=== PATIENT | female | born 1940 | race Caucasian/White ===

== ENCOUNTER 2016-04-26 10:25 | Inpatient (IN) | payer MEDICARE ==
[~2016-04-26] VITALS: Ht 160 cm; Wt 76.4 kg
[~2016-04-26 10:25] MED LIST: ATEN1TAB74 PO; META800 PO; PRED2.5T4 PO
[2016-04-26 10:26] VITALS: BP 172/92; PULSE 75; RESP 22; TEMP 98.4; O2SAT 94
--- NOTE | 2016-04-26 10:37 | PD ---
HPI Chief Complaint: Respiratory Symptoms Time Seen by Provider: 10:32 Travel History International Travel<30 days: No Contact w/Intl Traveler<30days: No Traveled to known affect area: No History of Present Illness HPI 76-year-old female with history of DVT/PE on Xarelto, bronchitis, here for evaluation of cough and shortness of breath. Since around 10 PM last night the patient has had cough productive of yellowish sputum. She is complaining of pain in her anterior chest when she coughs. No known history of coronary artery disease. No hemoptysis. Shortness of breath is at rest, worse with exertion. No fevers or chills. PFSH Past Medical History Arthritis: Yes Cardiovascular Problems: Yes High Cholesterol: Yes Diminished Hearing: No Gastrointestinal Disorders: Yes (IBS) Genitourinary: No Headaches: No Hypertension: Yes Musculoskeletal: Yes (FIBROMYALGIA) Neurologic: No Reproductive: No Respiratory: No Migraines: No Seizures: No ?: Not Past Surgical History Abdominal Surgery: No Cardiac Surgery: No Ear Surgery: No Endocrine Surgery: No Eye Surgery: No Genitourinary Surgery: No Gynecologic Surgery: Yes (HYSTERECTOMY) Hysterectomy: Yes Oral Surgery: No Thoracic Surgery: No Tonsillectomy: Yes Social History Alcohol Use: No Tobacco Use: No Substance Use: No Allergies-Medications (Allergen,Severity, Reaction): Coded Allergies: Codeine (Verified Allergy, Mild, EXCITABLE, 10/31/09) Erythromycins (Verified Allergy, Mild, SORES IN MOUTH, HIVES, 10/31/09) Latex (Verified Allergy, Mild, RASH, 10/31/09) Morphine (Verified Allergy, Mild, EXCITABLE, 10/31/09) Motrin (Verified Allergy, Mild, SORES IN MOUTH, HIVES, 10/31/09) Naprosyn (Verified Allergy, Mild, SORES IN MOUTH HIVES, 10/31/09) Opiate Agonists (Narcotics) (Verified Allergy, Mild, SORES IN MOUTH, HIVES , 10/31/09) Tylenol (Verified Allergy, Mild, MOUTH SORES, HIVES, 10/31/09) Doxycycline (Verified Allergy, Unknown, 04/26/16) Tetracycline (Verified Allergy, Unknown, 04/26/16) Reported Meds & Prescriptions Reported Meds & Active Scripts Active Reported Andrew Back & Body (Aspirin-Caffeine) 500-32.5 Mg Tab 1 Tab PO BID Imitrex Inj (Sumatriptan Succinate) 6 Mg/0.5 Ml Inj 6 Mg SQ ONCE PRN May repeat dose in 1 hour if needed. Bentyl (Dicyclomine HCl) 20 Mg Tab 20 Mg PO EVERY OTHER DAY Pantoprazole (Pantoprazole Sodium) 40 Mg Tab 20 Mg PO BID Celexa (Citalopram Hydrobromide) 20 Mg Tab 10 Mg PO BID Atenolol 50 Mg Tab 50 Mg PO BID Prednisone 5 Mg Tab 5 Mg PO DAILY Xarelto (Rivaroxaban) 20 Mg Tab 20 Mg PO DAILY Review of Systems Except as stated in HPI: all other systems reviewed are Neg Physical Exam Narrative GENERAL: Well-developed, well-nourished, mild respiratory distress, speaking full sentences SKIN: Warm and dry. No rash. HEAD: Atraumatic. Normocephalic. EYES: Pupils equal and round. No scleral icterus. No injection or drainage. ENT: Mucous membranes pink and moist. NECK: Trachea midline. No JVD. CARDIOVASCULAR: Regular rate and rhythm. RESPIRATORY: No accessory muscle use. Coarse breath sounds bilaterally. Breath sounds equal bilaterally. Intermittent cough. GASTROINTESTINAL: Abdomen soft, non-tender, nondistended. MUSCULOSKELETAL: No obvious deformities. No clubbing. No cyanosis. No edema. NEUROLOGICAL: Awake and alert. No obvious cranial nerve deficits. Motor grossly within normal limits. Normal speech. PSYCHIATRIC: Appropriate mood and affect; insight and judgment normal. Data Data Last Documented VS Vital Signs Date Time Temp Pulse Resp B/P Pulse Ox O2 Delivery O2 Flow Rate FiO2 04/26/16 10:44 97 Nasal Cannula 2.00 04/26/16 10:26 98.4 75 22 172/92 Orders Complete Blood Count With Diff (04/26/16 10:36) Comprehensive Metabolic Panel (04/26/16 10:36) B-Type Natriuretic Peptide (04/26/16 10:36) Act Partial Throm Time (Ptt) (04/26/16 10:36) Prothrombin Time / Inr (Pt) (04/26/16 10:36) Ckmb (Isoenzyme) Profile (04/26/16 10:36) Troponin I (04/26/16 10:36) Influenzae A/B Antigen (04/26/16 10:36) Blood Culture (04/26/16 10:36) Iv Access Insert/Monitor (04/26/16 10:36) Electrocardiogram (04/26/16 10:36) Ecg Monitoring (04/26/16 10:36) Oximetry (04/26/16 10:36) Oxygen Administration (04/26/16 10:36) Chest, Single Ap (04/26/16 10:36) Sodium Chloride 0.9% Flush (Ns Flush) (04/26/16 10:45) Methylprednisolone So Succ Inj (Solumedr (04/26/16 10:45) Albuterol-Ipratropium Neb (Duoneb Neb) (04/26/16 10:45) Urinalysis - C+S If Indicated (04/26/16 10:38) Ct Pulmonary Angiogram (04/26/16 12:12) Iohexol 350 Inj (Omnipaque 350 Inj) (04/26/16 13:30) Labs Laboratory Tests Test 04/26/16 04/26/16 10:55 12:35 White Blood Count 6.3 TH/MM3 Red Blood Count 4.27 MIL/MM3 Hemoglobin 12.9 GM/DL Hematocrit 39.1 % Mean Corpuscular Volume 91.5 FL Mean Corpuscular Hemoglobin 30.2 PG Mean Corpuscular Hemoglobin 33.0 % Concent Red Cell Distribution Width 17.3 % Platelet Count 200 TH/MM3 Mean Platelet Volume 8.8 FL Neutrophils (%) (Auto) 62.7 % Lymphocytes (%) (Auto) 15.5 % Monocytes (%) (Auto) 18.4 % Eosinophils (%) (Auto) 2.6 % Basophils (%) (Auto) 0.8 % Neutrophils # (Auto) 4.0 TH/MM3 Lymphocytes # (Auto) 1.0 TH/MM3 Monocytes # (Auto) 1.2 TH/MM3 Eosinophils # (Auto) 0.2 TH/MM3 Basophils # (Auto) 0.0 TH/MM3 CBC Comment AUTO DIFF Differential Total Cells 100 Counted Neutrophils % (Manual) 60 % Band Neutrophils % 2 % Lymphocytes % 11 % Monocytes % 19 % Eosinophils % 4 % Basophils % 1 % Neutrophils # (Manual) 4.1 TH/MM3 Myelocytes 3 % Differential Comment FINAL DIFF MANUAL Platelet Estimate NORMAL Platelet Morphology Comment NORMAL Red Cell Morphology Comment NORMAL Prothrombin Time 11.6 SEC Prothromb Time International 1.0 RATIO Ratio Activated Partial 22.9 SEC Thromboplast Time Sodium Level 143 MEQ/L Potassium Level 3.6 MEQ/L Chloride Level 107 MEQ/L Carbon Dioxide Level 24.5 MEQ/L Anion Gap 12 MEQ/L Blood Urea Nitrogen 15 MG/DL Creatinine 1.06 MG/DL Estimat Glomerular Filtration 51 ML/MIN Rate Random Glucose 81 MG/DL Calcium Level 9.4 MG/DL Total Bilirubin 0.3 MG/DL Aspartate Amino Transf 17 U/L (AST/SGOT) Alanine Aminotransferase 24 U/L (ALT/SGPT) Alkaline Phosphatase 68 U/L Total Creatine Kinase 70 U/L Troponin I LESS THAN 0.02 NG/ML B-Type Natriuretic Peptide 59 PG/ML Total Protein 6.9 GM/DL Albumin 3.5 GM/DL Urine Color YELLOW Urine Turbidity CLEAR Urine pH 6.0 Urine Specific Sylvester 1.013 Urine Protein NEG mg/dL Urine Glucose (UA) NEG mg/dL Urine Ketones NEG mg/dL Urine Occult Blood NEG Urine Nitrite NEG Urine Bilirubin NEG Urine Urobilinogen LESS THAN 2.0 MG/DL Urine Leukocyte Esterase NEG Urine RBC LESS THAN 1 /hpf Urine WBC 1 /hpf Urine Squamous Epithelial 1 /hpf Cells Urine Bacteria RARE /hpf Urine Hyaline Casts 1 /lpf Urine Mucus FEW /lpf Microscopic Urinalysis Comment CULT NOT INDICATED MDM Medical Decision Making Medical Screen Exam Complete: Yes Emergency Medical Condition: Yes Medical Record Reviewed: Yes Interpretation(s) EKG: Sinus, rate 75, normal axis, normal intervals, no acute ischemic abnormality. Differential Diagnosis Pneumonia, bronchitis, influenza, pneumothorax, PE, ACS Narrative Course Vital signs show heart rate 75, blood pressure 172/92, pulse ox 94% on 2 L nasal cannula, oral temp of 98.4F. CBC is essentially unremarkable. CMP is remarkable for creatinine 1.06, GFR 51, otherwise remarkable. BNP is 59. Cardiac enzymes are negative. INR is 1.0. Influenza is negative. UA is not suggestive of UTI. Chest x-ray shows no definite acute disease. CT pulmonary angiogram: FINDINGS: There is no evidence for central pulmonary emboli. There is mild compensated cardiomegaly. There is no axillary or mediastinal adenopathy. Portion of the liver visualized contains only appearance of a cyst. The gallbladder and pancreas are grossly unremarkable. Granulomas are present in the spleen. CONCLUSION: I see no evidence for central pulmonary emboli. The patient was given 3 DuoNeb treatments and IV Solu-Medrol with some improvement in respiratory status. O2 saturation is 96% on 4 L nasal cannula and drops to 89/90% on room air. Patient becomes even more short of breath if she tries to exert herself. She usually walks with a walker which we do not have in the emergency Department, therefore we're unable to observe how far her O2 saturation drops on exertion. The patient still feels very short of breath. She is speaking full sentences. She does have a deep sounding cough. She will be started on Levaquin and will be admitted for overnight observation for dyspnea, hypoxia, bronchitis. Case discussed with [facility] hospitalist Dr. Ponce who will admit the patient to his service. Diagnosis Primary Impression: Dyspnea Qualified Code: R06.00 - Dyspnea, unspecified type Additional Impressions: Hypoxia Bronchitis Admitting Information Admitting Physician Requests: Observation Rohan Banerjee MD Apr 26, 2016 10:37
[2016-04-26 10:44] VITALS: O2SAT 97
[2016-04-26] MEDS: RESP: ALBUTEROL 2.5 MG/IPRATROPIUM 0.5 MG NEB (SCH) INH ×3 (10:44→15:55)
[2016-04-26] MEDS ORDERED: methylPREDNISolone SOD SUCC 125 MG/2 ML VIAL IVP ONE (10:45)
[2016-04-26 11:24] LABS: BASOPHIL % 0.8 % (0.0-2.0); EOSINOPHIL # 0.2 TH/MM3 (0-0.4); EOSINOPHIL % 2.6 % (0.0-4.0); HEMATOCRIT 39.1 % (35.0-46.0); LYMPH % 15.5 % (9.0-44.0); MEAN CELL VOLUME 91.5 FL (80.0-100.0); MEAN CORPUSCULAR HEMOGLOBIN 30.2 PG (27.0-34.0); MONO % 18.4 % (0.0-8.0); NEUT % 62.7 % (16.0-70.0); PLATELET COUNT 200 TH/MM3 (150-450); RED BLOOD COUNT 4.27 MIL/MM3 (4.00-5.30); RED CELL DISTRIBUTION WIDTH 17.3 % (11.6-17.2); WHITE BLOOD COUNT 6.3 TH/MM3 (4.0-11.0)
[2016-04-26 11:30] LABS: HEMO FLAGS AUTO DIFF
[2016-04-26 11:35] LABS: APTT (PATIENT) 22.9 SEC (24.3-30.1); PROTHROMBIN TIME - PATIENT 11.6 SEC (9.8-11.6)
--- NOTE | 2016-04-26 11:38 | RADRPT ---
EXAM DATE/TIME: 04/26/2016 10:46 [facility] COMPARISON: No previous studies available for comparison. INDICATIONS : Difficulty breathing. MEDICAL HISTORY : None. SURGICAL HISTORY : None. ENCOUNTER: Initial ACUITY: 1 day PAIN SCORE: 0/10 LOCATION: Bilateral chest FINDINGS: There is minimal opacity at the lateral left lung base which may be some pleural tenting or scarring. No other definite focal infiltrate and nothing to suggest significant effusion. Cardiomediastinal co ntours are satisfactory. CONCLUSION: No definite acute disease Kayden Rodriguez MD on April 26, 2016 at 11:35 Board Certified Radiologist. This report was verified electronically.
[2016-04-26 11:40] LABS: ALT (GPT) 24 U/L (10-53); ANION GAP 12 MEQ/L (5-15); AST (GOT) 17 U/L (15-37); BICARBONATE 24.5 MEQ/L (21.0-32.0); BLOOD UREA NITROGEN 15 MG/DL (7-18); CHLORIDE 107 MEQ/L (98-107); GLOMERULAR FILTRATION RATE 51 ML/MIN (>89); POTASSIUM 3.6 MEQ/L (3.5-5.1); SODIUM (NA) 143 MEQ/L (136-145)
[2016-04-26 11:44] LABS: ALKALINE PHOSPHATASE 68 U/L (45-117); TOTAL BILIRUBIN ADULT 0.3 MG/DL (0.2-1.0)
[2016-04-26 11:48] LABS: CREATINE KINASE 70 U/L (26-192)
[2016-04-26] MEDS ORDERED: PRED5TAB PO (11:49)
[2016-04-26] MEDS ORDERED: ATEN50TA PO (11:49)
[2016-04-26] MEDS ORDERED: XARE20TA PO (11:49)
[2016-04-26] MEDS ORDERED: CELE20TA PO (11:49)
[2016-04-26] MEDS ORDERED: SUMA6P SQ (11:49)
[2016-04-26] MEDS ORDERED: PANT40TA3 PO (11:49)
[2016-04-26] MEDS ORDERED: BENT20TA PO (11:49)
[2016-04-26] MEDS ORDERED: ASPI-157 PO (11:49)
[2016-04-26 12:17] LABS: BANDS 2 % (0-6); BASOPHILS 1 % (0-2); EOSINOPHILS 4 % (0-4); MYELOCYTES 3 % (0-0); NEUTROPHIL # MANUAL DIFF 4.1 TH/MM3 (1.8-7.7); POLYS (SEG NEUTROPHILS) 60 % (16-70); WBC DIFF SAMPLE 100
[2016-04-26 12:18] LABS: PLATELET ESTIMATE SMEAR NORMAL (NORMAL); PLATELET MORPHOLOGY NORMAL (NORMAL); SCAN/DIFF FINAL DIFF MANUAL
[2016-04-26 12:53] LABS: BACTERIA, URINE RARE /hpf; BLOOD, URINE NEG (NEG); COMMENT (UR) CULT NOT INDICATED; CULTURE IF INDICATED CULT NOT INDICATED; GLUCOSE,URINE NEG (NEG); HYALINE CAST, URINE 1 /lpf (RARE); KETONE, URINE NEG (NEG); MUCUS URINE FEW /lpf (OCC); NITRITE,URINE NEG (NEG); SQUAMOUS EPITHELIAL CELL URINE 1 /hpf (0-5); URINE COLOR YELLOW (YELLW/STRAW)
[2016-04-26] MEDS ORDERED: IOHEXOL 350 MG/ML 10 ML VIAL (for RAD DIAG) IV ONE (13:30)
--- NOTE | 2016-04-26 13:54 | RADRPT ---
EXAM DATE/TIME: 04/26/2016 13:11 [facility] COMPARISON: No previous studies available for comparison. INDICATIONS : Shortness of breath, cough, and chest pain for two days. IV CONTRAST: 60 cc Omnipaque 350 (iohexol) IV RADIATION DOSE: 17.27 CTDIvol (mGy) MEDICAL HISTORY : Hypertension. Bloot clots. SURGICAL HISTORY : Hysterectomy. ENCOUNTER: Initial ACUITY: 2 days PAIN SCALE: 5/10 LOCATION: Bilateral chest TECHNIQUE: Volumetric scanning of the chest was performed using a pulmonary embolism protocol MIP images were re constructed. Using automated exposure control and adjustment of the mA and/or kV according to patien t size, radiation dose was kept as low as reasonably achievable to obtain optimal diagnostic quality images. FINDINGS: There is no evidence for central pulmonary emboli. There is mild compensated cardiomegaly. There is no axillary or mediastinal adenopathy. Portion of the liver visualized contains only appearance of a cyst. The gallbladder and pancreas are grossly unremarkable. Granulomas are present in the spleen. CONCLUSION: I see no evidence for central pulmonary emboli. Eric Suarez MD FACR on April 26, 2016 at 13:39 Board Certified Radiologist. This report was verified electronically.
[2016-04-26] MEDS ORDERED: LEVOFLOXACIN 500 MG PREMIX INJ 100 ML IV ONE (14:30)
--- NOTE | 2016-04-26 14:54 | EKG ---
Date Performed: 04/26/2016 Time Performed: 10:31:32 PTAGE: 76 years EKG: BASELINE ARTIFACT PRESENT. Sinus rhythm POSSIBLE ANTERIOR MYOCARDIAL INFARCTION BORDERLINE ECG NO PREVIOUS TRACING DOCTOR: Michael Mendiola Interpretating Date/Time 04/26/2016 14:53:49
[2016-04-26] MEDS: RESP: ALBUTEROL 2.5 MG/IPRATROPIUM 0.5 MG NEB (SCH) NEB ×2 (16:00→21:38)
[2016-04-26] MEDS ORDERED: PILL SPLITTER OTHER PRN (17:15)
--- NOTE | 2016-04-26 18:28 | HHI.PR ---
Objective Objective Results - Vital Signs Date Time Temp Pulse Resp B/P Pulse Ox O2 Delivery O2 Flow Rate FiO2 04/26/16 10:44 97 Nasal Cannula 2.00 04/26/16 10:26 98.4 75 22 172/92 94 Result Diagram: 04/26/16 1055 04/26/16 1055 Other Results Laboratory Tests Test 04/26/16 04/26/16 10:55 12:35 White Blood Count 6.3 Red Blood Count 4.27 Hemoglobin 12.9 Hematocrit 39.1 Mean Corpuscular Volume 91.5 Mean Corpuscular Hemoglobin 30.2 Mean Corpuscular Hemoglobin 33.0 Concent Red Cell Distribution Width 17.3 Platelet Count 200 Mean Platelet Volume 8.8 Neutrophils (%) (Auto) 62.7 Lymphocytes (%) (Auto) 15.5 Monocytes (%) (Auto) 18.4 Eosinophils (%) (Auto) 2.6 Basophils (%) (Auto) 0.8 Neutrophils # (Auto) 4.0 Lymphocytes # (Auto) 1.0 Monocytes # (Auto) 1.2 Eosinophils # (Auto) 0.2 Basophils # (Auto) 0.0 CBC Comment AUTO DIFF Differential Total Cells 100 Counted Neutrophils % (Manual) 60 Band Neutrophils % 2 Lymphocytes % 11 Monocytes % 19 Eosinophils % 4 Basophils % 1 Neutrophils # (Manual) 4.1 Myelocytes 3 Differential Comment FINAL DIFF MANUAL Platelet Estimate NORMAL Platelet Morphology Comment NORMAL Red Cell Morphology Comment NORMAL Prothrombin Time 11.6 Prothromb Time International 1.0 Ratio Activated Partial 22.9 Thromboplast Time Sodium Level 143 Potassium Level 3.6 Chloride Level 107 Carbon Dioxide Level 24.5 Anion Gap 12 Blood Urea Nitrogen 15 Creatinine 1.06 Estimat Glomerular Filtration 51 Rate Random Glucose 81 Calcium Level 9.4 Total Bilirubin 0.3 Aspartate Amino Transf 17 (AST/SGOT) Alanine Aminotransferase 24 (ALT/SGPT) Alkaline Phosphatase 68 Total Creatine Kinase 70 Troponin I LESS THAN 0.02 B-Type Natriuretic Peptide 59 Total Protein 6.9 Albumin 3.5 Urine Color YELLOW Urine Turbidity CLEAR Urine pH 6.0 Urine Specific Hector 1.013 Urine Protein NEG Urine Glucose (UA) NEG Urine Ketones NEG Urine Occult Blood NEG Urine Nitrite NEG Urine Bilirubin NEG Urine Urobilinogen LESS THAN 2.0 Urine Leukocyte Esterase NEG Urine RBC LESS THAN 1 Urine WBC 1 Urine Squamous Epithelial 1 Cells Urine Bacteria RARE Urine Hyaline Casts 1 Urine Mucus FEW Microscopic Urinalysis Comment CULT NOT INDICATED Date/Time Procedure Status Source Growth 04/26/16 10:55 Aerobic Blood Culture Received Blood Peripheral Pending 04/26/16 10:55 Anaerobic Blood Culture Received Blood Peripheral Pending 04/26/16 10:35 Influenza Types A,B Antigen (JIMMY) - Final Complete Nasal Washing NEGATIVE FOR FLU A AND B ANTIGEN.... Physical Exam Physical Exam PT is seen & Examined d/w PT d/w Dominga see Orders see H&P will f/u Marshall Ponce MD Apr 26, 2016 18:28
[2016-04-26 19:15] VITALS: BP 128/74; PULSE 83; RESP 16; O2SAT 95
[2016-04-26] MEDS: cefTRIAXone INJ 1,000 MG in SODIUM CHLORIDE 0.9% INJ 100 ML IV SCH (19:16)
[2016-04-26 20:09] VITALS: BP 149/70; PULSE 61; RESP 18; TEMP 97.9; O2SAT 95
[2016-04-26] MEDS: methylPREDNISolone SOD SUCC 40 MG/1 ML VIAL IV SCH (20:42)
[2016-04-26] MEDS: CITALOPRAM HYDROBROMIDE 20 MG TAB PO SCH (20:43)
[2016-04-26] MEDS: PANTOPRAZOLE SOD 20 MG DELAYED RELEASE TAB PO SCH (20:43)
[2016-04-26] MEDS: ATENOLOL 50 MG TAB PO SCH (20:43)
[2016-04-26] MEDS ORDERED: [UNRECOGNIZED DRUG - OTHER] PO SCH (21:00)
[2016-04-26] MEDS ORDERED: ASPIRIN CAFFEINE PO SCH (21:00)
[2016-04-26 21:39] VITALS: O2SAT 93
[2016-04-27] VITALS (8 sets, daily range): BP systolic 142–163; BP diastolic 70–88; PULSE 73–80; RESP 16–18; TEMP 96.3–98; O2SAT 95–97
[2016-04-27] MEDS: methylPREDNISolone SOD SUCC 40 MG/1 ML VIAL IV SCH ×4 (04:33→20:11)
[2016-04-27] MEDS: SUMAtriptan INJ 6 MG/0.5 ML VIAL SQ PRN (04:37)
[2016-04-27] MEDS: RESP: ALBUTEROL 2.5 MG/IPRATROPIUM 0.5 MG NEB (SCH) NEB ×4 (07:40→20:09)
--- NOTE | 2016-04-27 08:22 | HHI.PR ---
Subjective Remarks Cough with wheezing hoarseness anxiety restless in bed No chest pain Shortness of breath at rest (Dominga Shelley) Objective Objective Results - Vital Signs Date Time Temp Pulse Resp B/P Pulse Ox O2 Delivery O2 Flow Rate FiO2 04/27/16 07:57 97.2 80 18 147/88 95 04/27/16 07:40 97 Nasal Cannula 6.00 04/27/16 04:45 98.0 80 18 142/87 97 04/27/16 00:19 98.0 78 18 147/82 95 04/26/16 21:39 93 Nasal Cannula 6.00 04/26/16 20:09 97.9 61 18 149/70 95 04/26/16 19:15 83 16 128/74 95 Nasal Cannula 2 04/26/16 12:00 94 Nasal Cannula 3 04/26/16 10:44 97 Nasal Cannula 2.00 04/26/16 10:26 98.4 75 22 172/92 94 (Dominga Shelley) Result Diagram: 04/26/16 1055 04/26/16 1055 ROS General: Weakness, Other (10 point ROS done. Positives include weakness, cough , shortness of breath, wheezing, restlessness) Pulmonary: Cough, SOB, Wheezing Neuro/MS: Other (restlessness) (Dominga Shelley) Physical Exam Physical Exam PHYSICAL EXAMINATION GENERAL: This is a well-developed, well-nourished female who appears to be mild distress. She is alert and awake, oriented 4. Restless in bed. HEAD: Normocephalic without any lesion or mass noted. Facial features appear symmetric. OROPHARYNGEAL: Oropharynx without erythema or edema. NECK: Supple. No nuchal rigidity or lymphadenopathy. Trachea midline without deviation. CARDIAC: Regular rhythm, regular rate, S1 and S2 are heard, but distant. Murmur none; no gallops or rubs. No pedal edema, pulses intact LUNGS: Decreased breath sounds to auscultation bilaterally. Positive for expiratory wheeze upper lung fish, positive for rhonchi, no rale. uses accessory muscles on inspiration or expiration. ABDOMEN: Flat ,Soft, nontender, no organomegaly or masses. Bowel sounds are heard in all four quadrants. No rebound. No guarding. EXTREMITIES: No edema. Pulses equal bilateral. No cyanosis. NEUROLOGICAL: Patient mood and affect appropriate. No focal deficit, restlessness SKIN:Warm and dry, no rashes. Objective Remarks I just cant get comfortable. This cough keeps me from resting. (Dominga Shelley) A/P Assessment and Plan Acute on chronic bronchitis Hypoxia Migraine Muscle skeletal pain, lower back, chest wall, extremities Shortness of breath, dyspnea at rest and on exertion COPD Anxiety with restlessness Duonebs, O2 therapy, IV steroids Rocephin IV Reconcile home meds Heart healthy diet. Vital signs every 4 hours Monitor labs Restlessness may be secondary to IV steroids. Supportive care to patient for rest Pain management PUD prophylaxis Discharge Planning Home Discussed With: Nurse, Family (patient), Other (Dr. Ponce. Patient seen on his behalf) (Dominga Shelley) Assessment and Plan pt is seen & examined still very symptomatic SOB/Wheezing/coughing needs IV steroids / aerosol tx anti tussive meet Inpatient criteria, will change to Inpatient Expected LOS is 3 to 4 days . possible d./c home when stable d/w Dominga d/w disease case manager rn consult pulmonary also [facility] drug allergies/intolerance will f/u (Marshall Ponce MD) Dominga Shelley Apr 27, 2016 08:22 Marshall Ponce MD Apr 27, 2016 10:39
--- NOTE | 2016-04-27 08:55 | MH ---
cc: MARIAA PONCE DATE OF ADMISSION: 04/26/2016 CHIEF COMPLAINT: Cough and shortness of breath. TRAVEL HISTORY: None in the last 30 days. HISTORY OF PRESENT ILLNESS: This is a 76 year-old white female who has been in her usual state of health up until last night approximately 10 o'clock. The patient had a coughing spell which has progressively gotten worse over the past two years. She did cough up a productive yellow sputum. She states that she was coughing so hard she now is having chest pain when coughing. Her chest wall is sore to touch and does appear to be pleuritic in nature. The patient has no known allergies but has been coughing nonproductive off and on for the past two years. She has been seeing her PCP who had her on p.o. prednisone. She denies any seasonal allergies but states there has been some work on her apartment off and on for remodeling. The patient denies any shortness of breath here on admission and at rest. She has no history of coronary disease. She denies any fever, chills, no headache, no nausea, no vomiting, no diarrhea, no constipation. She denies any hemoptysis. The patient does have a history of DVT in her left leg, right arm and pulmonary emboli in September of 2015. Currently the patient is on Xarelto. She takes her medications as prescribed and does follow up with her physicians. The patient noted one dizzy sensation after she got to the emergency room. This was probable secondary to hyperventilation according to the nurse. PAST MEDICAL HISTORY: 1. DVT, left leg, right arm. 2. Pulmonary emboli. All of this in September of 2015. 3. Arthritis. 4. Hyperlipidemia. 5. IBS. 6. Hypertension. 7. Fibromyalgia 8. Cataracts bilateral. PAST SURGICAL HISTORY: 1. Bilateral cataracts. 2. Hysterectomy. 3. Tonsillectomy. ALLERGIES: CODEINE ERYTHROMYCIN LATEX MORPHINE MOTRIN NAPROSYN OPIATE AGONIST TYLENOL DOXYCYCLINE TETRACYCLINE MEDICATIONS: 1. Andrew Aspirin 2. Imitrex 3. Bentyl 4. Pantoprazole 20 milligrams p.o. b.i.d. 5. Celexa 6. Atenolol 7. Prednisone 8. Xarelto SOCIAL HISTORY: The patient is . She lives alone in independent living, [place] She denies alcohol, tobacco or illicit drug use. REVIEW OF SYSTEMS: A 12 point review was obtained. The patient does note shortness of breath, positive for yellow sputum, cough, dizziness x1, no fevers, no chills, shortness of breath, worse with exertion. All other symptoms are unremarkable or negative. PHYSICAL EXAMINATION: GENERAL: This is a well-developed, well-nourished white female, looks to be her stated age, resting in the bed, slightly anxious, good historian. SKIN: Warm and dry. No rash. HEENT: Atraumatic, normocephalic. PERRLA. No scleral icterus, no drainage. Mucous membranes are pink and moist. No nasal drainage, trachea midline, no JVD. CARDIOVASCULAR: Regular rate and rhythm. No murmurs, rubs, or gallops appreciated. EXTREMITIES: Trace edema in her left lower leg and ankle, no edema in the right lower leg. Pulses intact. RESPIRATORY: Patient has coarse breath sounds bilaterally in her anterior lobes. She is essentially clear, mid and posterior. Positive for cough even at rest. GASTROINTESTINAL: Abdomen is round, soft, non-tender, non-distended. Active bowel sounds in all four quadrants. MUSCULOSKELETAL: She moves her extremities with purpose. She has no obvious deformity. No clubbing, no cyanosis. NEUROLOGIC: Alert, oriented x4. She is a good historian. Speech is normal. PSYCHIATRIC: Appropriate mood. Judgment is normal. VITAL SIGNS: Temperature 98.4, pulse 76, respiratory rate 22, blood pressure 172/92. LABORATORY DATA: WBC count is 6.3, RBC 4.27, hemoglobin 12.9, hematocrit 39.1, platelet count is 200, monocyte auto is 18.4, coag, PT/INR is 1. Urine is yellow clear, pH 6, specific gravity 1.013, negative for protein, glucose, ketones, occult blood, nitrites, bilirubin, rare urine bacteria. Chemistry shows sodium 143, potassium 3.6, chloride 107, carbon dioxide 24.5, anion gap 12, BUN 15, creatinine 1.06. GFR 51, alkaline phosphatase 68, bilirubin 0.3. Albumin 3.5. IMAGING STUDIES: Chest x-ray, no definite acute disease. Angiography CT, no evidence of central pulmonary emboli. ASSESSMENT: 1. Acute and chronic bronchitis exacerbation. 2. Anemia, mild. Probably for chronic disease. 3. Hypoxia. 4. Dyspnea. Unspecified type. 5. Acute kidney injury, mild, possible dehydration. 6. History of hyperlipidemia. 7. Hypertension. 8. History of fibromyalgia. PLAN: Admit for observation. Patient has received IV steroids in the ER. Her medications have been reconciled, one dose of IV steroids in the ER which included DuoNeb. The patient will have continuous ECG monitoring, IV access, influenzae A is negative. Will monitor her blood count which will include blood count in the morning. Patient has been started on Rocephin IV 24 hours, regular diet. Vital signs q4. O2 on two liters, DuoNeb, SCDs. The patient is full code for aggressive. We will follow. ADDENDUM PLAN VTE prophylaxis. The patient is on Xarelto. PUD prophylaxis. On Protonix. Dictated by: ELVIRA Willis MD LUZ Lamb/ENEDINA /5:48 PM /8:45 AM PT is seen & Examined d/w PT d/w Dominga coy Orders see H&P will f/u Marshall Ponce MD Apr 26, 2016 18:28 MTDD
[2016-04-27] MEDS ORDERED: predniSONE 5 MG TAB PO SCH (09:00)
[2016-04-27] MEDS: CITALOPRAM HYDROBROMIDE 20 MG TAB PO SCH ×2 (09:11→20:11)
[2016-04-27] MEDS: RIVAROXABAN 20 MG TAB PO SCH (09:11)
[2016-04-27] MEDS: PANTOPRAZOLE SOD 20 MG DELAYED RELEASE TAB PO SCH ×2 (09:11→20:11)
[2016-04-27] MEDS: ATENOLOL 50 MG TAB PO SCH ×2 (09:12→20:11)
[2016-04-27] MEDS: BENZONATATE 100 MG CAP PO PRN (17:56)
[2016-04-27] MEDS: cefTRIAXone INJ 1,000 MG in SODIUM CHLORIDE 0.9% INJ 100 ML IV SCH (17:57)
[2016-04-27] MEDS: guaiFENesin/DEXTROMETHORPHAN 200 MG/20 MG/10 ML CUP PO SCH (20:11)
[2016-04-28] VITALS (8 sets, daily range): BP systolic 136–168; BP diastolic 73–93; PULSE 67–82; RESP 16–17; TEMP 96.4–98.2; O2SAT 94–99
[2016-04-28] MEDS: BENZONATATE 100 MG CAP PO PRN ×2 (00:36→12:11)
[2016-04-28] MEDS: methylPREDNISolone SOD SUCC 40 MG/1 ML VIAL IV SCH ×4 (01:37→21:42)
[2016-04-28] MEDS: guaiFENesin/DEXTROMETHORPHAN 200 MG/20 MG/10 ML CUP PO SCH ×4 (01:42→21:42)
--- NOTE | 2016-04-28 08:21 | MB ---
cc: KAYLA LINN DATE OF CONSULTATION 04/27/[address] Ponce REASON FOR CONSULTATION Evaluation of shortness of breath and persistent cough. HISTORY OF PRESENT ILLNESS Ms. Alva is a pleasant 76-year-old female who has a history of persistent cough for the last two years or so. Her cough is mostly dry, worse at night time. She has cough for a week or so, then it goes away and the cough is back. She says that three-quarters of a month, she has cough and she has few days of relief. At this time, her cough was getting much worse. She did not have any fever or chills. No night sweats, nausea or vomiting. No wheezing. She does have harsh breath sounds. With this worsening of cough, she came to the hospital. She had a workup done. Her CTA of the chest shows no pulmonary embolism, no acute cardiopulmonary process. Her CBC showed a WBC count of 6.3, hemoglobin 12.9, hematocrit 39, MCV 91.5, platelet count of 200. Sodium 143, potassium 3.6, chloride 107, CO2 24, BUN of 15, creatinine of 1.06. PAST MEDICAL HISTORY Significant for a 1. History of pulmonary embolism 2. DVT in the left leg and DVT in the right arm 3. Hyperlipidemia 4. Fibromyalgia 5. Hysterectomy 6. Tonsillectomy 7. Cataract surgery MEDICATIONS She is currently takin. Dicyclomine 20 mg every other day 2. Tessalon 200 mg three times a day 3. Xarelto 20 mg a day 4. Timolol 50 mg twice a day 5. Citalopram 10 mg twice a day 6. Protonix 20 mg twice a day 7. Solu-Medrol 40 mg q6-hour 8. Rocephin 1 gram a day 9. Albuterol/Atrovent nebulizer treatment 10. Imitrex 6 mg p.r.n. ALLERGIES She has multiple allergies including CODEINE, DOXYCYCLINE, AZITHROMYCIN, STATINS, LATEX, LYRICA, MORPHINE, MOTRIN, NAPROSYN, NITRATE, OPIATES, PHENERGAN, TETRACYCLINE, TYLENOL, SULFATE AND NITRITES. SOCIAL HISTORY She is a , she lost her boyfriend recently. She has no history of smoking or alcohol abuse. 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 FAMILY HISTORY She has two children. REVIEW OF SYSTEMS Normally she is up around and active. Weight is stable. No DVT or pulmonary embolism. No seizure, stroke or epilepsy. No bleeding from any site. PHYSICAL EXAMINATION This is a pleasant elderly female mildly short of breath and mild discomfort because of persistent cough. VITAL SIGNS: Blood pressure 155/87, heart rate 75, respirations 16, temperature 97.3. HEENT: Pupils are equal and reactive. She had bilateral cataract surgery done. Oral mucosa and nasal mucosa normal. NECK: Supple. JVD not elevated. CHEST: Good breath sounds bilat, no significant rhonchi. CARDIOVASCULAR: S1 and S2 normal. ABDOMEN: Benign. EXTREMITIES: No edema. IMPRESSION 1. 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 2. Multiple drug allergies. 3. Bronchitis 4. DVT 5. Pulmonary embolism 6. Hypertension 7. Anxiety disorder PLAN I discussed with the patient, I will check a pulmonary function study. Continue IV Solu-Medrol, aerosol treatment, Tessalon 200 mg three times a day. I will start her on Robitussin DM cough syrup three times a day. If her cough persists, we will consider holding her beta yvette. Further recommendations depends on her course in the hospital. Thank you Dr. Ponce for this consultation. MD KAE Ha/ALVIN /7:04 PM /7:57 AM DEXTER
[2016-04-28] MEDS: RESP: ALBUTEROL 2.5 MG/IPRATROPIUM 0.5 MG NEB (SCH) NEB ×4 (09:12→20:51)
[2016-04-28] MEDS: CITALOPRAM HYDROBROMIDE 20 MG TAB PO SCH ×2 (09:26→21:42)
[2016-04-28] MEDS: PANTOPRAZOLE SOD 20 MG DELAYED RELEASE TAB PO SCH ×2 (09:26→21:43)
[2016-04-28] MEDS: DICYCLOMINE HCL 20 MG TAB PO SCH (09:26)
[2016-04-28] MEDS: ATENOLOL 50 MG TAB PO SCH ×2 (09:27→21:43)
[2016-04-28] MEDS: RIVAROXABAN 20 MG TAB PO SCH (09:27)
[2016-04-28] MEDS: SODIUM CHLORIDE 0.9% FLUSH 5 ML FLUSH IVF PRN (09:33)
--- NOTE | 2016-04-28 11:43 | HHI.PR ---
Subjective Remarks Cough with wheezing hoarseness anxiety restless in bed, does appear to be resting some better. No chest pain Shortness of breath at rest Appetite fair Objective Objective Results - Vital Signs Date Time Temp Pulse Resp B/P Pulse Ox O2 Delivery O2 Flow Rate FiO2 04/28/16 09:25 95 Nasal Cannula 4.00 04/28/16 08:00 96.8 67 16 164/93 95 04/28/16 04:00 96.9 69 17 168/80 96 04/28/16 00:00 96.4 73 17 146/76 94 04/27/16 20:09 96 Nasal Cannula 4.00 04/27/16 20:00 96.3 74 17 163/72 96 04/27/16 17:30 97.3 75 16 155/87 97 04/27/16 12:20 73 18 154/70 96 I/O 04/27/16 04/27/16 04/27/16 04/28/16 04/28/16 04/28/16 07:00 15:00 23:00 07:00 15:00 23:00 Intake Total 480 ml Balance 480 ml Intake Oral 480 ml Result Diagram: 04/26/16 1055 04/26/16 1055 Other Results Last Impressions CT Angiography 04/26/16 1212 Signed Impressions: Service Date/Time: Tuesday, April 26, 2016 13:11 - CONCLUSION: I see no evidence for central pulmonary emboli. Eric Suarez MD FACR Chest X-Ray 04/26/16 1036 Signed Impressions: Service Date/Time: Tuesday, April 26, 2016 10:46 - CONCLUSION: No definite acute disease Kayden Rodriguez MD Medications and IVs Active Medications Guaifenesin/ Dextromethorphan (Robitussin Dm 200-20 Mg/10 ml Liq) 10 ml Q6H PO Last administered on 04/28/16t 09:32; Admin Dose 10 ML; Start 04/27/16 at 20:00 ROS General: Fatigue, Weakness (10 point review done of systems. Negative or unremarkable except for fatigue, weakness, cough, shortness of breath, wheezing. ) Pulmonary: Cough, SOB, Wheezing Skin: Other (afebrile) Physical Exam Physical Exam Physical Exam Physical Exam PHYSICAL EXAMINATION GENERAL: This is a well-developed, well-nourished female who appears to be mild distress with cough and shortness of breath. She is alert and awake, oriented 4. Anxious HEAD: Normocephalic without any lesion or mass noted. Facial features appear symmetric. OROPHARYNGEAL: Oropharynx without erythema or edema. NECK: Supple. No nuchal rigidity or lymphadenopathy. Trachea midline without deviation. CARDIAC: Regular rhythm, regular rate, S1 and S2 are heard, but distant. Murmur none; no gallops or rubs. No pedal edema, pulses intact LUNGS: Decreased breath sounds to auscultation bilaterally. Positive for expiratory wheeze upper lung fish, positive for coarse rhonchi, no rale. uses accessory muscles on inspiration or expiration. Coughs with deep breath. ABDOMEN: ,Soft, nontender, no organomegaly or masses. Bowel sounds are heard in all four quadrants. No rebound. No guarding. EXTREMITIES: No edema. Pulses equal bilateral. No cyanosis. NEUROLOGICAL: Patient mood and affect appropriate with some anxiety. No focal deficit, restlessness SKIN:Warm and dry, no rashes., Pale Objective Remarks Im still not felling well. A/P Assessment and Plan Acute on chronic bronchitis with possible reactive airway disease. Patient still has wheezes, deep nonproductive cough but course. Hypoxia resolved Migraine yesterday, but none today Muscle skeletal pain, lower back, chest wall, extremities Shortness of breath, dyspnea at rest and on exertion COPD Anxiety with restlessness Duonebs, O2 therapy, IV steroids Rocephin IV Reconcile home meds Heart healthy diet. Appetite fairly good eating 80% Vital signs every 4 hours, afebrile the past 24 hours Monitor labs, Restlessness may be secondary to IV steroids. Supportive care to patient for rest Pain management PUD prophylaxis Appreciate pulmonary consult. Thinks this could be reactive airway disease. Planning on pulmonary function test. Appreciate her expert opinion. Will follow. Tessalon Perles ordered for cough. Will give patient another 24 hours with IV antibiotics and hydration and IV steroids. We'll then look at discharge and follow-up with pulmonary on an outpatient basis if patient has no hypoxia. Discharge Planning Home Discussed With: Nurse, Family (patient), Other (Dr. Ponce. Patient seen on his behalf) Dominga Shelley Apr 28, 2016 11:43
--- NOTE | 2016-04-28 18:03 | HHI.PR ---
Subjective Remarks 76 YOWF with DVT,PE, persistant cough minimal sp No fever mild wheezing Objective Vital Signs Vital Signs Date Time Temp Pulse Resp B/P Pulse Ox O2 Delivery O2 Flow Rate FiO2 04/28/16 16:00 98.2 69 16 146/92 95 04/28/16 12:00 97.6 82 16 158/86 94 04/28/16 09:25 95 Nasal Cannula 4.00 04/28/16 08:00 96.8 67 16 164/93 95 04/28/16 04:00 96.9 69 17 168/80 96 04/28/16 00:00 96.4 73 17 146/76 94 04/27/16 20:09 96 Nasal Cannula 4.00 04/27/16 20:00 96.3 74 17 163/72 96 I/O 04/27/16 04/27/16 04/27/16 04/28/16 04/28/16 04/28/16 07:00 15:00 23:00 07:00 15:00 23:00 Intake Total 480 ml 240 ml Balance 480 ml 240 ml Intake Oral 480 ml 240 ml # Voids 5 2 # Bowel Movements 3 Result Diagram: 04/26/16 1055 04/26/16 1055 Objective Remarks GENERAL: WBWN WF with cough SKIN: Warm and dry. HEAD: Normocephalic. EYES: No scleral icterus. No injection or drainage. NECK: Supple, trachea midline. No JVD or lymphadenopathy. CARDIOVASCULAR: Regular rate and rhythm without murmurs, gallops, or rubs. RESPIRATORY: Breath sounds equal bilaterally. No accessory muscle use. Harsh BS, mild wheezing GASTROINTESTINAL: Abdomen soft, non-tender, nondistended. MUSCULOSKELETAL: No cyanosis, or edema. BACK: Nontender without obvious deformity. No CVA tenderness. A/P Assessment and Plan Ac Bronchitis RAD DVT PE HTN Anxiety PLAN: Cont Steroids Aerosol nebs Robitussin DM Tessalon 200 mg tid Throat Lozenges Lee Page MD Apr 28, 2016 18:03
[2016-04-28] MEDS: cefTRIAXone INJ 1,000 MG in SODIUM CHLORIDE 0.9% INJ 100 ML IV SCH (18:59)
[2016-04-29] VITALS (10 sets, daily range): BP systolic 110–190; BP diastolic 77–104; PULSE 75–106; RESP 17–20; TEMP 96.1–98.7; O2SAT 91–98
[2016-04-29] MEDS: guaiFENesin/DEXTROMETHORPHAN 200 MG/20 MG/10 ML CUP PO SCH ×4 (02:23→20:01)
[2016-04-29] MEDS: methylPREDNISolone SOD SUCC 40 MG/1 ML VIAL IV SCH (02:23)
[2016-04-29] MEDS: BENZONATATE 100 MG CAP PO PRN ×2 (02:24→12:54)
[2016-04-29] MEDS: SUMAtriptan INJ 6 MG/0.5 ML VIAL SQ PRN (05:15)
[2016-04-29] MEDS: RESP: ALBUTEROL 2.5 MG/IPRATROPIUM 0.5 MG NEB (SCH) NEB ×4 (07:50→19:16)
--- NOTE | 2016-04-29 09:43 | HHI.PR ---
Subjective Subjective Remarks not feeling well, inc. cough, can't mobilize secretions, small amount sputum that is yellow inc. wheezing appetite fair no fever no cp Review of Systems Constitutional Constitutional Remarks 12 point ROS completed, negative except as noted above Vitals/Results Intake & Output 04/28/16 04/28/16 04/29/16 15:00 23:00 07:00 Intake Total 480 ml 480 ml 480 ml Balance 480 ml 480 ml 480 ml Intake Oral 480 ml 480 ml 480 ml # Voids 5 3 3 # Bowel Movements 3 Vital Signs Vital Signs Date Time Temp Pulse Resp B/P Pulse Ox O2 Delivery O2 Flow Rate FiO2 04/29/16 07:56 98.3 97 20 112/98 95 04/29/16 06:15 18 04/29/16 04:00 98.6 75 18 190/104 91 04/29/16 00:00 98.1 78 17 140/90 94 04/28/16 20:51 99 Nasal Cannula 4.00 04/28/16 20:00 97.5 79 17 136/73 94 04/28/16 16:00 98.2 69 16 146/92 95 04/28/16 12:00 97.6 82 16 158/86 94 CBC/BMP: 04/26/16 1055 04/26/16 1055 Physical Exam General General Appearance: Well Developed, No Acute Distress, Comfortable Eyes Eye Exam: Pupils Equal, Pupils Reactive Ears & Nose Ears & Nose Exam: Nasal Mucosa [place] Throat Throat Exam: Oral Mucosa [place] & Moist Neck Neck Exam: Neck Supple, Trachea Midline Pulmonary Resp Exam: Rhonchi, Diminished Breath Sounds Resp Remarks wheeze Cardiology CV Exam: Regular Gastrointestinal/Abdomen GI Exam: Soft, Non-Tender, Bowel Sounds Present, Non-Distended Musculoskeletal MS Exam: Joints Intact Integumentary Skin Exam: Warm, Dry Extremeties Extremities Exam: No Edema, Pedal Pulses Palpable Neurologic Neuro Exam: Alert, Awake, Oriented, Speech Clear, Moving All Extremities, No Focal Deficits Psychiatric Psych Exam: Appropriate Responses VTE Prophylaxis VTE Remarks Xarelto PUD Prophylasis PUD Prophylaxis: Protonix Assessment/Plan Problem List: (1) Dyspnea (2) Hypoxia (3) Bronchitis (4) Hx of deep venous thrombosis (5) Hx pulmonary embolism (6) Fibromyalgia (7) Migraine Assessment/Plan continue with Duonebs, O2 therapy, IV steroids-will increase to 60 mg IV q 6 continue Tessalon will add Mucinex appreciate pulm input CTA neg. PE poss. reactive airway disease continue antibiotics continue Xarelto PPI for PUD prophylaxis Migraines initially, none now, continue Imitrex PRN Not ready for discharge, symptomatic D/W RN D/W Dr. Collazo D/W pt. This pt. was seen by myself and Dr. Collazo, this note is written on his behalf. Problem Qualifiers (1) Dyspnea: Qualified Code: R06.00 - Dyspnea, unspecified type (2) Migraine: Qualified Code: G43.909 - Migraine without status migrainosus, not intractable , unspecified migraine type Ifrah Salazar Apr 29, 2016 09:43
[2016-04-29] MEDS: PANTOPRAZOLE SOD 20 MG DELAYED RELEASE TAB PO SCH (09:52)
[2016-04-29] MEDS: CITALOPRAM HYDROBROMIDE 20 MG TAB PO SCH ×2 (09:52→19:46)
[2016-04-29] MEDS: ATENOLOL 50 MG TAB PO SCH ×2 (09:52→19:46)
[2016-04-29] MEDS: RIVAROXABAN 20 MG TAB PO SCH (09:54)
[2016-04-29] MEDS: guaiFENesin E.R. 600 MG TAB PO SCH ×2 (10:03→19:46)
[2016-04-29] MEDS: methylPREDNISolone SOD SUCC 125 MG/2 ML VIAL IV SCH ×2 (15:14→19:45)
[2016-04-29] MEDS: cefTRIAXone INJ 1,000 MG in SODIUM CHLORIDE 0.9% INJ 100 ML IV SCH (17:40)
[2016-04-29] MEDS: ASPIRIN 325 MG TAB PO PRN (19:33)
[2016-04-29] MEDS: PANTOPRAZOLE SOD 40 MG DELAYED RELEASE TAB PO SCH (19:45)
[2016-04-30] VITALS (9 sets, daily range): BP systolic 157–210; BP diastolic 59–115; PULSE 70–79; RESP 18–20; TEMP 96.6–97.7; O2SAT 93–98
[2016-04-30] MEDS: BENZONATATE 100 MG CAP PO PRN (00:35)
[2016-04-30] MEDS: methylPREDNISolone SOD SUCC 125 MG/2 ML VIAL IV SCH ×4 (02:03→22:51)
[2016-04-30] MEDS: guaiFENesin/DEXTROMETHORPHAN 200 MG/20 MG/10 ML CUP PO SCH ×4 (02:04→22:48)
[2016-04-30] MEDS: ATENOLOL 50 MG TAB PO SCH ×2 (06:17→22:50)
[2016-04-30] MEDS: RESP: ALBUTEROL 2.5 MG/IPRATROPIUM 0.5 MG NEB (SCH) NEB ×3 (07:53→15:46)
[2016-04-30] MEDS: PANTOPRAZOLE SOD 40 MG DELAYED RELEASE TAB PO SCH (08:22)
[2016-04-30] MEDS: DICYCLOMINE HCL 20 MG TAB PO SCH (08:22)
[2016-04-30] MEDS: RIVAROXABAN 20 MG TAB PO SCH (08:22)
[2016-04-30] MEDS: guaiFENesin E.R. 600 MG TAB PO SCH ×2 (08:22→22:48)
[2016-04-30] MEDS: CITALOPRAM HYDROBROMIDE 20 MG TAB PO SCH ×2 (08:23→22:50)
[2016-04-30] MEDS: SODIUM CHLORIDE 0.9% FLUSH 5 ML FLUSH IVF PRN (08:30)
--- NOTE | 2016-04-30 12:08 | HHI.PR ---
Subjective Subjective Remarks Wheezing and cough improved some SOB with activity no fever was hearing people talking last 2 nights, auditory hallucinations, has never happened before. oriented x 3, no visual or auditory hallucinations. BP uncontrolled overnight 200s Review of Systems Constitutional Constitutional Remarks 12 point ROS completed, negative except as noted above Vitals/Results Intake & Output 04/29/16 04/29/16 04/30/16 15:00 23:00 07:00 Intake Total 720 ml 240 ml Balance 720 ml 240 ml Intake Oral 720 ml 240 ml # Voids 7 1 # Bowel Movements 1 Vital Signs Vital Signs Date Time Temp Pulse Resp B/P Pulse Ox O2 Delivery O2 Flow Rate FiO2 04/30/16 07:55 93 Nasal Cannula 3.00 04/30/16 07:47 96.6 77 20 186/106 93 04/30/16 04:00 97.5 70 18 210/115 95 04/30/16 00:35 96 Nasal Cannula 3.00 04/30/16 00:00 97.2 76 18 163/98 96 04/29/16 20:00 97.9 04/29/16 19:39 90 20 138/84 95 04/29/16 19:30 95 Nasal Cannula 3.00 04/29/16 19:16 97 Nasal Cannula 3.00 04/29/16 15:59 98.7 76 20 110/79 96 CBC/BMP: 04/26/16 1055 04/26/16 1055 Physical Exam General General Appearance: Well Developed, No Acute Distress, Comfortable Eyes Eye Exam: Pupils Equal, Pupils Reactive Ears & Nose Ears & Nose Exam: Nasal Mucosa [place] Throat Throat Exam: Oral Mucosa [place] & Moist Neck Neck Exam: Neck Supple, Trachea Midline Pulmonary Resp Exam: Rhonchi, Diminished Breath Sounds Resp Remarks wheeze Cardiology CV Exam: Regular Gastrointestinal/Abdomen GI Exam: Soft, Non-Tender, Bowel Sounds Present, Non-Distended Musculoskeletal MS Exam: Joints Intact Integumentary Skin Exam: Warm, Dry Extremeties Extremities Exam: No Edema, Pedal Pulses Palpable Neurologic Neuro Exam: Alert, Awake, Oriented, Speech Clear, Moving All Extremities, No Focal Deficits Psychiatric Psych Exam: Appropriate Responses VTE Prophylaxis VTE Remarks Xarelto PUD Prophylasis PUD Prophylaxis: Protonix Assessment/Plan Problem List: (1) Dyspnea (2) Hypoxia (3) Bronchitis (4) Hx of deep venous thrombosis (5) Hx pulmonary embolism (6) Fibromyalgia (7) Migraine Assessment/Plan continue with Duonebs, O2 therapy, IV steroids to 60 mg IV q 6-continue for today, will start weaning off tomorrow continue Tessalon will add Mucinex appreciate pulm input CTA neg. PE poss. reactive airway disease continue antibiotics continue Xarelto PPI for PUD prophylaxis Migraines initially, none now, continue Imitrex PRN BP uncontrolled, continue BB, add Clonidine auditory hallucinations, ? steroids, none now. Slowly improving continue with above tx. D/W RN D/W Dr. Collazo D/W pt. This pt. was seen by myself and Dr. Collazo, this note is written on his behalf. Problem Qualifiers (1) Dyspnea: Qualified Code: R06.00 - Dyspnea, unspecified type (2) Migraine: Qualified Code: G43.909 - Migraine without status migrainosus, not intractable , unspecified migraine type Ifrah Salazar Apr 30, 2016 12:08
--- NOTE | 2016-04-30 13:11 | EKG ---
Date Performed: 04/29/2016 Time Performed: 19:42:20 PTAGE: 76 years EKG: Sinus rhythm NORMAL ECG Compared to prior tracing no significant change PREVIOUS TRACING : 04/26/2016 10.31 DOCTOR: Mark Shirley Interpretating Date/Time 04/30/2016 13:09:20
[2016-04-30] MEDS: ASPIRIN 325 MG TAB PO PRN (16:12)
[2016-04-30] MEDS: cefTRIAXone INJ 1,000 MG in SODIUM CHLORIDE 0.9% INJ 100 ML IV SCH (16:18)
[2016-04-30] MEDS ORDERED: ONDANSETRON HCL 4 MG/2 ML VIAL IV PUSH PRN (18:30)
[2016-04-30] MEDS ORDERED: DIATRIZOATE MEGLUM/DIATRIZOATE SOD 9 ML CUP PO ONE (19:00)
--- NOTE | 2016-04-30 19:47 | RADRPT ---
EXAM DATE/TIME: 04/30/2016 19:21 [facility] COMPARISON: No previous studies available for comparison. INDICATIONS : Abdomen pain, burning MEDICAL HISTORY : None. SURGICAL HISTORY : None. ENCOUNTER: Initial ACUITY: 1 day PAIN SCORE: 10/10 LOCATION: Right upper quadrant FINDINGS: Supine and upright views of the abdomen were performed. The abdominal bowel gas pattern is normal. No air fluid levels are seen. No abnormal masses, calcifications, or organomegaly is seen. The visu alized lower lungs are clear. No evidence of free intraperitoneal gas. The osseous structures are u nremarkable. CONCLUSION: No dilated loops of small or large bowel. Davon Donovan MD on April 30, 2016 at 19:45 Board Certified Radiologist. This report was verified electronically.
[2016-04-30] MEDS ORDERED: IOHEXOL 350 MG/ML 10 ML VIAL (for RAD DIAG) IV ONE (22:18)
[2016-04-30] MEDS: PANTOPRAZOLE SODIUM 40 MG VIAL IV PUSH SCH (22:51)
--- NOTE | 2016-04-30 22:57 | RADRPT ---
EXAM DATE/TIME: 04/30/2016 22:14 This report includes an Addendum and supersedes previous reports for this exam. [facility] COMPARISON: CT ABDOMEN & PELVIS W CONTRAST, October 31, 2009, 12:05. INDICATIONS : Right sided abdominal pain. IV CONTRAST: 95 cc Omnipaque 350 (iohexol) IV ORAL CONTRAST: Prescribed oral contrast ingested. RADIATION DOSE: 20.83 CTDIvol (mGy) MEDICAL HISTORY : Cardiovascular disease. Hypertension. Gastroesophageal reflux disease. SURGICAL HISTORY : Hysterectomy. ENCOUNTER: Initial ACUITY: 1 day PAIN SCALE: 7/10 LOCATION: Right abdomen TECHNIQUE: Volumetric scanning of the abdomen and pelvis was performed. Using automated exposure control and ad justment of the mA and/or kV according to patient size, radiation dose was kept as low as reasonably achievable to obtain optimal diagnostic quality images. FINDINGS: LOWER LUNGS: The visualized lower lungs are clear. LIVER: Homogeneous density without lesion. Stable cyst adjacent to the falciform ligament. There is no dil ation of the biliary tree. No calcified gallstones. SPLEEN: Normal size without lesion. Scattered granulomatous calcifications stable. PANCREAS: Within normal limits. KIDNEYS: Normal in size and shape. There is no mass, stone or hydronephrosis. Large cyst lower pole measures 6.7 cm, larger than on prior CT scan in 2009. Small cortical cyst lower pole of the right side is a lso slightly larger, measuring 9 mm. ADRENAL GLANDS: Within normal limits. VASCULAR: There is no aortic aneurysm. BOWEL/MESENTERY: No dilated loops of small or large bowel. Oral contrast passes through to the mid transverse colon. Some scattered diverticula in the sigmoid colon without evidence of diverticulitis. ABDOMINAL WALL: Within normal limits. RETROPERITONEUM: There is no lymphadenopathy. BLADDER: No wall thickening or mass. REPRODUCTIVE: Within normal limits. INGUINAL: There is no lymphadenopathy or hernia. MUSCULOSKELETAL: Advanced degenerative changes of the lower lumbar spine, stable. CONCLUSION: Scattered diverticula in the sigmoid colon without radiographic evidence of diverticulitis. Hepatic and renal cysts. Davon Donovan MD on April 30, 2016 at 22:51 Board Certified Radiologist. This report was verified electronically. ADDENDUM: Review of the examination reveals the right abdominal rectus muscle in the upper to mid abdomen is th ickened with inflammatory change the subcutaneous fat which have appearance most likely representing a hematoma questionable history of prior trauma or spontaneous Gasper Flores MD on May 01, 2016 at 17:06 Board Certified Radiologist. This report was verified electronically.
[2016-05-01] VITALS (7 sets, daily range): BP systolic 121–173; BP diastolic 75–95; PULSE 67–85; RESP 17–22; TEMP 96.6–98.2; O2SAT 94–98
[2016-05-01] MEDS: methylPREDNISolone SOD SUCC 125 MG/2 ML VIAL IV SCH ×3 (02:52→23:48)
[2016-05-01] MEDS: guaiFENesin/DEXTROMETHORPHAN 200 MG/20 MG/10 ML CUP PO SCH ×4 (03:02→21:51)
[2016-05-01] MEDS: cloNIDine HCL 0.1 MG TAB PO PRN ×2 (04:44→23:47)
[2016-05-01] MEDS: guaiFENesin E.R. 600 MG TAB PO SCH ×2 (09:00→21:48)
--- NOTE | 2016-05-01 09:40 | HHI.PR ---
Subjective Subjective Remarks Wheezing and cough improved Less SOB with activity ambulating in room no fever last night, she had sudden onset of RUQ pain, "burning like", feels that skin is pulled apart no N/V had similar pain 1 year ago, went away on its own hx of IBS, has chronic diarrhea, but feels she has more now, not watery eating well Sees Dr. Ospina, last colonoscopy 2-3 years ago. went for abd. xray and CT abd. last night, wants to know results Review of Systems Constitutional Constitutional Remarks 12 point ROS completed, negative except as noted above Vitals/Results Intake & Output 04/30/16 04/30/16 05/01/16 15:00 23:00 07:00 Intake Total 780 ml 1140 ml 480 ml Output Total 1000 ml Balance 780 ml 140 ml 480 ml Intake Oral 780 ml 1140 ml 480 ml Output Urine Total 1000 ml # Voids 3 2 2 # Bowel Movements 1 1 Vital Signs Vital Signs Date Time Temp Pulse Resp B/P Pulse Ox O2 Delivery O2 Flow Rate FiO2 05/01/16 08:00 97.7 84 22 155/95 96 05/01/16 06:04 Nasal Cannula 3.00 05/01/16 04:00 97.8 67 20 173/86 95 05/01/16 00:00 96.6 73 19 145/90 94 04/30/16 22:50 94 Nasal Cannula 3.00 04/30/16 20:00 95 Nasal Cannula 3.00 04/30/16 20:00 96.9 74 20 179/59 95 04/30/16 18:08 96.7 78 20 201/112 95 04/30/16 17:15 98 Nasal Cannula 3.00 04/30/16 15:30 97.7 78 20 157/99 97 04/30/16 11:30 97.3 79 20 162/86 96 Imaging Remarks Last Impressions Abdomen/Pelvis CT 04/30/16 0000 Signed Impressions: Service Date/Time: Saturday, April 30, 2016 22:14 - CONCLUSION: Scattered diverticula in the sigmoid colon without radiographic evidence of diverticulitis. Hepatic and renal cysts. Davon Donovan MD Abdomen X-Ray 04/30/16 0000 Signed Impressions: Service Date/Time: Saturday, April 30, 2016 19:21 - CONCLUSION: No dilated loops of small or large bowel. Davon Donovan MD CT Angiography 04/26/16 1212 Signed Impressions: Service Date/Time: Tuesday, April 26, 2016 13:11 - CONCLUSION: I see no evidence for central pulmonary emboli. Eric Suarez MD FACR Chest X-Ray 04/26/16 1036 Signed Impressions: Service Date/Time: Tuesday, April 26, 2016 10:46 - CONCLUSION: No definite acute disease Kayden Rodriguez MD Physical Exam General General Appearance: Well Developed, No Acute Distress, Comfortable Eyes Eye Exam: Pupils Equal, Pupils Reactive Ears & Nose Ears & Nose Exam: Nasal Mucosa [place] Throat Throat Exam: Oral Mucosa [place] & Moist Neck Neck Exam: Neck Supple, Trachea Midline Pulmonary Resp Exam: Rhonchi, Diminished Breath Sounds Resp Remarks wheeze Cardiology CV Exam: Regular Gastrointestinal/Abdomen GI Exam: Soft, Bowel Sounds Present, Non-Distended GI Remarks RUQ tender to minimal touch, no rash noted. Musculoskeletal MS Exam: Joints Intact Integumentary Skin Exam: Warm, Dry Extremeties Extremities Exam: No Edema, Pedal Pulses Palpable Neurologic Neuro Exam: Alert, Awake, Oriented, Speech Clear, Moving All Extremities, No Focal Deficits Psychiatric Psych Exam: Appropriate Responses VTE Prophylaxis VTE Remarks Xarelto PUD Prophylasis PUD Prophylaxis: Protonix Assessment/Plan Problem List: (1) Dyspnea (2) Hypoxia (3) Bronchitis (4) Hx of deep venous thrombosis (5) Hx pulmonary embolism (6) Fibromyalgia (7) Migraine Assessment/Plan continue with Duonebs, O2 therapy, Dec. IV steroids continue Tessalon/ Mucinex appreciate pulm input CTA neg. PE poss. reactive airway disease continue antibiotics continue Xarelto PPI for PUD prophylaxis Migraines initially, none now, continue Imitrex PRN BP better, continue BB and Clonidine PRN RUQ pain, hx of IBS, inc stools Abd xray and CT abd done, results noted-no obstruction, diverticulosis Check stools for cdiff may need GI work up, sees Dr. Ospina. unclear as to etiology for pain, ? neuropathy, minimally tender. No acute abdomen, no other symptoms, taking PO well Pt. has multiple allergies Continue to monitor Labs in am Not ready for discharge. D/W RN D/W Dr. Collazo D/W pt. This pt. was seen by myself and Dr. Collazo, this note is written on his behalf. Problem Qualifiers (1) Dyspnea: Qualified Code: R06.00 - Dyspnea, unspecified type (2) Migraine: Qualified Code: G43.909 - Migraine without status migrainosus, not intractable , unspecified migraine type Ifrah Salazar May 01, 2016 09:40
[2016-05-01] MEDS: CITALOPRAM HYDROBROMIDE 20 MG TAB PO SCH ×2 (10:41→21:48)
[2016-05-01] MEDS: PANTOPRAZOLE SODIUM 40 MG VIAL IV PUSH SCH ×2 (10:42→21:50)
[2016-05-01] MEDS: ATENOLOL 50 MG TAB PO SCH ×2 (10:42→21:48)
[2016-05-01] MEDS: RIVAROXABAN 20 MG TAB PO SCH (10:42)
--- NOTE | 2016-05-01 16:15 | HHI.PR ---
Subjective Remarks 76 YOWF with DVT,PE, persistant cough minimal sp No fever mild wheezing Cough little better, but still has distress due to persistant cough Objective Vital Signs Vital Signs Date Time Temp Pulse Resp B/P Pulse Ox O2 Delivery O2 Flow Rate FiO2 05/01/16 12:00 98.2 85 18 143/86 96 05/01/16 10:38 Nasal Cannula 3.00 Humidified 05/01/16 08:00 97.7 84 22 155/95 96 05/01/16 06:04 Nasal Cannula 3.00 05/01/16 04:00 97.8 67 20 173/86 95 05/01/16 00:00 96.6 73 19 145/90 94 04/30/16 22:50 94 Nasal Cannula 3.00 04/30/16 20:00 95 Nasal Cannula 3.00 04/30/16 20:00 96.9 74 20 179/59 95 04/30/16 18:08 96.7 78 20 201/112 95 04/30/16 17:15 98 Nasal Cannula 3.00 I/O 04/30/16 04/30/16 04/30/16 05/01/16 05/01/16 05/01/16 07:00 15:00 23:00 07:00 15:00 23:00 Intake Total 240 ml 780 ml 1140 ml 480 ml Output Total 1000 ml Balance 240 ml 780 ml 140 ml 480 ml Intake Oral 240 ml 780 ml 1140 ml 480 ml Output Urine Total 1000 ml # Voids 1 3 2 2 1 # Bowel Movements 1 1 1 Objective Remarks GENERAL: WBWN WF with cough SKIN: Warm and dry. HEAD: Normocephalic. EYES: No scleral icterus. No injection or drainage. NECK: Supple, trachea midline. No JVD or lymphadenopathy. CARDIOVASCULAR: Regular rate and rhythm without murmurs, gallops, or rubs. RESPIRATORY: Breath sounds equal bilaterally. No accessory muscle use. Harsh BS, mild wheezing GASTROINTESTINAL: Abdomen soft, non-tender, nondistended. MUSCULOSKELETAL: No cyanosis, or edema. BACK: Nontender without obvious deformity. No CVA tenderness. A/P Assessment and Plan Ac Bronchitis RAD DVT PE HTN Anxiety PLAN: IV Solumedrol Aerosol nebs Robitussin DM Tessalon 200 mg tid Throat Lozenges Lee Page MD May 01, 2016 16:15
[2016-05-01] MEDS: cefTRIAXone INJ 1,000 MG in SODIUM CHLORIDE 0.9% INJ 100 ML IV SCH (17:38)
--- NOTE | 2016-05-01 19:39 | PD.CONS ---
HPI History of Present Illness This is a 76 year old female who was admitted a few days ago for bronchitis and was being treated for that suddenly she developed right sided abdominal pain yesterday and this is worsened somewhat over the day she was comfortable in bed when this all occurred she denies any nausea or vomiting denies any constipation but has chronic diarrhea as part of her irritable bowel syndrome for which she takes Imodium and this usually helps to control her diarrhea she denies any mucus or blood denies any fever chills denies any change in appetite or weight loss her last colonoscopy was with Dr. Ospina about 3 years ago otherwise she seems to be doing well at this point and looking forward to going home [facility] Past Medical History 1. History of pulmonary embolism 2. DVT in the left leg and DVT in the right arm 3. Hyperlipidemia 4. Fibromyalgia 5. Hysterectomy 6. Tonsillectomy 7. Cataract surgery Coded Allergies: Codeine (Verified Allergy, Mild, EXCITABLE, 10/31/09) Erythromycins (Verified Allergy, Mild, SORES IN MOUTH, HIVES, 10/31/09) Latex (Verified Allergy, Mild, RASH, 10/31/09) Morphine (Verified Allergy, Mild, EXCITABLE, 10/31/09) Motrin (Verified Allergy, Mild, SORES IN MOUTH, HIVES, 10/31/09) Naprosyn (Verified Allergy, Mild, SORES IN MOUTH HIVES, 10/31/09) Opiate Agonists (Narcotics) (Verified Allergy, Mild, SORES IN MOUTH, HIVES , 10/31/09) Tylenol (Verified Allergy, Mild, MOUTH SORES, HIVES, 10/31/09) Doxycycline (Verified Allergy, Unknown, 04/26/16) HMG-CoA Reductase Inhibitors (Verified Allergy, Unknown, 04/26/16) Lyrica (Verified Allergy, Unknown, 04/26/16) Nitrates (Verified Allergy, Unknown, 04/26/16) Phenergan (Verified Allergy, Unknown, 04/26/16) Tetracycline (Verified Allergy, Unknown, 04/26/16) Topamax (Verified Allergy, Unknown, 04/26/16) Uncoded Allergies: sulfates (Allergy, Unknown, 04/26/16) Medications MEDICATIONS She is currently takin. Dicyclomine 20 mg every other day 2. Tessalon 200 mg three times a day 3. Xarelto 20 mg a day 4. Timolol 50 mg twice a day 5. Citalopram 10 mg twice a day 6. Protonix 20 mg twice a day 7. Solu-Medrol 40 mg q6-hour 8. Rocephin 1 gram a day 9. Albuterol/Atrovent nebulizer treatment 10. Imitrex 6 mg p.r.n. Family History Noncontributory Social History Negative Review of Systems ROS Review of systems Patient denies any headache dizziness blurry vision, denies any chest pain shortness of breath cough fever chills, Denies any palpitations or fatigue denies any polyuria dysuria hematuria, denies any numbness tingling or weakness, denies any skin rash pruritus or jaundice, denies any easy bruising or bleeding tendency, denies any recent change in mood GI Exam Vitals I&O Vital Signs Date Time Temp Pulse Resp B/P Pulse Ox O2 Delivery O2 Flow Rate FiO2 05/01/16 16:00 97.0 71 18 121/77 98 05/01/16 12:00 98.2 85 18 143/86 96 05/01/16 10:38 Nasal Cannula 3.00 Humidified 05/01/16 08:00 97.7 84 22 155/95 96 05/01/16 06:04 Nasal Cannula 3.00 05/01/16 04:00 97.8 67 20 173/86 95 05/01/16 00:00 96.6 73 19 145/90 94 04/30/16 22:50 94 Nasal Cannula 3.00 04/30/16 20:00 95 Nasal Cannula 3.00 04/30/16 20:00 96.9 74 20 179/59 95 I/O 04/30/16 04/30/16 04/30/16 05/01/16 05/01/16 05/01/16 07:00 15:00 23:00 07:00 15:00 23:00 Intake Total 240 ml 780 ml 1140 ml 480 ml 600 ml Output Total 1000 ml Balance 240 ml 780 ml 140 ml 480 ml 600 ml Intake Oral 240 ml 780 ml 1140 ml 480 ml 600 ml Output Urine Total 1000 ml # Voids 1 3 2 2 3 1 # Bowel Movements 1 1 1 Imaging Last Impressions Abdomen/Pelvis CT 04/30/16 0000 Signed Impressions: Service Date/Time: Saturday, April 30, 2016 22:14 - CONCLUSION: Scattered diverticula in the sigmoid colon without radiographic evidence of diverticulitis. Hepatic and renal cysts. Davon Donovan MD ADDENDUM: Review of the examination reveals the right abdominal rectus muscle in the upper to mid abdomen is thickened with inflammatory change the subcutaneous fat which have appearance most likely representing a hematoma questionable history of prior trauma or spontaneous Gaspermirtha Flores MD Abdomen X-Ray 04/30/16 0000 Signed Impressions: Service Date/Time: Saturday, April 30, 2016 19:21 - CONCLUSION: No dilated loops of small or large bowel. Davon Donovan MD CT Angiography 04/26/16 1212 Signed Impressions: Service Date/Time: Tuesday, April 26, 2016 13:11 - CONCLUSION: I see no evidence for central pulmonary emboli. Eric Suarez MD FACR Chest X-Ray 04/26/16 1036 Signed Impressions: Service Date/Time: Tuesday, April 26, 2016 10:46 - CONCLUSION: No definite acute disease Kayden Rodriguez MD Physical Examination HEENT: Pupils round and reactive to light; normocephalic; atraumatic; no jaundice. Throat is clear. NECK: Neck is supple, no JVD, no lymphadenopathy. CHEST: Chest is clear to auscultation and percussion. CARDIAC: Regular rate and rhythm with no murmur gallop or rubs. ABDOMEN: Soft, obese with significant tenderness over the right abdomen with light palpation with mild bruising suggestive of abdominal wall source; no hepatosplenomegaly; bowel sounds are present in all four quadrants. EXTREMITIES: No clubbing, cyanosis, or edema. SKIN: Normal; no rash; no jaundice. LEACH RUNNER: No focal deficits; alert and oriented times three. Assessment and Plan Plan Right sided abdominal tenderness with known history of diarrhea predominant IBS CT of the abdomen was reviewed with Dr. Flores and it appears that the patient has developed a probable hematoma over the right rectus abdominis which is most likely her source of pain Will defer further action to attending physician but for now caution needs to be taken with anticoagulation and pain control with pain meds With close monitoring of the area GI will sign off Ceasar Larsen MD May 01, 2016 19:39
[2016-05-01 19:45] LABS: C. DIFF EPI 027 PRESUMPTIVE NEGATIVE (NEGATIVE); C. DIFF TOXIN PCR NEGATIVE (NEGATIVE)
[2016-05-02] VITALS (8 sets, daily range): BP systolic 137–173; BP diastolic 79–102; PULSE 69–83; RESP 16–22; TEMP 96.9–98.1; O2SAT 95–97
[2016-05-02] MEDS: guaiFENesin/DEXTROMETHORPHAN 200 MG/20 MG/10 ML CUP PO SCH ×4 (02:00→20:11)
[2016-05-02] MEDS: DICYCLOMINE HCL 20 MG TAB PO SCH (08:27)
[2016-05-02] MEDS: PANTOPRAZOLE SODIUM 40 MG VIAL IV PUSH SCH ×2 (08:27→20:12)
[2016-05-02] MEDS: ATENOLOL 50 MG TAB PO SCH ×2 (08:27→20:12)
[2016-05-02] MEDS: CITALOPRAM HYDROBROMIDE 20 MG TAB PO SCH ×2 (08:27→20:12)
[2016-05-02] MEDS: RIVAROXABAN 20 MG TAB PO SCH (08:28)
[2016-05-02] MEDS: methylPREDNISolone SOD SUCC 125 MG/2 ML VIAL IV SCH ×2 (08:28→16:39)
[2016-05-02] MEDS: SODIUM CHLORIDE 0.9% FLUSH 5 ML FLUSH IVF PRN (08:28)
[2016-05-02] MEDS: guaiFENesin E.R. 600 MG TAB PO SCH ×2 (08:31→20:14)
--- NOTE | 2016-05-02 08:48 | RSPPFT ---
DATE OF PROCEDURE: 04/28/16 COMMENTS: Spirometry shows FVC of 2.0 at 79% of predicted, FEV1 of 1.6 at 81%, FEV1/FVC ratio is normal. Flow is normal at FEF 25-75. There is no response after bronchodilator treatment. Flow volume loop indicates a normal pattern. IMPRESSION: 1. Normal spirometry. 2. No response after bronchodilator treatment.
[2016-05-02] MEDS ORDERED: fentaNYL 25 MCG/HR PATCH TD SCH (09:00)
--- NOTE | 2016-05-02 12:59 | HHI.PR ---
Subjective Interval History Alert, verbal, still complaining of some abdominal pain, right upper quadrant, breathing better, pretty anxious, Review of Systems Constitutional Constitutional Remarks Mild shortness of breath, right upper quadrant abdominal pain, general weakness , 10 systems reviewed otherwise negative Vitals/Results Intake & Output 05/01/16 05/01/16 05/02/16 15:00 23:00 07:00 Intake Total 600 ml 240 ml 240 ml Balance 600 ml 240 ml 240 ml Intake Oral 600 ml 240 ml 240 ml # Voids 3 3 3 # Bowel Movements 1 Vital Signs Vital Signs Date Time Temp Pulse Resp B/P Pulse Ox O2 Delivery O2 Flow Rate FiO2 05/02/16 12:00 97.4 71 22 145/88 96 05/02/16 08:24 97 Nasal Cannula 3.00 05/02/16 08:20 Nasal Cannula 3.00 05/02/16 08:00 97.2 69 20 171/85 97 05/02/16 04:00 97.7 75 17 161/91 96 05/02/16 01:30 157/97 05/02/16 00:00 96.9 71 17 173/102 97 05/01/16 21:00 73 17 143/88 96 05/01/16 20:55 Nasal Cannula 3.00 Humidified 05/01/16 20:00 97.7 80 17 130/75 98 05/01/16 16:00 97.0 71 18 121/77 98 Lab Results Laboratory Tests Test 05/01/16 16:22 Stool C. difficile Toxin (PCR) NEGATIVE Stl C. difficile Toxin PRESUMPTIVE Epiderm 027 NEGATIVE Physical Exam General General Appearance: Well Developed, No Acute Distress, Comfortable, Anxious, Obese Eyes Eye Exam: Pupils Equal, Pupils Reactive Ears & Nose Ears & Nose Exam: Nasal Mucosa [place] Throat Throat Exam: Oral Mucosa [place] & Moist Neck Neck Exam: Neck Supple, Trachea Midline Pulmonary Resp Exam: Rhonchi, Diminished Breath Sounds Cardiology CV Exam: Regular Gastrointestinal/Abdomen GI Exam: Soft, Bowel Sounds Present GI Remarks Mild right upper quadrant tenderness Musculoskeletal MS Exam: Normal Tone Integumentary Skin Exam: Warm, Dry Extremeties Extremities Exam: No Edema, Pedal Pulses Palpable Neurologic Neuro Exam: Alert, Awake, Oriented, Speech Clear, Moving All Extremities, No Focal Deficits Psychiatric Psych Exam: Appropriate Responses PUD Prophylasis PUD Prophylaxis: Protonix Assessment/Plan Problem List: (1) Dyspnea (2) Hypoxia (3) Bronchitis (4) Hx of deep venous thrombosis (5) Hx pulmonary embolism (6) Fibromyalgia (7) Migraine Assessment/Plan Assessment Reactive airway disease Possible COPD Rectus sheath hematoma Irritable bowel syndrome Migraine Hypertension Obesity Deconditioning On anticoagulation for history of DVT/PE Management Pain control continue with Duonebs, O2 therapy tessalon/ Mucinex Pulmonary following continue antibiotics continue Xarelto PPI for PUD prophylaxis Increase Duragesic patch Pt. has multiple allergies Continue to monitor D/W RN D/W pt. Problem Qualifiers (1) Dyspnea: Qualified Code: R06.00 - Dyspnea, unspecified type (2) Migraine: Qualified Code: G43.909 - Migraine without status migrainosus, not intractable , unspecified migraine type Cali Collazo MD May 02, 2016 12:59 Qualified Code: G43.909 - Migraine without status migrainosus, not intractable , unspecified migraine type Cali Collazo MD May 02, 2016 12:59
[2016-05-02 13:02] LABS: HEMATOCRIT 33.7 % (35.0-46.0); MEAN CELL VOLUME 90.5 FL (80.0-100.0); MEAN CORPUSCULAR HEMOGLOBIN 29.4 PG (27.0-34.0); MEAN CORPUSCULAR HGB CONC 32.5 % (32.0-36.0); PLATELET COUNT 191 TH/MM3 (150-450); RED BLOOD COUNT 3.72 MIL/MM3 (4.00-5.30); RED CELL DISTRIBUTION WIDTH 16.8 % (11.6-17.2); REVIEW FLAG FINAL; WHITE BLOOD COUNT 13.2 TH/MM3 (4.0-11.0)
[2016-05-02 13:25] LABS: BICARBONATE 28.7 MEQ/L (21.0-32.0); POTASSIUM 4.6 MEQ/L (3.5-5.1)
[2016-05-02] MEDS: cefTRIAXone INJ 1,000 MG in SODIUM CHLORIDE 0.9% INJ 100 ML IV SCH (17:55)
--- NOTE | 2016-05-02 19:38 | HHI.PR ---
Subjective Remarks 76 YOWF with DVT,PE, persistant cough minimal sp No fever mild wheezing Cough little better, but still has distress due to persistant cough has mild hemoptysis Objective Vital Signs Vital Signs Date Time Temp Pulse Resp B/P Pulse Ox O2 Delivery O2 Flow Rate FiO2 05/02/16 16:00 98.1 83 22 152/79 95 05/02/16 12:00 97.4 71 22 145/88 96 05/02/16 08:24 97 Nasal Cannula 3.00 05/02/16 08:20 Nasal Cannula 3.00 05/02/16 08:00 97.2 69 20 171/85 97 05/02/16 04:00 97.7 75 17 161/91 96 05/02/16 01:30 157/97 05/02/16 00:00 96.9 71 17 173/102 97 05/01/16 21:00 73 17 143/88 96 05/01/16 20:55 Nasal Cannula 3.00 Humidified 05/01/16 20:00 97.7 80 17 130/75 98 I/O 05/01/16 05/01/16 05/01/16 05/02/16 05/02/16 05/02/16 07:00 15:00 23:00 07:00 15:00 23:00 Intake Total 480 ml 600 ml 240 ml 240 ml 1080 ml Balance 480 ml 600 ml 240 ml 240 ml 1080 ml Intake Oral 480 ml 600 ml 240 ml 240 ml 1080 ml # Voids 2 3 3 3 4 # Bowel Movements 1 2 Result Diagram: 05/02/16 1248 05/02/16 1248 Objective Remarks GENERAL: WBWN WF with cough SKIN: Warm and dry. HEAD: Normocephalic. EYES: No scleral icterus. No injection or drainage. NECK: Supple, trachea midline. No JVD or lymphadenopathy. CARDIOVASCULAR: Regular rate and rhythm without murmurs, gallops, or rubs. RESPIRATORY: Breath sounds equal bilaterally. No accessory muscle use. Harsh BS, mild wheezing GASTROINTESTINAL: Abdomen soft, non-tender, nondistended. MUSCULOSKELETAL: No cyanosis, or edema. BACK: Nontender without obvious deformity. No CVA tenderness. A/P Assessment and Plan Ac Bronchitis RAD DVT PE HTN Anxiety PLAN: IV Solumedrol Aerosol nebs Robitussin DM Tessalon 200 mg tid Throat Lozenges monitor hemoptysis Lee Page MD May 02, 2016 19:38
[2016-05-02] MEDS: BENZONATATE 100 MG CAP PO PRN (20:12)
[2016-05-02] MEDS: BENZOCAINE-MENTHOL (SUGAR FREE) 15 MG-3.6 MG LOZENGE BUCCAL PRN (20:16)
[2016-05-03] VITALS (7 sets, daily range): BP systolic 143–198; BP diastolic 82–102; PULSE 65–106; RESP 16–18; TEMP 96.1–98; O2SAT 96–98
[2016-05-03] MEDS: methylPREDNISolone SOD SUCC 125 MG/2 ML VIAL IV SCH ×4 (00:57→23:50)
[2016-05-03] MEDS: guaiFENesin/DEXTROMETHORPHAN 200 MG/20 MG/10 ML CUP PO SCH ×4 (00:57→20:56)
[2016-05-03] MEDS: BENZONATATE 100 MG CAP PO PRN ×2 (04:08→14:19)
[2016-05-03] MEDS: BENZOCAINE-MENTHOL (SUGAR FREE) 15 MG-3.6 MG LOZENGE BUCCAL PRN ×3 (04:09→14:19)
[2016-05-03 04:23] LABS: AUTOMATED NEUTROPHIL # 12.2 TH/MM3 (1.8-7.7); HEMATOCRIT 32.2 % (35.0-46.0); LYMPH % 2.9 % (9.0-44.0); LYMPHOCYTE # 0.4 TH/MM3 (1.0-4.8); MEAN CELL VOLUME 90.4 FL (80.0-100.0); MEAN CORPUSCULAR HEMOGLOBIN 30.2 PG (27.0-34.0); MEAN CORPUSCULAR HGB CONC 33.4 % (32.0-36.0); MONO % 7.1 % (0.0-8.0); PLATELET COUNT 184 TH/MM3 (150-450); RED BLOOD COUNT 3.56 MIL/MM3 (4.00-5.30); RED CELL DISTRIBUTION WIDTH 16.6 % (11.6-17.2); WHITE BLOOD COUNT 13.6 TH/MM3 (4.0-11.0)
[2016-05-03 04:24] LABS: HEMO FLAGS AUTO DIFF
[2016-05-03] MEDS: cloNIDine HCL 0.1 MG TAB PO PRN (04:35)
[2016-05-03 07:17] LABS: BANDS 2 % (0-6); CORRECTED NUCLEATED RBC 1 /100 WBC (0-0); METAMYELOCYTES 1 % (0-1); MYELOCYTES 4 % (0-0); NEUTROPHIL # MANUAL DIFF 12.1 TH/MM3 (1.8-7.7); PLATELET ESTIMATE SMEAR NORMAL (NORMAL); PLATELET MORPHOLOGY NORMAL (NORMAL); POLYS (SEG NEUTROPHILS) 82 % (16-70); SCAN/DIFF FINAL DIFF MANUAL; WBC DIFF SAMPLE 100
[2016-05-03] MEDS: PANTOPRAZOLE SODIUM 40 MG VIAL IV PUSH SCH ×2 (08:04→20:55)
[2016-05-03] MEDS: guaiFENesin E.R. 600 MG TAB PO SCH ×2 (08:04→20:57)
[2016-05-03] MEDS: ATENOLOL 50 MG TAB PO SCH ×2 (08:04→20:57)
[2016-05-03] MEDS: RIVAROXABAN 20 MG TAB PO SCH (08:05)
[2016-05-03] MEDS: CITALOPRAM HYDROBROMIDE 20 MG TAB PO SCH ×2 (08:05→20:56)
--- NOTE | 2016-05-03 12:13 | HHI.PR ---
Subjective Interval History Alert, oriented, complaining of right upper quadrant abdominal pain Review of Systems Constitutional Constitutional Remarks No shortness of breath, right upper quadrant abdominal pain, general weakness, 10 systems reviewed otherwise negative Vitals/Results Intake & Output 05/02/16 05/02/16 05/03/16 15:00 23:00 07:00 Intake Total 1080 ml 480 ml 240 ml Balance 1080 ml 480 ml 240 ml Intake Oral 1080 ml 480 ml 240 ml # Voids 4 2 2 # Bowel Movements 2 Vital Signs Vital Signs Date Time Temp Pulse Resp B/P Pulse Ox O2 Delivery O2 Flow Rate FiO2 05/03/16 11:10 Nasal Cannula 3.00 05/03/16 08:00 96.5 65 18 184/90 97 05/03/16 05:29 152/90 05/03/16 04:15 198/102 05/03/16 04:15 97.1 65 18 98 05/03/16 00:00 98.0 69 18 149/82 96 05/02/16 20:35 Nasal Cannula 3.00 05/02/16 20:00 97.4 73 16 137/82 96 05/02/16 16:00 98.1 83 22 152/79 95 CBC/BMP: 05/03/16 0406 05/02/16 1248 Lab Results Laboratory Tests Test 05/02/16 05/03/16 12:48 04:06 White Blood Count 13.2 TH/MM3 13.6 TH/MM3 Red Blood Count 3.72 MIL/MM3 3.56 MIL/MM3 Hemoglobin 10.9 GM/DL 10.8 GM/DL Hematocrit 33.7 % 32.2 % Mean Corpuscular Volume 90.5 FL 90.4 FL Mean Corpuscular Hemoglobin 29.4 PG 30.2 PG Mean Corpuscular Hemoglobin 32.5 % 33.4 % Concent Red Cell Distribution Width 16.8 % 16.6 % Platelet Count 191 TH/MM3 184 TH/MM3 Mean Platelet Volume 8.2 FL 8.4 FL Sodium Level 137 MEQ/L Potassium Level 4.6 MEQ/L Chloride Level 101 MEQ/L Carbon Dioxide Level 28.7 MEQ/L Anion Gap 7 MEQ/L Blood Urea Nitrogen 26 MG/DL Creatinine 0.75 MG/DL Estimat Glomerular Filtration 75 ML/MIN Rate Random Glucose 124 MG/DL Calcium Level 8.5 MG/DL Neutrophils (%) (Auto) 90.0 % Lymphocytes (%) (Auto) 2.9 % Monocytes (%) (Auto) 7.1 % Eosinophils (%) (Auto) 0.0 % Basophils (%) (Auto) 0.0 % Neutrophils # (Auto) 12.2 TH/MM3 Lymphocytes # (Auto) 0.4 TH/MM3 Monocytes # (Auto) 1.0 TH/MM3 Eosinophils # (Auto) 0.0 TH/MM3 Basophils # (Auto) 0.0 TH/MM3 CBC Comment AUTO DIFF Differential Total Cells 100 Counted Neutrophils % (Manual) 82 % Band Neutrophils % 2 % Lymphocytes % 6 % Monocytes % 5 % Neutrophils # (Manual) 12.1 TH/MM3 Metamyelocytes 1 % Myelocytes 4 % Nucleated Red Blood Cells 1 /100 WBC Differential Comment FINAL DIFF MANUAL Platelet Estimate NORMAL Platelet Morphology Comment NORMAL Physical Exam General General Appearance: Well Developed, No Acute Distress, Comfortable, Anxious, Obese Eyes Eye Exam: Pupils Equal, Pupils Reactive Ears & Nose Ears & Nose Exam: Nasal Mucosa [place] Throat Throat Exam: Oral Mucosa [place] & Moist Neck Neck Exam: Neck Supple, Trachea Midline Pulmonary Resp Exam: Rhonchi, Diminished Breath Sounds Cardiology CV Exam: Regular Gastrointestinal/Abdomen GI Exam: Soft, Bowel Sounds Present GI Remarks Mild right upper quadrant tenderness Musculoskeletal MS Exam: Normal Tone Integumentary Skin Exam: Warm, Dry Extremeties Extremities Exam: No Edema, Pedal Pulses Palpable Neurologic Neuro Exam: Alert, Awake, Oriented, Speech Clear, Moving All Extremities, No Focal Deficits Psychiatric Psych Exam: Appropriate Responses PUD Prophylasis PUD Prophylaxis: Protonix Assessment/Plan Problem List: (1) Dyspnea (2) Hypoxia (3) Bronchitis (4) Hx of deep venous thrombosis (5) Hx pulmonary embolism (6) Fibromyalgia (7) Migraine Assessment/Plan Assessment Reactive airway disease Possible COPD Rectus sheath hematoma Irritable bowel syndrome Migraine Hypertension Obesity Deconditioning Was On anticoagulation for history of DVT/PE Management Pain control continue with Duonebs, O2 therapy tessalon/ Mucinex Pulmonary following continue antibiotics Hematology following, anticoagulation discontinued because of hematomas PPI for PUD prophylaxis Increase Duragesic patch Pt. has multiple allergies Continue to monitor D/W RN D/W pt. Problem Qualifiers (1) Dyspnea: Qualified Code: R06.00 - Dyspnea, unspecified type (2) Migraine: Qualified Code: G43.909 - Migraine without status migrainosus, not intractable , unspecified migraine type Cali Collazo MD May 03, 2016 12:13
[2016-05-03] MEDS: cefTRIAXone INJ 1,000 MG in SODIUM CHLORIDE 0.9% INJ 100 ML IV SCH (17:31)
--- NOTE | 2016-05-03 19:49 | MB ---
cc: SAMARIA HARRINGTON MD, RUBY ANNE E. M.D. DATE OF CONSULTATION: 05/03/2016. REASON FOR CONSULTATION / CHIEF COMPLAINT: Dr. Harrington requested consultation for Mrs. Alva regarding abdominis rectus muscle bleed while on anticoagulant therapy with Xarelto. REFERRING PHYSICIAN: Dr. Samaria Harrington. HISTORY OF PRESENT ILLNESS: Mrs. Alva is a 76-year-old woman well-known patient to Dr. Ochoa. She has a history of multiple deep vein thromboses in the left leg, the right arm and pulmonary emboli diagnosed in 2016. She has been on anticoagulant therapy with Xarelto. She has been compliant with her dose. She presented to the emergency room on April 26, 2016 with symptoms of shortness of breath. Immediately a CT angiogram was performed and it was negative for central pulmonary emboli. She was seen by her disaster recovery manager, Dr. 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 She reports that her coughing started after treatment for her shortness of breath began. She started coughing while she was in the hospital. She was noted to have a decrease in her hemoglobin on May 02, 2016 with her hemoglobin at baseline at 12.9 down to 10.9. Her PT/PTT was normal. Her renal function at baseline was around 53%. CT scan of the abdomen and pelvis was performed to evaluate the abdominal pain and she was found to have a right abdominis rectus muscle thickening due to hematoma. There was no other site of bleeding. The following day her hemoglobin is stable at 10.8. Her Rivaroxaban was last given on May 03, 2016, unfortunately. She complains of a significant amount of pain in her back and her abdomen. She continues to cough violently. She is holding ice packs and pillow. She is breathing better. She is aware of her previous history of venous thromboembolic events. She has a family history of her father also having venous thromboembolic events. Her father had cancer and was under the care of Dr. Ochoa, who follows her now for her anticoagulation. She denies any headaches, no vision changes. No problems with her bowel. Her breathing is improved, but her coughing is still problematic. PAST MEDICAL HISTORY: 1. Fibromyalgia. 2. Hypertension. 3. Irritable bowel syndrome. 4. Hypercholesterolemia. 5. Arthritis. 6. Pulmonary embolism. 7. Right upper extremity deep venous thromboses. PAST SURGICAL HISTORY: 1. Hysterectomy. 2. Tonsillectomy. SOCIAL HISTORY: She lives alone. She denies any tobacco, alcohol or illicit drug use. FAMILY HISTORY: Father had cancer and venous thromboembolic events. ALLERGIES: 1. CODEINE. 2. ERYTHROMYCIN. 3. LATEX. 4. MORPHINE. 5. MOTRIN. 6. NAPROSYN. 7. OPIATES. 8. TYLENOL. 9. DOXYCYCLINE. 10. TETRACYCLINE. CURRENT MEDICATIONS: 1. Solu-Medrol. 2. Protonix. 3. Ondansetron. 4. Catapres. 5. Mucinex. 6. Cepacol. 7. Bentyl. 8. Robitussin DM. 9. Tessalon. 10. Atenolol. 11. Celexa. 12. Rivaroxaban discontinued. PHYSICAL EXAMINATION: VITAL SIGNS: Temperature 96.1, heart rate 101, respiratory rate 16, blood pressure 143/87. GENERAL: Mrs. Alva is a pale-appearing elderly woman who has rotund features. HEAD, EYES, EARS, NOSE, THROAT: Her pupils are round and reactive to light and accommodation. Her oropharynx is clear. NECK: The neck is supple. LUNGS: The lungs are clear. CARDIOVASCULAR: Tachycardia. ABDOMEN: With tenderness in the right abdominal area particularly when she coughs. She has extensive hematoma of the skin tracking from her flank down to her gluteals on both sides. LABORATORY STUDIES: BUN of 26, creatinine 0.75. Hemoglobin 10.8, platelet count 184,000. ASSESSMENT AND PLAN: Mrs. Alva is a 76-year-old woman with multiple medical problems. 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 She is undergoing treatment. 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 For this reason, she is on chronic secondary prophylaxis with Xarelto 20 milligrams once a day. While on Xarelto, she suffered abdominal rectus muscle bleed. She has evidence of a significant bleed with the hematoma subcutaneously throughout her lower abdomen and back. She also has a decrease in hemoglobin since admission. She unfortunately took her last dose of Xarelto this morning. We discussed the intent of Xarelto at this point was not for acute treatment of the deep vein thromboses and pulmonary embolism which occurred six or seven months ago. She is quite stable from that standpoint. Furthermore, the most recent CT angiogram does not show any residual central pulmonary emboli. Her legs are nearly back to normal. Her right arm continues to suffer with weakness. We discussed that stopping her anticoagulation at this point would be reasonable given the clots have been adequately treated for at least six months. Her purpose for continuing anticoagulation is for secondary prophylaxis. In light of the acute bleed, it would be prudent to stop her anticoagulant therapy. We can also try to reverse it given the fact that her symptoms from the abdominal rectus muscle bleed persist and it is quite debilitating, especially when she still needs to cough. We discussed the problem of the absence of a reversal agent for Xarelto. The recommended reversal agent would be activated clotting factors. This carries a small but risk of venous thromboembolic events. I am not even certain that activated clotting factors is available at the hospital. We do have FFP. We discussed the mechanism of action of Xarelto and how it would be difficult to overwhelm the Xarelto with FFP infusion; however, in light of her bleeding, we will attempt to start with 4 units of FFP. I estimate this would be about 5 to 10 units/kg in the hopes of improving her hemostasis and decreasing the progression of her abdominal rectus muscle hematoma. She is encouraged to continue her ice. Mrs. Alva understands the nature of her competing needs. On the one hand, she needs to continue anticoagulant therapy for secondary prophylaxis in light of her history recurrent clots. On the other hand, she is acutely bleeding with symptomatic abdominis rectus muscle bleed and evidence of bleeding in the subcutaneous tissue around her back, flanks and sides. She is reluctant to proceed with inferior vena cava filter placement. In the above setting, I recommend against the inferior vena cava filter placement since there is no absolute contraindication to stopping her anticoagulation until the bleeding has ceased. Her questions were answered to her satisfaction. MD FAWN Benz/CRISPIN /6:53 PM /7:27 PM
[2016-05-03] MEDS ORDERED: PROTHROMBIN COMPLEX IV ONE (20:00)
--- NOTE | 2016-05-03 20:30 | HHI.PR ---
Subjective Remarks 76 YOWF with DVT,PE, persistant cough minimal sp No fever mild wheezing Cough little better, but still has distress due to persistant cough no more hemoptysis Objective Vital Signs Vital Signs Date Time Temp Pulse Resp B/P Pulse Ox O2 Delivery O2 Flow Rate FiO2 05/03/16 20:00 97.4 70 18 189/87 97 05/03/16 16:00 96.1 106 16 143/87 97 05/03/16 12:00 97.3 83 18 143/86 97 05/03/16 11:10 Nasal Cannula 3.00 05/03/16 08:00 96.5 65 18 184/90 97 05/03/16 05:29 152/90 05/03/16 04:15 198/102 05/03/16 04:15 97.1 65 18 98 05/03/16 00:00 98.0 69 18 149/82 96 05/02/16 20:35 Nasal Cannula 3.00 I/O 05/02/16 05/02/16 05/02/16 05/03/16 05/03/16 05/03/16 07:00 15:00 23:00 07:00 15:00 23:00 Intake Total 240 ml 1080 ml 480 ml 240 ml 960 ml Balance 240 ml 1080 ml 480 ml 240 ml 960 ml Intake Oral 240 ml 1080 ml 480 ml 240 ml 960 ml # Voids 3 4 2 2 4 # Bowel Movements 2 2 Result Diagram: 05/03/16 0406 05/02/16 1248 Objective Remarks GENERAL: WBWN WF with cough SKIN: Warm and dry. HEAD: Normocephalic. EYES: No scleral icterus. No injection or drainage. NECK: Supple, trachea midline. No JVD or lymphadenopathy. CARDIOVASCULAR: Regular rate and rhythm without murmurs, gallops, or rubs. RESPIRATORY: Breath sounds equal bilaterally. No accessory muscle use. Harsh BS, mild wheezing GASTROINTESTINAL: Abdomen soft, non-tender, nondistended. MUSCULOSKELETAL: No cyanosis, or edema. BACK: Nontender without obvious deformity. No CVA tenderness. A/P Assessment and Plan Ac Bronchitis RAD DVT PE HTN Anxiety PLAN: IV Solumedrol Aerosol nebs Robitussin DM Tessalon 200 mg tid Throat Lozenges monitor hemoptysis Pain controll Lee Page MD May 03, 2016 20:30
[2016-05-04] VITALS (11 sets, daily range): BP systolic 151–195; BP diastolic 76–97; PULSE 59–81; RESP 16–18; TEMP 96.5–98.4; O2SAT 95–98
[2016-05-04] MEDS: BENZONATATE 100 MG CAP PO PRN ×3 (01:04→16:51)
[2016-05-04] MEDS: guaiFENesin/DEXTROMETHORPHAN 200 MG/20 MG/10 ML CUP PO SCH ×4 (01:04→20:49)
[2016-05-04] MEDS: cloNIDine HCL 0.1 MG TAB PO PRN ×2 (05:05→14:50)
[2016-05-04] MEDS ORDERED: diphenhydrAMINE HCL 25 MG CAP PO PRN (06:00)
[2016-05-04] MEDS ORDERED: SODIUM CHLOR 0.9% 250 ML INJ 250 ML IV ONE (06:00)
[2016-05-04 07:55] LABS: AUTOMATED NEUTROPHIL # 14.1 TH/MM3 (1.8-7.7); BASOPHIL % 0.1 % (0.0-2.0); HEMATOCRIT 29.8 % (35.0-46.0); LYMPH % 2.1 % (9.0-44.0); LYMPHOCYTE # 0.3 TH/MM3 (1.0-4.8); MEAN CORPUSCULAR HEMOGLOBIN 30.4 PG (27.0-34.0); MEAN CORPUSCULAR HGB CONC 33.4 % (32.0-36.0); MONO % 5.4 % (0.0-8.0); NEUT % 92.4 % (16.0-70.0); PLATELET COUNT 170 TH/MM3 (150-450); RED BLOOD COUNT 3.28 MIL/MM3 (4.00-5.30); RED CELL DISTRIBUTION WIDTH 16.6 % (11.6-17.2); WHITE BLOOD COUNT 15.3 TH/MM3 (4.0-11.0)
[2016-05-04 07:59] LABS: HEMO FLAGS AUTO DIFF
[2016-05-04 08:16] LABS: APTT (PATIENT) 22.9 SEC (24.3-30.1); PROTHROMBIN TIME - PATIENT 11.5 SEC (9.8-11.6)
[2016-05-04] MEDS ORDERED: FENTANYL BUCCAL ONE (08:45)
[2016-05-04 08:49] LABS: BANDS 14 % (0-6); CORRECTED NUCLEATED RBC 1 /100 WBC (0-0); METAMYELOCYTES 5 % (0-1); MYELOCYTES 7 % (0-0); NEUTROPHIL # MANUAL DIFF 13.9 TH/MM3 (1.8-7.7); POLYS (SEG NEUTROPHILS) 65 % (16-70); WBC DIFF SAMPLE 100
[2016-05-04 08:50] LABS: PLATELET ESTIMATE SMEAR NORMAL (NORMAL); PLATELET MORPHOLOGY NORMAL (NORMAL); SCAN/DIFF FINAL DIFF MANUAL
[2016-05-04] MEDS: guaiFENesin E.R. 600 MG TAB PO SCH ×2 (08:55→20:49)
[2016-05-04] MEDS: DICYCLOMINE HCL 20 MG TAB PO SCH (08:55)
[2016-05-04] MEDS: BENZOCAINE-MENTHOL (SUGAR FREE) 15 MG-3.6 MG LOZENGE BUCCAL PRN ×3 (08:55→20:57)
[2016-05-04] MEDS: CITALOPRAM HYDROBROMIDE 20 MG TAB PO SCH ×2 (08:55→20:49)
[2016-05-04] MEDS: ATENOLOL 50 MG TAB PO SCH ×2 (08:55→20:49)
[2016-05-04] MEDS: PANTOPRAZOLE SODIUM 40 MG VIAL IV PUSH SCH ×2 (08:56→20:50)
[2016-05-04] MEDS: methylPREDNISolone SOD SUCC 125 MG/2 ML VIAL IV SCH ×3 (08:56→23:05)
--- NOTE | 2016-05-04 09:54 | PD.ONC.PN ---
Subjective Subjective Remarks Afebrile overnight. Pt sitting up in bed eating breakfast. She states she feels overall much better today. She continues to have some abdominal pain but it is improved. She has some SOB with exertion or when she coughs. Objective Data Date Time Temp Pulse Resp B/P Pulse Ox O2 Delivery O2 Flow Rate FiO2 05/04/16 08:40 97.0 64 16 171/81 96 05/04/16 04:30 96.5 69 18 184/93 96 05/04/16 00:00 96.9 62 18 172/88 97 05/03/16 20:55 Nasal Cannula 3.00 05/03/16 20:00 97.4 70 18 189/87 97 05/03/16 16:00 96.1 106 16 143/87 97 05/03/16 12:00 97.3 83 18 143/86 97 05/03/16 11:10 Nasal Cannula 3.00 05/04/16 05/04/16 05/04/16 07:00 15:00 23:00 Intake Total 240 ml Balance 240 ml Result Diagram: 05/04/16 0606 05/02/16 1248 Laboratory Results Laboratory Tests Test 05/04/16 05/04/16 05:45 06:06 Blood Bank Comment White Blood Count 15.3 TH/MM3 Red Blood Count 3.28 MIL/MM3 Hemoglobin 10.0 GM/DL Hematocrit 29.8 % Mean Corpuscular Volume 91.0 FL Mean Corpuscular Hemoglobin 30.4 PG Mean Corpuscular Hemoglobin 33.4 % Concent Red Cell Distribution Width 16.6 % Platelet Count 170 TH/MM3 Mean Platelet Volume 8.7 FL Neutrophils (%) (Auto) 92.4 % Lymphocytes (%) (Auto) 2.1 % Monocytes (%) (Auto) 5.4 % Eosinophils (%) (Auto) 0.0 % Basophils (%) (Auto) 0.1 % Neutrophils # (Auto) 14.1 TH/MM3 Lymphocytes # (Auto) 0.3 TH/MM3 Monocytes # (Auto) 0.8 TH/MM3 Eosinophils # (Auto) 0.0 TH/MM3 Basophils # (Auto) 0.0 TH/MM3 CBC Comment AUTO DIFF Differential Total Cells 100 Counted Neutrophils % (Manual) 65 % Band Neutrophils % 14 % Lymphocytes % 4 % Monocytes % 5 % Neutrophils # (Manual) 13.9 TH/MM3 Metamyelocytes 5 % Myelocytes 7 % Nucleated Red Blood Cells 1 /100 WBC Differential Comment FINAL DIFF MANUAL Platelet Estimate NORMAL Platelet Morphology Comment NORMAL Prothrombin Time 11.5 SEC Prothromb Time International 1.0 RATIO Ratio Activated Partial 22.9 SEC Thromboplast Time Fibrinogen 170 mg/dL Blood Type O POSITIVE Imaging Studies Last Impressions Abdomen/Pelvis CT 04/30/16 0000 Signed Impressions: Service Date/Time: Saturday, April 30, 2016 22:14 - CONCLUSION: Scattered diverticula in the sigmoid colon without radiographic evidence of diverticulitis. Hepatic and renal cysts. Davon Donovan MD ADDENDUM: Review of the examination reveals the right abdominal rectus muscle in the upper to mid abdomen is thickened with inflammatory change the subcutaneous fat which have appearance most likely representing a hematoma questionable history of prior trauma or spontaneous Gaspermirtha Flores MD Abdomen X-Ray 04/30/16 0000 Signed Impressions: Service Date/Time: Saturday, April 30, 2016 19:21 - CONCLUSION: No dilated loops of small or large bowel. Davon Donovan MD CT Angiography 04/26/16 1212 Signed Impressions: Service Date/Time: Tuesday, April 26, 2016 13:11 - CONCLUSION: I see no evidence for central pulmonary emboli. Eric Suarez MD FACR Chest X-Ray 04/26/16 1036 Signed Impressions: Service Date/Time: Tuesday, April 26, 2016 10:46 - CONCLUSION: No definite acute disease Kayden Rodriguez MD Administered Medications Medications (Trade) Dose Ordered Sig/Rachid Route PRN Reason Start Time Stop Time Status Last Admin Dose Admin IV Flush (NS Flush) 2 ml UNSCH PRN IVF FLUSH AFTER USING IV ACCESS 04/26/16 10:45 05/02/16 08:28 Atenolol (Tenormin) 50 mg BID PO 04/26/16 21:00 05/04/16 08:55 Citalopram Hydrobromide 10 mg 10 mg BID PO 04/26/16 21:00 05/04/16 08:55 Ceftriaxone Sodium/Sodium Chloride (Rocephin Inj/NS Inj) 100 ml @ 200 mls/hr Q24H IV 04/26/16 18:00 05/03/16 17:31 Benzonatate (Tessalon) 200 mg TID PRN PO COUGH 04/27/16 10:00 05/04/16 08:59 Guaifenesin/ Dextromethorphan (Robitussin Dm 200-20 Mg/10 ml Liq) 10 ml Q6H PO 04/27/16 20:00 05/04/16 08:55 Benzocaine/Menthol (Cepacol Extra Marialuisa (Sugar Free)) 1 lozenge Q2HR PRN BUCCAL cough 04/28/16 18:15 05/04/16 08:55 Guaifenesin (Mucinex Er) 600 mg BID PO 04/29/16 09:45 05/04/16 08:55 Clonidine (Catapres) 0.1 mg Q6H PRN PO SBP>170, DBP>90 04/30/16 11:00 05/04/16 05:05 Pantoprazole Sodium (Protonix Inj) 40 mg Q12H IV PUSH 04/30/16 20:00 05/04/16 08:56 Ondansetron HCl (Zofran Inj) 4 mg Q6HR PRN IV PUSH nausea 04/30/16 18:30 04/30/16 20:14 Methylprednisolone Sodium Succinate (SoluMEDROL INJ) 60 mg Q8H IV 05/01/16 16:00 05/04/16 08:56 Objective Remarks GENERAL: Overweight elderly female sitting up in bed in no distress. SKIN: Warm and dry. Multiple bruises to BUE HEAD: Normocephalic. EYES: No injection or drainage. NECK: Supple, trachea midline. CARDIOVASCULAR: Regular rate and rhythm without murmurs. RESPIRATORY: Lungs clear. Pt goes into coughing fit with deep breathing. On 3L NC. GASTROINTESTINAL: Abdomen soft, nondistended. Mildly tender to palpation. EXTREMITIES: No edema to BLE. NEUROLOGICAL: No obvious focal deficit. Awake, alert, and oriented x3. Assessment/Plan Problem List: (1) Abdominal hemorrhage Status: Acute Plan: -- Xarelto on hold -- Received one dose of Kcentra last night; this will take approx 24 hours to take effect. She also received 4 units of FFP. -- Monitor CBC. 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 She was placed on Xarelto that time. She came to the ER on 04/26/16 with c/o SOB. A CTA was performed that was negative for PE. She began to have coughing with abdominal pain in the hospital and a CT of the abdomen showed her to have a hemorrhage of her abdominis rectus muscle. Her Xarelto was placed on hold the following day. (2) Hx pulmonary embolism Status: Acute Plan: -- Hold Xarelto -- Likely will not need IVC filter; there is no absolute contraindication to stopping her anticoagulation until the bleeding has ceased. Assessment 76 y/o female with PMH of DVT, PE on Xarelto presents to the ER with acute SOB. Plan 1. Daily CBC 2. Monitor abdominal pain; if worsens we will get a repeat CT scan. 3. No IVC filter at his time 4. Supportive care. Attending Statement The exam, history, and the medical decision-making described in the above note were completed with the assistance of the mid-level provider. I reviewed and agree with the findings presented. I attest that I had a [id number] encounter with the patient on the same day, and personally performed and documented my assessment and findings in the medical record. Pt seen and examined. Xarelto being held. Monitor for bleeding, suspect still bleeding, still has significant burning pain abdomen specially when coughing. Hgb slightly decreased. Continue supportive transfusion for FFP pending in AM. Tolerated Kcentral - alternative to 4factor PCC to temper NOAC effect since no reversal agent available. Pt understands plan and risk and benefits of holding anticoagulant therapy due to acute bleed. Follow clinically. Mariel Mantilla May 04, 2016 09:54 Renetta Do MD May 04, 2016 18:04
--- NOTE | 2016-05-04 17:25 | HHI.PR ---
Subjective Remarks 76 YOWF with DVT,PE, persistant cough minimal sp No fever mild wheezing Cough little better, but still has distress due to persistant cough no more hemoptysis Has rectus abdominus muscle hematoma Objective Vital Signs Vital Signs Date Time Temp Pulse Resp B/P Pulse Ox O2 Delivery O2 Flow Rate FiO2 05/04/16 14:38 97.3 68 18 195/95 96 05/04/16 12:22 97.5 59 16 151/76 98 05/04/16 12:04 97.0 60 16 157/81 98 Manual Cuff/Auscultation 05/04/16 09:44 Nasal Cannula 2.00 05/04/16 08:40 97.0 64 16 171/81 96 05/04/16 04:30 96.5 69 18 184/93 96 05/04/16 00:00 96.9 62 18 172/88 97 05/03/16 20:55 Nasal Cannula 3.00 05/03/16 20:00 97.4 70 18 189/87 97 I/O 05/03/16 05/03/16 05/03/16 05/04/16 05/04/16 05/04/16 07:00 15:00 23:00 07:00 15:00 23:00 Intake Total 240 ml 960 ml 480 ml 240 ml 315 ml Balance 240 ml 960 ml 480 ml 240 ml 315 ml Intake Oral 240 ml 960 ml 480 ml 240 ml FFP 315 ml # Voids 2 4 2 1 # Bowel Movements 2 Result Diagram: 05/04/16 0606 05/02/16 1248 Objective Remarks GENERAL: WBWN WF with cough SKIN: Warm and dry. HEAD: Normocephalic. EYES: No scleral icterus. No injection or drainage. NECK: Supple, trachea midline. No JVD or lymphadenopathy. CARDIOVASCULAR: Regular rate and rhythm without murmurs, gallops, or rubs. RESPIRATORY: Breath sounds equal bilaterally. No accessory muscle use. Harsh BS, mild wheezing GASTROINTESTINAL: Abdomen soft, non-tender, nondistended. MUSCULOSKELETAL: No cyanosis, or edema. BACK: Nontender without obvious deformity. No CVA tenderness. A/P Assessment and Plan Ac Bronchitis RAD DVT PE HTN Anxiety PLAN: IV Solumedrol Aerosol nebs Robitussin DM Tessalon 200 mg tid Throat Lozenges Pain controll Off Xarelto, receiving FFP Lee Page MD May 04, 2016 17:25
[2016-05-04] MEDS: cefTRIAXone INJ 1,000 MG in SODIUM CHLORIDE 0.9% INJ 100 ML IV SCH (18:28)
[2016-05-04] MEDS: diphenhydrAMINE HCL 25 MG CAP PO PRN (21:51)
--- NOTE | 2016-05-04 23:35 | HHI.PR ---
Subjective Interval History Sleepy, arousable, pain better controlled however Fentanyl is making her drowsy Review of Systems Constitutional Constitutional Remarks No shortness of breath, mild right upper quadrant abdominal pain, general weakness, 10 systems reviewed otherwise negative Vitals/Results Intake & Output 05/03/16 05/03/16 05/04/16 15:00 23:00 07:00 Intake Total 960 ml 480 ml 240 ml Balance 960 ml 480 ml 240 ml Intake Oral 960 ml 480 ml 240 ml # Voids 4 2 1 # Bowel Movements 2 Vital Signs Vital Signs Date Time Temp Pulse Resp B/P Pulse Ox O2 Delivery O2 Flow Rate FiO2 05/04/16 23:00 98.1 81 18 156/97 97 05/04/16 22:38 97.9 71 18 163/79 96 05/04/16 20:00 98.4 69 18 177/81 95 05/04/16 17:52 18 05/04/16 16:00 98.4 67 16 180/93 96 05/04/16 14:38 97.3 68 18 195/95 96 05/04/16 12:22 97.5 59 16 151/76 98 05/04/16 12:04 97.0 60 16 157/81 98 Manual Cuff/Auscultation 05/04/16 12:00 97.0 60 16 157/81 98 05/04/16 09:44 Nasal Cannula 2.00 05/04/16 08:40 97.0 64 16 171/81 96 05/04/16 04:30 96.5 69 18 184/93 96 05/04/16 00:00 96.9 62 18 172/88 97 CBC/BMP: 05/04/16 0606 05/02/16 1248 Lab Results Laboratory Tests Test 05/04/16 05/04/16 05:45 06:06 Blood Bank Comment White Blood Count 15.3 TH/MM3 Red Blood Count 3.28 MIL/MM3 Hemoglobin 10.0 GM/DL Hematocrit 29.8 % Mean Corpuscular Volume 91.0 FL Mean Corpuscular Hemoglobin 30.4 PG Mean Corpuscular Hemoglobin 33.4 % Concent Red Cell Distribution Width 16.6 % Platelet Count 170 TH/MM3 Mean Platelet Volume 8.7 FL Neutrophils (%) (Auto) 92.4 % Lymphocytes (%) (Auto) 2.1 % Monocytes (%) (Auto) 5.4 % Eosinophils (%) (Auto) 0.0 % Basophils (%) (Auto) 0.1 % Neutrophils # (Auto) 14.1 TH/MM3 Lymphocytes # (Auto) 0.3 TH/MM3 Monocytes # (Auto) 0.8 TH/MM3 Eosinophils # (Auto) 0.0 TH/MM3 Basophils # (Auto) 0.0 TH/MM3 CBC Comment AUTO DIFF Differential Total Cells 100 Counted Neutrophils % (Manual) 65 % Band Neutrophils % 14 % Lymphocytes % 4 % Monocytes % 5 % Neutrophils # (Manual) 13.9 TH/MM3 Metamyelocytes 5 % Myelocytes 7 % Nucleated Red Blood Cells 1 /100 WBC Differential Comment FINAL DIFF MANUAL Platelet Estimate NORMAL Platelet Morphology Comment NORMAL Prothrombin Time 11.5 SEC Prothromb Time International 1.0 RATIO Ratio Activated Partial 22.9 SEC Thromboplast Time Fibrinogen 170 mg/dL Blood Type O POSITIVE Physical Exam General General Appearance: Well Developed, No Acute Distress, Comfortable, Anxious, Obese Eyes Eye Exam: Pupils Equal, Pupils Reactive Ears & Nose Ears & Nose Exam: Nasal Mucosa Cheval Throat Throat Exam: Oral Mucosa Cheval & Moist Neck Neck Exam: Neck Supple, Trachea Midline Pulmonary Resp Exam: Rhonchi, Diminished Breath Sounds Cardiology CV Exam: Regular Gastrointestinal/Abdomen GI Exam: Soft, Bowel Sounds Present GI Remarks Mild right upper quadrant tenderness Musculoskeletal MS Exam: Normal Tone Integumentary Skin Exam: Warm, Dry Skin Remarks Extensive bruising and ecchymoses around her abdomen Extremeties Extremities Exam: No Edema, Pedal Pulses Palpable Neurologic Neuro Exam: Alert, Awake, Oriented, Speech Clear, Moving All Extremities, No Focal Deficits Psychiatric Psych Exam: Appropriate Responses PUD Prophylasis PUD Prophylaxis: Protonix Assessment/Plan Problem List: (1) Dyspnea (2) Hypoxia (3) Bronchitis (4) Hx of deep venous thrombosis (5) Hx pulmonary embolism (6) Fibromyalgia (7) Migraine Assessment/Plan Assessment Reactive airway disease Possible COPD Rectus sheath hematoma Extensive ecchymoses Irritable bowel syndrome Migraine Hypertension Obesity Deconditioning Was On anticoagulation for history of DVT/PE Management Pain control continue with Duonebs, O2 therapy tessalon/ Mucinex Pulmonary following continue antibiotics Seen by hematology, Xarelto discontinued PPI for PUD prophylaxis Duragesic patch Pt. has multiple allergies Continue to monitor D/W RN D/W pt. Problem Qualifiers (1) Dyspnea: Qualified Code: R06.00 - Dyspnea, unspecified type (2) Migraine: Qualified Code: G43.909 - Migraine without status migrainosus, not intractable , unspecified migraine type Cali Collazo MD May 04, 2016 23:35
[2016-05-05] VITALS (8 sets, daily range): BP systolic 160–190; BP diastolic 80–98; PULSE 62–90; RESP 16–18; TEMP 96.1–98.4; O2SAT 95–96
[2016-05-05] MEDS: cloNIDine HCL 0.1 MG TAB PO PRN (01:49)
[2016-05-05] MEDS: BENZOCAINE-MENTHOL (SUGAR FREE) 15 MG-3.6 MG LOZENGE BUCCAL PRN ×7 (01:51→23:23)
[2016-05-05] MEDS: guaiFENesin/DEXTROMETHORPHAN 200 MG/20 MG/10 ML CUP PO SCH ×4 (01:51→19:36)
[2016-05-05] MEDS: diphenhydrAMINE HCL 25 MG CAP PO PRN (01:52)
[2016-05-05] MEDS: BENZONATATE 100 MG CAP PO PRN ×2 (05:50→15:45)
[2016-05-05 07:47] LABS: AUTOMATED NEUTROPHIL # 16.3 TH/MM3 (1.8-7.7); BASOPHIL % 0.2 % (0.0-2.0); HEMATOCRIT 29.3 % (35.0-46.0); LYMPHOCYTE # 0.3 TH/MM3 (1.0-4.8); MEAN CELL VOLUME 90.9 FL (80.0-100.0); MEAN CORPUSCULAR HEMOGLOBIN 30.2 PG (27.0-34.0); MEAN CORPUSCULAR HGB CONC 33.3 % (32.0-36.0); MONO % 5.4 % (0.0-8.0); NEUT % 92.4 % (16.0-70.0); PLATELET COUNT 169 TH/MM3 (150-450); RED BLOOD COUNT 3.23 MIL/MM3 (4.00-5.30); RED CELL DISTRIBUTION WIDTH 16.6 % (11.6-17.2); WHITE BLOOD COUNT 17.6 TH/MM3 (4.0-11.0)
[2016-05-05 07:48] LABS: HEMO FLAGS AUTO DIFF
[2016-05-05] MEDS ORDERED: REMOVE OLD DURAGESIC (FENTANYL) PATCH TD SCH (09:00)
[2016-05-05] MEDS ORDERED: REMOVE OLD PATCH TD SCH (09:00)
[2016-05-05 09:20] LABS: BANDS 7 % (0-6); METAMYELOCYTES 7 % (0-1); MYELOCYTES 1 % (0-0); NEUTROPHIL # MANUAL DIFF 16.7 TH/MM3 (1.8-7.7); PLATELET ESTIMATE SMEAR NORMAL (NORMAL); PLATELET MORPHOLOGY NORMAL (NORMAL); POLYS (SEG NEUTROPHILS) 80 % (16-70); SCAN/DIFF FINAL DIFF MANUAL; WBC DIFF SAMPLE 100
[2016-05-05 09:21] LABS: ACANTHOCYTES OCC (NORMAL); KERATOCYTES OCC (NORMAL)
[2016-05-05] MEDS: methylPREDNISolone SOD SUCC 125 MG/2 ML VIAL IV SCH ×3 (09:30→23:23)
[2016-05-05] MEDS: PANTOPRAZOLE SODIUM 40 MG VIAL IV PUSH SCH ×2 (09:30→19:36)
[2016-05-05] MEDS: guaiFENesin E.R. 600 MG TAB PO SCH ×2 (09:31→19:36)
[2016-05-05] MEDS: CITALOPRAM HYDROBROMIDE 20 MG TAB PO SCH ×2 (09:31→19:36)
[2016-05-05] MEDS: ATENOLOL 50 MG TAB PO SCH ×2 (09:31→19:36)
[2016-05-05] MEDS: SODIUM CHLORIDE 0.9% FLUSH 5 ML FLUSH IVF PRN (09:32)
--- NOTE | 2016-05-05 13:09 | PD.ONC.PN ---
Subjective Subjective Remarks Afebrile overnight. Patient reports her pain is well controlled with the fentanyl pop. Objective Data Date Time Temp Pulse Resp B/P Pulse Ox O2 Delivery O2 Flow Rate FiO2 05/05/16 08:00 97.1 62 16 180/95 95 05/05/16 06:00 97.8 63 18 168/88 96 05/05/16 04:00 162/90 05/05/16 02:15 98.4 66 18 162/90 96 05/05/16 01:57 98.1 66 18 190/98 96 Automatic Cuff 05/04/16 23:00 98.1 81 18 156/97 97 05/04/16 22:38 97.9 71 18 163/79 96 05/04/16 20:00 98.4 69 18 177/81 95 05/04/16 20:00 Nasal Cannula 3.00 Humidified 05/04/16 17:52 18 05/04/16 16:00 98.4 67 16 180/93 96 05/04/16 14:38 97.3 68 18 195/95 96 05/05/16 05/05/16 05/05/16 07:00 15:00 23:00 Intake Total 1610 ml Balance 1610 ml Result Diagram: 05/05/16 0725 05/02/16 1248 Laboratory Results Laboratory Tests Test 05/05/16 07:25 White Blood Count 17.6 TH/MM3 Red Blood Count 3.23 MIL/MM3 Hemoglobin 9.8 GM/DL Hematocrit 29.3 % Mean Corpuscular Volume 90.9 FL Mean Corpuscular Hemoglobin 30.2 PG Mean Corpuscular Hemoglobin 33.3 % Concent Red Cell Distribution Width 16.6 % Platelet Count 169 TH/MM3 Mean Platelet Volume 8.2 FL Neutrophils (%) (Auto) 92.4 % Lymphocytes (%) (Auto) 2.0 % Monocytes (%) (Auto) 5.4 % Eosinophils (%) (Auto) 0.0 % Basophils (%) (Auto) 0.2 % Neutrophils # (Auto) 16.3 TH/MM3 Lymphocytes # (Auto) 0.3 TH/MM3 Monocytes # (Auto) 1.0 TH/MM3 Eosinophils # (Auto) 0.0 TH/MM3 Basophils # (Auto) 0.0 TH/MM3 CBC Comment AUTO DIFF Differential Total Cells 100 Counted Neutrophils % (Manual) 80 % Band Neutrophils % 7 % Lymphocytes % 3 % Monocytes % 2 % Neutrophils # (Manual) 16.7 TH/MM3 Metamyelocytes 7 % Myelocytes 1 % Differential Comment FINAL DIFF MANUAL Platelet Estimate NORMAL Platelet Morphology Comment NORMAL Acanthocytes OCC Keratocytes OCC Administered Medications Medications (Trade) Dose Ordered Sig/Rachid Route PRN Reason Start Time Stop Time Status Last Admin Dose Admin IV Flush (NS Flush) 2 ml UNSCH PRN IVF FLUSH AFTER USING IV ACCESS 04/26/16 10:45 05/05/16 09:32 Atenolol (Tenormin) 50 mg BID PO 04/26/16 21:00 05/05/16 09:31 Citalopram Hydrobromide 10 mg 10 mg BID PO 04/26/16 21:00 05/05/16 09:31 Ceftriaxone Sodium/Sodium Chloride (Rocephin Inj/NS Inj) 100 ml @ 200 mls/hr Q24H IV 04/26/16 18:00 05/04/16 18:28 Benzonatate (Tessalon) 200 mg TID PRN PO COUGH 04/27/16 10:00 05/05/16 05:50 Guaifenesin/ Dextromethorphan (Robitussin Dm 200-20 Mg/10 ml Liq) 10 ml Q6H PO 04/27/16 20:00 05/05/16 09:30 Benzocaine/Menthol (Cepacol Extra Marialuisa (Sugar Free)) 1 lozenge Q2HR PRN BUCCAL cough 04/28/16 18:15 05/05/16 09:38 Guaifenesin (Mucinex Er) 600 mg BID PO 04/29/16 09:45 05/05/16 09:31 Clonidine (Catapres) 0.1 mg Q6H PRN PO SBP>170, DBP>90 04/30/16 11:00 05/05/16 01:49 Pantoprazole Sodium (Protonix Inj) 40 mg Q12H IV PUSH 04/30/16 20:00 05/05/16 09:30 Ondansetron HCl (Zofran Inj) 4 mg Q6HR PRN IV PUSH nausea 04/30/16 18:30 04/30/16 20:14 Methylprednisolone Sodium Succinate (SoluMEDROL INJ) 60 mg Q8H IV 05/01/16 16:00 05/05/16 09:30 Objective Remarks GENERAL: Elderly female, sitting up in bed in nad. SKIN: Warm and dry. ecchymoses extending along bilateral flanks from rib cage to ASIS HEAD: Normocephalic. EYES: No injection or drainage. NECK: Supple, trachea midline. CARDIOVASCULAR: Regular rate and rhythm RESPIRATORY: diminished at bases. scattered expiratory wheeze GASTROINTESTINAL: Abdomen soft, non-tender, nondistended. EXTREMITIES: No cyanosis NEUROLOGICAL: No obvious focal deficit. Awake, alert, and oriented x3. Assessment/Plan Problem List: (1) Abdominal hemorrhage Status: Acute Plan: -- Xarelto on hold -- Received one dose of Kcentra 05/03/16 and 4 units FFP 05/04-05/05 -- Monitor CBC. 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 She was placed on Xarelto that time. She came to the ER on 04/26/16 with c/o SOB. A CTA was performed that was negative for PE. She began to have coughing with abdominal pain in the hospital and a CT of the abdomen showed her to have a hemorrhage of her abdominis rectus muscle. Her Xarelto was placed on hold the following day. (2) Hx pulmonary embolism Status: Acute Plan: -- Hold Xarelto -- Likely will not need IVC filter; there is no absolute contraindication to stopping her anticoagulation until the bleeding has ceased. Assessment 76 y/o female with PMH of DVT, PE on Xarelto presents to the ER with acute SOB. Hematology following for conflicting needs: h/o emboli vs. acute bleed Plan 1. check repeat H/H this afternoon 2. will get repeat CXR as patient's cough has worsened today and her WBC continues to rise. 3. Monitor abdominal pain; if worsens we will get a repeat CT scan. Attending Statement The exam, history, and the medical decision-making described in the above note were completed with the assistance of the mid-level provider. I reviewed and agree with the findings presented. I attest that I had a [id number] encounter with the patient on the same day, and personally performed and documented my assessment and findings in the medical record. Pt seen and examined. Abdominal pain from hematoma better both from decrease bleed and from judicious use of fentanyl sucker. Pt using Fentanyl sucker sparingly, 2 rubs in the buccal mucosa and waiting 5 minutes is enough to manage her pain. She has been using the same Fentanyl sucker since yesterday. Denies any bowel problem. Denies any overt bleeding. No leg swelling to suggest PE. Noted decrease hgb, pending repeat h/h. s/p 2 days off Xarelto suspect anticoagulant effect waning. Magda Sparks May 05, 2016 13:09 Renetta Do MD May 05, 2016 18:38
[2016-05-05] MEDS: cefTRIAXone INJ 1,000 MG in SODIUM CHLORIDE 0.9% INJ 100 ML IV SCH (15:45)
--- NOTE | 2016-05-05 17:09 | RADRPT ---
EXAM DATE/TIME: 05/05/2016 14:21 [facility] COMPARISON: No previous studies available for comparison. INDICATIONS: short of breath MEDICAL HISTORY: Cardiovascular disease. Hypertension. Gastroesophageal reflux disease SURGICAL HISTORY: None. ENCOUNTER: Subsequent ACUITY: 1 week PAIN SCORE: 0/10 LOCATION: Chest FINDINGS: Moderate hyperinflation is evident. There is no alveolar consolidation, pleural effusion or pneumoth orax. Heart is minimally enlarged. Pulmonary vascularity is normal. Degenerative changes present i n thoracic spine. CONCLUSION: Hyperinflation otherwise negative. Eric Suarez MD FACR on May 05, 2016 at 14:51 Board Certified Radiologist. This report was verified electronically.
[2016-05-05 18:38] LABS: HEMATOCRIT 29.8 % (35.0-46.0); REVIEW FLAG FINAL
--- NOTE | 2016-05-05 20:09 | HHI.PR ---
Subjective Remarks 76 YOWF with DVT,PE, persistant cough minimal sp No fever mild wheezing Cough little better, but still has distress due to persistant cough no more hemoptysis Has rectus abdominus muscle hematoma Pain better Still has cough Objective Vital Signs Vital Signs Date Time Temp Pulse Resp B/P Pulse Ox O2 Delivery O2 Flow Rate FiO2 05/05/16 18:18 Nasal Cannula 3.00 05/05/16 16:00 97.9 70 16 175/80 96 05/05/16 12:00 96.1 73 16 190/95 96 05/05/16 08:00 97.1 62 16 180/95 95 05/05/16 06:00 97.8 63 18 168/88 96 05/05/16 04:00 162/90 05/05/16 02:15 98.4 66 18 162/90 96 05/05/16 01:57 98.1 66 18 190/98 96 Automatic Cuff 05/04/16 23:00 98.1 81 18 156/97 97 05/04/16 22:38 97.9 71 18 163/79 96 I/O 05/04/16 05/04/16 05/04/16 05/05/16 05/05/16 05/05/16 07:00 15:00 23:00 07:00 15:00 23:00 Intake Total 240 ml 795 ml 480 ml 1610 ml 520 ml Balance 240 ml 795 ml 480 ml 1610 ml 520 ml Intake Oral 240 ml 480 ml 480 ml 960 ml 520 ml FFP 315 ml 650 ml # Voids 1 3 3 3 3 # Bowel Movements 2 Result Diagram: 05/05/16 1748 05/02/16 1248 Objective Remarks GENERAL: WBWN WF with cough SKIN: Warm and dry. HEAD: Normocephalic. EYES: No scleral icterus. No injection or drainage. NECK: Supple, trachea midline. No JVD or lymphadenopathy. CARDIOVASCULAR: Regular rate and rhythm without murmurs, gallops, or rubs. RESPIRATORY: Breath sounds equal bilaterally. No accessory muscle use. Harsh BS, mild wheezing GASTROINTESTINAL: Abdomen soft, non-tender, nondistended. MUSCULOSKELETAL: No cyanosis, or edema. BACK: Nontender without obvious deformity. No CVA tenderness. A/P Assessment and Plan Ac Bronchitis RAD DVT PE HTN Anxiety PLAN: IV Solumedrol Aerosol nebs Robitussin DM Tessalon 200 mg tid Throat Lozenges Pain controll Lee Page MD May 05, 2016 20:09
[2016-05-06] VITALS: BP 148/72; PULSE 66; RESP 18; TEMP 97.7; O2SAT 95
[2016-05-06] MEDS: guaiFENesin/DEXTROMETHORPHAN 200 MG/20 MG/10 ML CUP PO SCH ×4 (02:52→20:00)
[2016-05-06] MEDS: BENZOCAINE-MENTHOL (SUGAR FREE) 15 MG-3.6 MG LOZENGE BUCCAL PRN ×6 (02:58→20:59)
[2016-05-06 04:00] VITALS: BP 162/90; PULSE 65; RESP 22; TEMP 97.3; O2SAT 96
[2016-05-06] MEDS: BENZONATATE 100 MG CAP PO PRN ×2 (06:16→12:54)
[2016-05-06 08:00] VITALS: BP 174/84; PULSE 67; RESP 22; TEMP 96.4; O2SAT 95
[2016-05-06] MEDS: PANTOPRAZOLE SODIUM 40 MG VIAL IV PUSH SCH ×2 (08:32→20:43)
[2016-05-06] MEDS: CITALOPRAM HYDROBROMIDE 20 MG TAB PO SCH ×2 (08:40→20:39)
[2016-05-06] MEDS: DICYCLOMINE HCL 20 MG TAB PO SCH (08:40)
[2016-05-06] MEDS: ATENOLOL 50 MG TAB PO SCH ×2 (08:40→20:38)
[2016-05-06] MEDS: guaiFENesin E.R. 600 MG TAB PO SCH ×2 (08:40→20:38)
[2016-05-06] MEDS: methylPREDNISolone SOD SUCC 125 MG/2 ML VIAL IV SCH (08:41)
[2016-05-06] MEDS: SODIUM CHLORIDE 0.9% FLUSH 5 ML FLUSH IVF PRN (08:42)
--- NOTE | 2016-05-06 09:24 | PD.ONC.PN ---
Subjective Subjective Remarks Afebrile overnight. Patient resting comfortably. Abdominal pain well controlled. Cough persistent. Objective Data Date Time Temp Pulse Resp B/P Pulse Ox O2 Delivery O2 Flow Rate FiO2 05/06/16 04:00 97.3 65 22 162/90 96 05/06/16 00:00 97.7 66 18 148/72 95 05/05/16 20:00 97.6 90 18 160/90 95 05/05/16 20:00 Nasal Cannula 3.00 Humidified 05/05/16 18:18 Nasal Cannula 3.00 05/05/16 16:00 97.9 70 16 175/80 96 05/05/16 12:00 96.1 73 16 190/95 96 05/06/16 05/06/16 05/06/16 07:00 15:00 23:00 Intake Total 480 ml Balance 480 ml Result Diagram: 05/05/16 1748 05/02/16 1248 Laboratory Results Laboratory Tests Test 05/05/16 17:48 Hemoglobin 9.7 GM/DL Hematocrit 29.8 % Administered Medications Medications (Trade) Dose Ordered Sig/Rachid Route PRN Reason Start Time Stop Time Status Last Admin Dose Admin IV Flush (NS Flush) 2 ml UNSCH PRN IVF FLUSH AFTER USING IV ACCESS 04/26/16 10:45 05/06/16 08:42 Atenolol (Tenormin) 50 mg BID PO 04/26/16 21:00 05/06/16 08:40 Citalopram Hydrobromide 10 mg 10 mg BID PO 04/26/16 21:00 05/06/16 08:40 Ceftriaxone Sodium/Sodium Chloride (Rocephin Inj/NS Inj) 100 ml @ 200 mls/hr Q24H IV 04/26/16 18:00 05/05/16 15:45 Benzonatate (Tessalon) 200 mg TID PRN PO COUGH 04/27/16 10:00 05/06/16 06:16 Guaifenesin/ Dextromethorphan (Robitussin Dm 200-20 Mg/10 ml Liq) 10 ml Q6H PO 04/27/16 20:00 05/06/16 08:40 Benzocaine/Menthol (Cepacol Extra [place] (Sugar Free)) 1 lozenge Q2HR PRN BUCCAL cough 04/28/16 18:15 05/06/16 06:17 Guaifenesin (Mucinex Er) 600 mg BID PO 04/29/16 09:45 05/06/16 08:40 Clonidine (Catapres) 0.1 mg Q6H PRN PO SBP>170, DBP>90 04/30/16 11:00 05/05/16 01:49 Pantoprazole Sodium (Protonix Inj) 40 mg Q12H IV PUSH 04/30/16 20:00 05/06/16 08:32 Ondansetron HCl (Zofran Inj) 4 mg Q6HR PRN IV PUSH nausea 04/30/16 18:30 04/30/16 20:14 Methylprednisolone Sodium Succinate (SoluMEDROL INJ) 60 mg Q8H IV 05/01/16 16:00 05/06/16 08:41 Objective Remarks GENERAL: Elderly female sitting in bed, resting. SKIN: Warm and dry. ecchymoses along bilateral flanks HEAD: Normocephalic. EYES: No injection or drainage. NECK: Supple, trachea midline. CARDIOVASCULAR: Regular rate and rhythm RESPIRATORY: diminished at bases. scattered rhonchi. GASTROINTESTINAL: Abdomen soft, non-tender, nondistended. EXTREMITIES: No cyanosis NEUROLOGICAL: No obvious focal deficit. Awake, alert, and oriented x3. Assessment/Plan Problem List: (1) Abdominal hemorrhage Status: Acute Plan: -- Xarelto on hold -- Received one dose of Kcentra 05/03/16 and 4 units FFP 05/04-05/05 -- Monitor CBC. 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 She was placed on Xarelto that time. She came to the ER on 04/26/16 with c/o SOB. A CTA was performed that was negative for PE. She began to have coughing with abdominal pain in the hospital and a CT of the abdomen showed her to have a hemorrhage of her abdominis rectus muscle. Her Xarelto was placed on hold the following day. (2) Hx pulmonary embolism Status: Acute Plan: -- Hold Xarelto -- Likely will not need IVC filter; there is no absolute contraindication to stopping her anticoagulation until the bleeding has ceased. Assessment 76 y/o female with PMH of DVT, PE on Xarelto presents to the ER with acute SOB. Hematology following for conflicting needs: h/o emboli vs. acute bleed Plan 1. await CBC 2. will defer to pulmonology and hospitalist for management of patient's cough Attending Statement worried about dropping Hb no obvious bleeding. Xarelto has been d/c H/H stable after TX. Reassure pt, The exam, history, and the medical decision-making described in the above note were completed with the assistance of the mid-level provider. I reviewed and agree with the findings presented. I attest that I had a [id number] encounter with the patient on the same day, and personally performed and documented my assessment and findings in the medical record. Magda Sparks May 06, 2016 09:24 Cori Ferrell MD May 06, 2016 19:32
[2016-05-06 09:53] LABS: AUTOMATED NEUTROPHIL # 17.9 TH/MM3 (1.8-7.7); BASOPHIL % 0.1 % (0.0-2.0); HEMATOCRIT 30.2 % (35.0-46.0); LYMPH % 1.9 % (9.0-44.0); LYMPHOCYTE # 0.4 TH/MM3 (1.0-4.8); MEAN CELL VOLUME 91.3 FL (80.0-100.0); MEAN CORPUSCULAR HEMOGLOBIN 29.9 PG (27.0-34.0); MEAN CORPUSCULAR HGB CONC 32.7 % (32.0-36.0); MONO % 5.3 % (0.0-8.0); NEUT % 92.7 % (16.0-70.0); PLATELET COUNT 165 TH/MM3 (150-450); RED BLOOD COUNT 3.31 MIL/MM3 (4.00-5.30); RED CELL DISTRIBUTION WIDTH 16.4 % (11.6-17.2); WHITE BLOOD COUNT 19.3 TH/MM3 (4.0-11.0)
[2016-05-06 10:06] LABS: HEMO FLAGS AUTO DIFF
[2016-05-06 12:00] VITALS: BP 166/82; PULSE 68; RESP 22; TEMP 98; O2SAT 96
--- NOTE | 2016-05-06 12:32 | HHI.PR ---
Subjective Interval History Alert, verbal, oriented, still coughing at times with some wheezing, abdominal pain improved Review of Systems Constitutional Constitutional Remarks less shortness of breath, mild right upper quadrant abdominal pain, general weakness, 10 systems reviewed otherwise negative Vitals/Results Intake & Output 05/05/16 05/05/16 05/06/16 15:00 23:00 07:00 Intake Total 520 ml 480 ml Balance 520 ml 480 ml Intake Oral 520 ml 480 ml # Voids 3 4 Vital Signs Vital Signs Date Time Temp Pulse Resp B/P Pulse Ox O2 Delivery O2 Flow Rate FiO2 05/06/16 08:00 96.4 67 22 174/84 95 05/06/16 04:00 97.3 65 22 162/90 96 05/06/16 00:00 97.7 66 18 148/72 95 05/05/16 20:00 97.6 90 18 160/90 95 05/05/16 20:00 Nasal Cannula 3.00 Humidified 05/05/16 18:18 Nasal Cannula 3.00 05/05/16 16:00 97.9 70 16 175/80 96 CBC/BMP: 05/06/16 0840 05/02/16 1248 Lab Results Laboratory Tests Test 05/05/16 05/06/16 17:48 08:40 Hemoglobin 9.7 GM/DL 9.9 GM/DL Hematocrit 29.8 % 30.2 % White Blood Count 19.3 TH/MM3 Red Blood Count 3.31 MIL/MM3 Mean Corpuscular Volume 91.3 FL Mean Corpuscular Hemoglobin 29.9 PG Mean Corpuscular Hemoglobin 32.7 % Concent Red Cell Distribution Width 16.4 % Platelet Count 165 TH/MM3 Mean Platelet Volume 8.3 FL Neutrophils (%) (Auto) 92.7 % Lymphocytes (%) (Auto) 1.9 % Monocytes (%) (Auto) 5.3 % Eosinophils (%) (Auto) 0.0 % Basophils (%) (Auto) 0.1 % Neutrophils # (Auto) 17.9 TH/MM3 Lymphocytes # (Auto) 0.4 TH/MM3 Monocytes # (Auto) 1.0 TH/MM3 Eosinophils # (Auto) 0.0 TH/MM3 Basophils # (Auto) 0.0 TH/MM3 CBC Comment AUTO DIFF Physical Exam General General Appearance: Well Developed, No Acute Distress, Comfortable, Anxious, Obese Eyes Eye Exam: Pupils Equal, Pupils Reactive Ears & Nose Ears & Nose Exam: Nasal Mucosa [place] Throat Throat Exam: Oral Mucosa [place] & Moist Neck Neck Exam: Neck Supple, Trachea Midline Pulmonary Resp Exam: Crackles, Rhonchi, Diminished Breath Sounds Cardiology CV Exam: Regular Gastrointestinal/Abdomen GI Exam: Soft, Bowel Sounds Present GI Remarks Mild right upper quadrant tenderness Musculoskeletal MS Exam: Normal Tone Integumentary Skin Exam: Warm, Dry Skin Remarks Extensive bruising and ecchymoses around her abdomen Extremeties Extremities Exam: No Edema, Pedal Pulses Palpable Neurologic Neuro Exam: Alert, Awake, Oriented, Speech Clear, Moving All Extremities, No Focal Deficits Psychiatric Psych Exam: Appropriate Responses PUD Prophylasis PUD Prophylaxis: Protonix Assessment/Plan Problem List: (1) Dyspnea (2) Hypoxia (3) Bronchitis (4) Hx of deep venous thrombosis (5) Hx pulmonary embolism (6) Fibromyalgia (7) Migraine Assessment/Plan Assessment Reactive airway disease Possible COPD Anemia Leukocytosis Rectus sheath hematoma Extensive ecchymoses Irritable bowel syndrome Migraine Hypertension Obesity Deconditioning Was On anticoagulation for history of DVT/PE Management Pain control continue with Duonebs, O2 therapy tessalon/ Mucinex Pulmonary following continue antibiotics Seen by hematology, Xarelto discontinued PPI for PUD prophylaxis Duragesic patch Pt. has multiple allergies Continue to monitor D/W nurse D/W patient Problem Qualifiers (1) Dyspnea: Qualified Code: R06.00 - Dyspnea, unspecified type Cali Collazo MD May 06, 2016 12:32
--- NOTE | 2016-05-06 12:39 | HHI.PR ---
Subjective Interval History Please note, Progress note covering encounter for May 2016 in paper chart, refer to paper chart for details Review of Systems Constitutional Constitutional Remarks No shortness of breath, mild right upper quadrant abdominal pain, general weakness, 10 systems reviewed otherwise negative Vitals/Results Intake & Output 05/05/16 05/05/16 05/06/16 15:00 23:00 07:00 Intake Total 520 ml 480 ml Balance 520 ml 480 ml Intake Oral 520 ml 480 ml # Voids 3 4 Vital Signs Vital Signs Date Time Temp Pulse Resp B/P Pulse Ox O2 Delivery O2 Flow Rate FiO2 05/06/16 08:00 96.4 67 22 174/84 95 05/06/16 04:00 97.3 65 22 162/90 96 05/06/16 00:00 97.7 66 18 148/72 95 05/05/16 20:00 97.6 90 18 160/90 95 05/05/16 20:00 Nasal Cannula 3.00 Humidified 05/05/16 18:18 Nasal Cannula 3.00 05/05/16 16:00 97.9 70 16 175/80 96 CBC/BMP: 05/06/16 0840 05/02/16 1248 Lab Results Laboratory Tests Test 05/05/16 05/06/16 17:48 08:40 Hemoglobin 9.7 GM/DL 9.9 GM/DL Hematocrit 29.8 % 30.2 % White Blood Count 19.3 TH/MM3 Red Blood Count 3.31 MIL/MM3 Mean Corpuscular Volume 91.3 FL Mean Corpuscular Hemoglobin 29.9 PG Mean Corpuscular Hemoglobin 32.7 % Concent Red Cell Distribution Width 16.4 % Platelet Count 165 TH/MM3 Mean Platelet Volume 8.3 FL Neutrophils (%) (Auto) 92.7 % Lymphocytes (%) (Auto) 1.9 % Monocytes (%) (Auto) 5.3 % Eosinophils (%) (Auto) 0.0 % Basophils (%) (Auto) 0.1 % Neutrophils # (Auto) 17.9 TH/MM3 Lymphocytes # (Auto) 0.4 TH/MM3 Monocytes # (Auto) 1.0 TH/MM3 Eosinophils # (Auto) 0.0 TH/MM3 Basophils # (Auto) 0.0 TH/MM3 CBC Comment AUTO DIFF Physical Exam General General Appearance: Well Developed, No Acute Distress, Comfortable, Anxious, Obese Eyes Eye Exam: Pupils Equal, Pupils Reactive Ears & Nose Ears & Nose Exam: Nasal Mucosa [place] Throat Throat Exam: Oral Mucosa [place] & Moist Neck Neck Exam: Neck Supple, Trachea Midline Pulmonary Resp Exam: Rhonchi, Diminished Breath Sounds Cardiology CV Exam: Regular Gastrointestinal/Abdomen GI Exam: Soft, Bowel Sounds Present GI Remarks Mild right upper quadrant tenderness Musculoskeletal MS Exam: Normal Tone Integumentary Skin Exam: Warm, Dry Skin Remarks Extensive bruising and ecchymoses around her abdomen Extremeties Extremities Exam: No Edema, Pedal Pulses Palpable Neurologic Neuro Exam: Alert, Awake, Oriented, Speech Clear, Moving All Extremities, No Focal Deficits Psychiatric Psych Exam: Appropriate Responses PUD Prophylasis PUD Prophylaxis: Protonix Assessment/Plan Problem List: (1) Dyspnea (2) Hypoxia (3) Bronchitis (4) Hx of deep venous thrombosis (5) Hx pulmonary embolism (6) Fibromyalgia (7) Migraine Assessment/Plan Please note, Progress note covering encounter for May 2016 in paper chart, refer to paper chart for details Problem Qualifiers (1) Dyspnea: Qualified Code: R06.00 - Dyspnea, unspecified type (2) Migraine: Qualified Code: G43.909 - Migraine without status migrainosus, not intractable , unspecified migraine type Cali Collazo MD May 06, 2016 12:39
[2016-05-06 14:33] LABS: BANDS 12 % (0-6); METAMYELOCYTES 1 % (0-1); MYELOCYTES 3 % (0-0); NEUTROPHIL # MANUAL DIFF 16.2 TH/MM3 (1.8-7.7); POLYS (SEG NEUTROPHILS) 68 % (16-70); WBC DIFF SAMPLE 100
[2016-05-06 14:34] LABS: OVALOCYTES 1+ (NORMAL)
[2016-05-06 14:35] LABS: PLATELET ESTIMATE SMEAR NORMAL (NORMAL); PLATELET MORPHOLOGY NORMAL (NORMAL); SCAN/DIFF FINAL DIFF MANUAL
[2016-05-06] MEDS ORDERED: FENT25T T-DERMAL (14:45)
[2016-05-06 16:00] VITALS: BP 148/88; PULSE 71; RESP 20; TEMP 97.6; O2SAT 97
--- NOTE | 2016-05-06 17:55 | HHI.PR ---
Subjective Remarks 76 YOWF with DVT,PE, persistant cough minimal sp No fever mild wheezing Has rectus abdominus muscle hematoma Pain better Cough better today Objective Vital Signs Vital Signs Date Time Temp Pulse Resp B/P Pulse Ox O2 Delivery O2 Flow Rate FiO2 05/06/16 12:00 98.0 68 22 166/82 96 05/06/16 08:00 96.4 67 22 174/84 95 05/06/16 04:00 97.3 65 22 162/90 96 05/06/16 00:00 97.7 66 18 148/72 95 05/05/16 20:00 97.6 90 18 160/90 95 05/05/16 20:00 Nasal Cannula 3.00 Humidified 05/05/16 18:18 Nasal Cannula 3.00 I/O 05/05/16 05/05/16 05/05/16 05/06/16 05/06/16 05/06/16 07:00 15:00 23:00 07:00 15:00 23:00 Intake Total 1610 ml 520 ml 480 ml Balance 1610 ml 520 ml 480 ml Intake Oral 960 ml 520 ml 480 ml FFP 650 ml # Voids 3 3 4 Result Diagram: 05/06/16 0840 05/02/16 1248 Objective Remarks GENERAL: WBWN WF with cough SKIN: Warm and dry. HEAD: Normocephalic. EYES: No scleral icterus. No injection or drainage. NECK: Supple, trachea midline. No JVD or lymphadenopathy. CARDIOVASCULAR: Regular rate and rhythm without murmurs, gallops, or rubs. RESPIRATORY: Breath sounds equal bilaterally. No accessory muscle use. Harsh BS, mild wheezing GASTROINTESTINAL: Abdomen soft, non-tender, nondistended. MUSCULOSKELETAL: No cyanosis, or edema. BACK: Nontender without obvious deformity. No CVA tenderness. A/P Assessment and Plan Ac Bronchitis RAD DVT PE HTN Anxiety PLAN: IV Solumedrol Aerosol nebs Robitussin DM Tessalon 200 mg tid Throat Lozenges Pain controll DC plan underway for SNF Lee Page MD May 06, 2016 17:55
[2016-05-06 20:00] VITALS: BP 178/84; PULSE 70; RESP 18; TEMP 98.3
[2016-05-06] MEDS: predniSONE 5 MG TAB PO SCH (20:41)
[2016-05-06] MEDS: CEFUROXIME AXETIL 250 MG TAB PO SCH (22:24)
[2016-05-07] VITALS (8 sets, daily range): BP systolic 158–180; BP diastolic 72–95; PULSE 62–80; RESP 16–20; TEMP 96.6–98.9; O2SAT 95–98
[2016-05-07] MEDS: BENZONATATE 100 MG CAP PO PRN ×4 (00:14→23:41)
[2016-05-07] MEDS: guaiFENesin/DEXTROMETHORPHAN 200 MG/20 MG/10 ML CUP PO SCH ×5 (02:00→23:42)
[2016-05-07] MEDS: PANTOPRAZOLE SODIUM 40 MG VIAL IV PUSH SCH ×2 (07:55→20:43)
[2016-05-07] MEDS: CITALOPRAM HYDROBROMIDE 20 MG TAB PO SCH ×2 (07:56→20:41)
[2016-05-07] MEDS: predniSONE 5 MG TAB PO SCH ×2 (07:56→20:39)
[2016-05-07] MEDS: CEFUROXIME AXETIL 250 MG TAB PO SCH ×2 (07:56→20:40)
[2016-05-07] MEDS: ATENOLOL 50 MG TAB PO SCH ×2 (07:59→20:42)
[2016-05-07] MEDS: BENZOCAINE-MENTHOL (SUGAR FREE) 15 MG-3.6 MG LOZENGE BUCCAL PRN ×5 (07:59→20:38)
[2016-05-07] MEDS: guaiFENesin E.R. 600 MG TAB PO SCH ×2 (07:59→20:41)
[2016-05-07 08:17] LABS: AUTOMATED NEUTROPHIL # 17.9 TH/MM3 (1.8-7.7); HEMATOCRIT 31.2 % (35.0-46.0); LYMPH % 1.7 % (9.0-44.0); LYMPHOCYTE # 0.3 TH/MM3 (1.0-4.8); MEAN CELL VOLUME 90.9 FL (80.0-100.0); MEAN CORPUSCULAR HEMOGLOBIN 29.6 PG (27.0-34.0); MEAN CORPUSCULAR HGB CONC 32.5 % (32.0-36.0); MONO % 6.3 % (0.0-8.0); PLATELET COUNT 177 TH/MM3 (150-450); RED BLOOD COUNT 3.43 MIL/MM3 (4.00-5.30); RED CELL DISTRIBUTION WIDTH 16.6 % (11.6-17.2); WHITE BLOOD COUNT 19.5 TH/MM3 (4.0-11.0)
[2016-05-07 08:48] LABS: HEMO FLAGS AUTO DIFF
[2016-05-07 12:09] LABS: BANDS 15 % (0-6); METAMYELOCYTES 1 % (0-1); MYELOCYTES 5 % (0-0); NEUTROPHIL # MANUAL DIFF 18.1 TH/MM3 (1.8-7.7); PLATELET ESTIMATE SMEAR NORMAL (NORMAL); PLATELET MORPHOLOGY NORMAL (NORMAL); POLYS (SEG NEUTROPHILS) 72 % (16-70); SCAN/DIFF FINAL DIFF MANUAL; WBC DIFF SAMPLE 100
--- NOTE | 2016-05-07 16:22 | HHI.PR ---
Subjective Remarks 76 YOWF with DVT,PE, persistant cough No fever mild wheezing Has rectus abdominus muscle hematoma Pain better Cough better today Overall feels well Objective Vital Signs Vital Signs Date Time Temp Pulse Resp B/P Pulse Ox O2 Delivery O2 Flow Rate FiO2 05/07/16 08:01 97 Nasal Cannula 3.00 Humidified 05/07/16 04:00 96.6 64 19 168/78 98 05/07/16 00:00 98.3 68 16 158/95 96 05/06/16 20:43 97 Nasal Cannula 3.00 Humidified 05/06/16 20:00 98.3 70 18 178/84 I/O 05/06/16 05/06/16 05/06/16 05/07/16 05/07/16 05/07/16 07:00 15:00 23:00 07:00 15:00 23:00 Intake Total 480 ml 1080 ml 480 ml 240 ml Balance 480 ml 1080 ml 480 ml 240 ml Intake Oral 480 ml 1080 ml 480 ml 240 ml # Voids 4 4 2 1 # Bowel Movements 1 0 Result Diagram: 05/07/16 0740 Objective Remarks GENERAL: WBWN WF with cough SKIN: Warm and dry. HEAD: Normocephalic. EYES: No scleral icterus. No injection or drainage. NECK: Supple, trachea midline. No JVD or lymphadenopathy. CARDIOVASCULAR: Regular rate and rhythm without murmurs, gallops, or rubs. RESPIRATORY: Breath sounds equal bilaterally. No accessory muscle use. Harsh BS, mild wheezing GASTROINTESTINAL: Abdomen soft, non-tender, nondistended. MUSCULOSKELETAL: No cyanosis, or edema. BACK: Nontender without obvious deformity. No CVA tenderness. A/P Assessment and Plan Ac Bronchitis RAD DVT PE HTN Anxiety PLAN: Aerosol nebs Robitussin DM Tessalon 200 mg tid Throat Lozenges Pain controll DC plan underway for SNF Dr.Kayyal Page,Lee Hurst MD May 07, 2016 16:22
--- NOTE | 2016-05-07 18:15 | HHI.PR ---
Subjective Subjective Remarks Expiratory wheeze Mild dyspnea Appetite fair No chest pain Review of Systems Constitutional Constitutional: Weakness Constitutional Remarks 10 point ROS done. Positives noted generalized weakness mild SOB, wheezes. Otherwise negative Pulmonary Respiratory: Coughing, Shortness of Breath (exertional) Musculoskeletal MS: Weakness (mild) Psychiatric Psychiatric: Normal Mood Vitals/Results Intake & Output 05/06/16 05/06/16 05/07/16 15:00 23:00 07:00 Intake Total 1080 ml 480 ml 240 ml Balance 1080 ml 480 ml 240 ml Intake Oral 1080 ml 480 ml 240 ml # Voids 4 2 1 # Bowel Movements 1 0 Vital Signs Vital Signs Date Time Temp Pulse Resp B/P Pulse Ox O2 Delivery O2 Flow Rate FiO2 05/07/16 17:55 97 Nasal Cannula 3.00 05/07/16 08:01 97 Nasal Cannula 3.00 Humidified 05/07/16 04:00 96.6 64 19 168/78 98 05/07/16 00:00 98.3 68 16 158/95 96 05/06/16 20:43 97 Nasal Cannula 3.00 Humidified 05/06/16 20:00 98.3 70 18 178/84 CBC/BMP: 05/07/16 0740 Lab Results Laboratory Tests Test 05/07/16 07:40 White Blood Count 19.5 TH/MM3 Red Blood Count 3.43 MIL/MM3 Hemoglobin 10.1 GM/DL Hematocrit 31.2 % Mean Corpuscular Volume 90.9 FL Mean Corpuscular Hemoglobin 29.6 PG Mean Corpuscular Hemoglobin 32.5 % Concent Red Cell Distribution Width 16.6 % Platelet Count 177 TH/MM3 Mean Platelet Volume 8.0 FL Neutrophils (%) (Auto) 92.0 % Lymphocytes (%) (Auto) 1.7 % Monocytes (%) (Auto) 6.3 % Eosinophils (%) (Auto) 0.0 % Basophils (%) (Auto) 0.0 % Neutrophils # (Auto) 17.9 TH/MM3 Lymphocytes # (Auto) 0.3 TH/MM3 Monocytes # (Auto) 1.2 TH/MM3 Eosinophils # (Auto) 0.0 TH/MM3 Basophils # (Auto) 0.0 TH/MM3 CBC Comment AUTO DIFF Differential Total Cells 100 Counted Neutrophils % (Manual) 72 % Band Neutrophils % 15 % Lymphocytes % 4 % Monocytes % 3 % Neutrophils # (Manual) 18.1 TH/MM3 Metamyelocytes 1 % Myelocytes 5 % Differential Comment FINAL DIFF MANUAL Platelet Estimate NORMAL Platelet Morphology Comment NORMAL Imaging Remarks Last Impressions Abdomen/Pelvis CT 04/30/16 0000 Signed Impressions: Service Date/Time: Saturday, April 30, 2016 22:14 - CONCLUSION: Scattered diverticula in the sigmoid colon without radiographic evidence of diverticulitis. Hepatic and renal cysts. Davon Donovan MD ADDENDUM: Review of the examination reveals the right abdominal rectus muscle in the upper to mid abdomen is thickened with inflammatory change the subcutaneous fat which have appearance most likely representing a hematoma questionable history of prior trauma or spontaneous Gaspermirtha Flores MD Abdomen X-Ray 04/30/16 0000 Signed Impressions: Service Date/Time: Saturday, April 30, 2016 19:21 - CONCLUSION: No dilated loops of small or large bowel. Davon Donovan MD CT Angiography 04/26/16 1212 Signed Impressions: Service Date/Time: Tuesday, April 26, 2016 13:11 - CONCLUSION: I see no evidence for central pulmonary emboli. Eric Suarez MD FACR Chest X-Ray 04/26/16 1036 Signed Impressions: Service Date/Time: Tuesday, April 26, 2016 10:46 - CONCLUSION: No definite acute disease Kayden Rodriguez MD Current Medications Active Medications Cefuroxime Axetil (Ceftin) 250 mg Q12HR PO Last administered on 05/07/16 07:56; Admin Dose 250 MG; Start 05/06/16 at 21:00 Prednisone (Deltasone) 20 mg BID PO Last administered on 05/07/16 07:56; Admin Dose 20 MG; Start 05/06/16 at 21:00 Physical Exam General General Appearance: Well Developed, No Acute Distress, Comfortable, Anxious, Obese Eyes Eye Exam: Pupils Equal, Pupils Reactive Ears & Nose Ears & Nose Exam: Nasal Mucosa [place] Throat Throat Exam: Oral Mucosa [place] & Moist Neck Neck Exam: Neck Supple, Trachea Midline Pulmonary Resp Exam: Crackles, Rhonchi, Diminished Breath Sounds Resp Remarks Few expiratory wheezes Cardiology CV Exam: Regular Gastrointestinal/Abdomen GI Exam: Soft, Bowel Sounds Present Musculoskeletal MS Exam: Normal Tone Integumentary Skin Exam: Warm, Dry Extremeties Extremities Exam: No Edema, Pedal Pulses Palpable Neurologic Neuro Exam: Alert, Awake, Oriented, Speech Clear, Moving All Extremities, No Focal Deficits Psychiatric Psych Exam: Appropriate Responses PUD Prophylasis PUD Prophylaxis: Protonix Assessment/Plan Problem List: (1) Dyspnea (2) Hypoxia (3) Bronchitis (4) Hx of deep venous thrombosis (5) Hx pulmonary embolism (6) Fibromyalgia (7) Migraine Assessment/Plan Assessment Reactive airway disease Possible COPD Anemia, controlled 10.1 Leukocytosis Rectus sheath hematoma Extensive ecchymoses Irritable bowel syndrome, controlled Migraine, controlled Hypertension, medical management Obesity, no acute changes Deconditioning, debility Was On anticoagulation for history of DVT/PE Leukocytosis, essentially unchanged, Ceftin, secondary to by mouth steroids Management Pain control continue with Duonebs, at at bedtime O2 therapy tessalon/ Mucinex Pulmonary following continue antibiotics Ceftin, discussed options with Dr. Collazo. Seen by hematology, Omid discontinued PPI for PUD prophylaxis Duragesic patch Pt. has multiple allergies Continue to monitor D/W nurse D/W patient Problem Qualifiers (1) Dyspnea: Qualified Code: R06.00 - Dyspnea, unspecified type Dominga Shelley May 07, 2016 18:15
[2016-05-07] MEDS: RESP: ALBUTEROL 2.5 MG/IPRATROPIUM 0.5 MG NEB (SCH) NEB (21:27)
[2016-05-07] MEDS: cloNIDine HCL 0.1 MG TAB PO PRN (23:49)
[2016-05-08 04:00] VITALS: BP 168/68; PULSE 68; RESP 19; TEMP 97.6; O2SAT 97
[2016-05-08 08:00] VITALS: BP 180/78; PULSE 65; RESP 16; TEMP 96.8; O2SAT 99
[2016-05-08 08:15] VITALS: O2SAT 97
[2016-05-08 09:20] LABS: AUTOMATED NEUTROPHIL # 16.9 TH/MM3 (1.8-7.7); BASOPHIL % 0.2 % (0.0-2.0); EOSINOPHIL % 0.1 % (0.0-4.0); HEMATOCRIT 32.3 % (35.0-46.0); LYMPHOCYTE # 0.4 TH/MM3 (1.0-4.8); MEAN CELL VOLUME 92.1 FL (80.0-100.0); MEAN CORPUSCULAR HEMOGLOBIN 29.6 PG (27.0-34.0); MEAN CORPUSCULAR HGB CONC 32.2 % (32.0-36.0); MONO % 6.2 % (0.0-8.0); NEUT % 91.5 % (16.0-70.0); PLATELET COUNT 168 TH/MM3 (150-450); RED BLOOD COUNT 3.51 MIL/MM3 (4.00-5.30); RED CELL DISTRIBUTION WIDTH 17.1 % (11.6-17.2); WHITE BLOOD COUNT 18.5 TH/MM3 (4.0-11.0)
[2016-05-08 09:21] LABS: HEMO FLAGS AUTO DIFF
[2016-05-08] MEDS: guaiFENesin/DEXTROMETHORPHAN 200 MG/20 MG/10 ML CUP PO SCH ×3 (09:23→19:53)
[2016-05-08] MEDS: PANTOPRAZOLE SODIUM 40 MG VIAL IV PUSH SCH ×2 (09:23→19:53)
[2016-05-08] MEDS: BENZONATATE 100 MG CAP PO PRN (09:23)
[2016-05-08] MEDS: CITALOPRAM HYDROBROMIDE 20 MG TAB PO SCH ×2 (09:23→19:53)
[2016-05-08] MEDS: guaiFENesin E.R. 600 MG TAB PO SCH ×2 (09:24→19:53)
[2016-05-08] MEDS: CEFUROXIME AXETIL 250 MG TAB PO SCH ×2 (09:24→19:53)
[2016-05-08] MEDS: DICYCLOMINE HCL 20 MG TAB PO SCH (09:24)
[2016-05-08] MEDS: BENZOCAINE-MENTHOL (SUGAR FREE) 15 MG-3.6 MG LOZENGE BUCCAL PRN ×4 (09:24→19:53)
[2016-05-08] MEDS: ATENOLOL 50 MG TAB PO SCH ×2 (09:24→19:54)
[2016-05-08] MEDS: predniSONE 5 MG TAB PO SCH ×2 (09:27→19:53)
[2016-05-08 10:00] LABS: BANDS 3 % (0-6); METAMYELOCYTES 3 % (0-1); MYELOCYTES 5 % (0-0); NEUTROPHIL # MANUAL DIFF 17.4 TH/MM3 (1.8-7.7); PLATELET ESTIMATE SMEAR NORMAL (NORMAL); PLATELET MORPHOLOGY NORMAL (NORMAL); POLYS (SEG NEUTROPHILS) 83 % (16-70); WBC DIFF SAMPLE 100
[2016-05-08] MEDS ORDERED: FENTANYL BUCCAL ONE (10:00)
[2016-05-08 10:01] LABS: OVALOCYTES 1+ (NORMAL); SCAN/DIFF FINAL DIFF MANUAL
[2016-05-08] MEDS ORDERED: CEFT250T8 PO (10:32)
[2016-05-08] MEDS ORDERED: BENZ100 PO (10:32)
[2016-05-08] MEDS ORDERED: PRED5TAB PO (10:32)
[2016-05-08] MEDS ORDERED: BENZ1LOZ5 BUCCAL (10:32)
[2016-05-08] MEDS ORDERED: MUCI600T PO (10:32)
--- NOTE | 2016-05-08 10:37 | HHI.PR ---
Subjective Interval History Patient is breathing better Feeling better No nausea vomiting Occasional cough dry in nature Fentanyl pop is helping her a lot she is using responsibly Has a history of migraine use Imitrex need Imitrex for nursing facility Offering no other complaint Review of system for 12 point system otherwise unremarkable Review of Systems Constitutional Constitutional: Weakness Vitals/Results Intake & Output 05/07/16 05/07/16 05/08/16 15:00 23:00 07:00 Intake Total 840 ml 480 ml 480 ml Balance 840 ml 480 ml 480 ml Intake Oral 840 ml 480 ml 480 ml # Voids 5 2 2 # Bowel Movements 2 0 0 Vital Signs Vital Signs Date Time Temp Pulse Resp B/P Pulse Ox O2 Delivery O2 Flow Rate FiO2 05/08/16 08:00 96.8 65 16 180/78 99 05/08/16 04:00 97.6 68 19 168/68 97 05/07/16 23:48 96.7 62 16 180/92 95 05/07/16 22:57 97 Nasal Cannula 3.00 Humidified 05/07/16 20:00 97.0 74 19 168/72 97 05/07/16 17:55 97 Nasal Cannula 3.00 05/07/16 16:00 98.9 72 18 165/86 98 05/07/16 12:00 98.0 80 20 163/86 96 CBC/BMP: 05/08/16 0844 Lab Results Laboratory Tests Test 05/08/16 08:44 White Blood Count 18.5 TH/MM3 Red Blood Count 3.51 MIL/MM3 Hemoglobin 10.4 GM/DL Hematocrit 32.3 % Mean Corpuscular Volume 92.1 FL Mean Corpuscular Hemoglobin 29.6 PG Mean Corpuscular Hemoglobin 32.2 % Concent Red Cell Distribution Width 17.1 % Platelet Count 168 TH/MM3 Mean Platelet Volume 8.0 FL Neutrophils (%) (Auto) 91.5 % Lymphocytes (%) (Auto) 2.0 % Monocytes (%) (Auto) 6.2 % Eosinophils (%) (Auto) 0.1 % Basophils (%) (Auto) 0.2 % Neutrophils # (Auto) 16.9 TH/MM3 Lymphocytes # (Auto) 0.4 TH/MM3 Monocytes # (Auto) 1.2 TH/MM3 Eosinophils # (Auto) 0.0 TH/MM3 Basophils # (Auto) 0.0 TH/MM3 CBC Comment AUTO DIFF Differential Total Cells 100 Counted Neutrophils % (Manual) 83 % Band Neutrophils % 3 % Lymphocytes % 3 % Monocytes % 3 % Neutrophils # (Manual) 17.4 TH/MM3 Metamyelocytes 3 % Myelocytes 5 % Differential Comment FINAL DIFF MANUAL Platelet Estimate NORMAL Platelet Morphology Comment NORMAL Ovalocytes 1+ Physical Exam General General Appearance: Well Developed, No Acute Distress, Comfortable, Anxious, Obese Eyes Eye Exam: Pupils Equal, Pupils Reactive Ears & Nose Ears & Nose Exam: Nasal Mucosa [place] Throat Throat Exam: Oral Mucosa [place] & Moist Neck Neck Exam: Neck Supple, Trachea Midline Pulmonary Resp Exam: Clear Bilaterally, Breath Sounds Equal, No Distress, Diminished Breath Sounds Cardiology CV Exam: Regular Gastrointestinal/Abdomen GI Exam: Soft, Bowel Sounds Present Musculoskeletal MS Exam: Normal Tone Integumentary Skin Exam: Warm, Dry Extremeties Extremities Exam: No Edema, Pedal Pulses Palpable Neurologic Neuro Exam: Alert, Awake, Oriented, Speech Clear, Moving All Extremities, No Focal Deficits Psychiatric Psych Exam: Appropriate Responses PUD Prophylasis PUD Prophylaxis: Protonix Assessment/Plan Problem List: (1) Dyspnea (2) Hypoxia (3) Bronchitis (4) Hx of deep venous thrombosis (5) Hx pulmonary embolism (6) Fibromyalgia (7) Migraine Assessment/Plan Assessment Reactive airway disease Possible COPD Anemia, Leukocytosis Rectus sheath hematoma Extensive ecchymoses Irritable bowel syndrome, controlled Migraine, controlled Hypertension, medical management Obesity, no acute changes Deconditioning, debility Was On anticoagulation for history of DVT/PE Leukocytosis, essentially unchanged, Ceftin, secondary to by mouth steroids Management Pain control with fentanyl lozenges Imitrex for migraine headache on a when necessary basis continue with Duonebs, at at bedtime O2 therapy and when necessary basis tessalon/ Mucinex Pulmonary following appreciate input antibiotics Ceftin Seen by hematology, Xarelto discontinued Appreciate consultants help PPI for PUD prophylaxis Pt. has multiple allergies Meds reviewed Labs and radiological data reviewed Previous notes reviewed Discussed with patient in detail Discussed with case managers about DC planning D/W nurse Plan to discharge to SNF time spent in management and dc planning for this pt is more than 45 min Problem Qualifiers (1) Dyspnea: Qualified Code: R06.00 - Dyspnea, unspecified type Lupe Goss MD May 08, 2016 10:28
--- NOTE | 2016-05-08 10:40 | HHI.DS ---
Discharge Summary Admission Date Apr 27, 2016 at 09:46 Admitting Diagnosis dyspnea, hypoxia, bronchitis (1) Migraine Diagnosis: Principal (2) Dyspnea Diagnosis: Principal (3) Hypoxia Diagnosis: Principal (4) Bronchitis Diagnosis: Principal (5) Hx of deep venous thrombosis Diagnosis: Principal (6) Abdominal hemorrhage Diagnosis: Principal (7) Hx pulmonary embolism Diagnosis: Principal Brief History The patient had a coughing spell which has progressively gotten worse over the past two years. She did cough up a productive yellow sputum. She states that she was coughing so hard she now is having chest pain when coughing. Her chest wall is sore to touch and does appear to be pleuritic in nature. The patient has no known allergies but has been coughing nonproductive off and on for the past two years. She has been seeing her PCP who had her on p.o. prednisone. Patient was diagnosed with bronchitis and admitted with antibiotics and breathing treatments. Patient also has abnormal pain for which workup was started followed patient has a rectus muscle hematoma. Patient was seen by copy clerk. Her Xarelto were taken off. She has a history of DVT and PE. But there is no need for any intervention now. Patient was seen and followed by pulmonary as well. As per pulmonary continue discharge. As patient is overall a stable plan to discharge her back to SNF. For her pain patient is on fentanyl pops. She is using responsibly. And for headache she is on Imitrex on a when necessary basis. CBC/BMP: 05/08/16 0844 Significant Findings Laboratory Tests Test 05/05/16 05/06/16 05/07/16 05/08/16 17:48 08:40 07:40 08:44 Hemoglobin 9.7 GM/DL 9.9 GM/DL 10.1 GM/DL 10.4 GM/DL (11.6-15.3) (11.6-15.3) (11.6-15.3) (11.6-15.3) Hematocrit 29.8 % 30.2 % 31.2 % 32.3 % (35.0-46.0) (35.0-46.0) (35.0-46.0) (35.0-46.0) White Blood Count 19.3 TH/MM3 19.5 TH/MM3 18.5 TH/MM3 (4.0-11.0) (4.0-11.0) (4.0-11.0) Red Blood Count 3.31 MIL/MM3 3.43 MIL/MM3 3.51 MIL/MM3 (4.00-5.30) (4.00-5.30) (4.00-5.30) Neutrophils (%) (Auto) 92.7 % 92.0 % 91.5 % (16.0-70.0) (16.0-70.0) (16.0-70.0) Lymphocytes (%) (Auto) 1.9 % 1.7 % 2.0 % (9.0-44.0) (9.0-44.0) (9.0-44.0) Neutrophils # (Auto) 17.9 TH/MM3 17.9 TH/MM3 16.9 TH/MM3 (1.8-7.7) (1.8-7.7) (1.8-7.7) Lymphocytes # (Auto) 0.4 TH/MM3 0.3 TH/MM3 0.4 TH/MM3 (1.0-4.8) (1.0-4.8) (1.0-4.8) Monocytes # (Auto) 1.0 TH/MM3 1.2 TH/MM3 1.2 TH/MM3 (0-0.9) (0-0.9) (0-0.9) Band Neutrophils % 12 % (0-6) 15 % (0-6) Neutrophils # (Manual) 16.2 TH/MM3 18.1 TH/MM3 17.4 TH/MM3 (1.8-7.7) (1.8-7.7) (1.8-7.7) Myelocytes 3 % (0-0) 5 % (0-0) 5 % (0-0) Ovalocytes 1+ (NORMAL) 1+ (NORMAL) Neutrophils % (Manual) 72 % (16-70) 83 % (16-70) Lymphocytes % 4 % (9-44) 3 % (9-44) Metamyelocytes 3 % (0-1) Pt Condition on Discharge: Good Discharge Disposition: Discharge to SNF Discharge Instructions DIET: Follow Instructions for: Heart Healthy Diet Activities you can perform: Weight Bearing as Denise Follow up Referrals: PCP Follow-up - 2-3 Days Pulmonology - 2 Weeks New Medications: Fentanyl Patch 72 HR (Duragesic Patch 72 HR) 25 Mcg/Hr Patch 25 MCG T-DERMAL Q72H Remove old patch when new one placed. Pain Management #10 Ref 0 PATCH Benzocaine-Menthol Lozenge (Cepacol Sore Throat Extra Lozenge) 15-3.6 Mg Lozg 1 LOZENGE BUCCAL Q2HR PRN cough #2 LOZENGE Benzonatate (Tessalon Perles) 100 Mg Cap 200 MG PO TID PRN COUGH #10 CAP Cefuroxime (Ceftin) 250 Mg Tab 250 MG PO Q12HR infection #10 TAB Guaifenesin ER 12 HR (Mucinex ER 12 HR) 600 Mg Char 600 MG PO BID cough #10 TAB Prednisone (Prednisone) 5 Mg Tab 20 MG PO BID reactive airway disease #10 TAB Continued Medications: Aspirin-Caffeine (Andrew Back & Body) 500-32.5 Mg Tab 1 TAB PO BID TAB Atenolol (Atenolol) 50 Mg Tab 50 MG PO BID Blood Pressure Management #60 Ref 0 TAB Citalopram (Celexa) 20 Mg Tab 10 MG PO BID Control Depression #30 Ref 0 TAB Dicyclomine (Bentyl) 20 Mg Tab 20 MG PO EVERY OTHER DAY Bowel Management Ref 0 TAB Pantoprazole (Pantoprazole) 40 Mg Tab 20 MG PO BID 20 mg by mouth twice a day 5 days 10 mg by mouth twice a day 5 days 5 mg by mouth twice a day 5 days 5 mg by mouth daily indefinitely Reflux # 30 Ref 0 TAB Sumatriptan Inj (Imitrex Inj) 6 Mg/0.5 Ml Inj 6 MG SQ ONCE May repeat dose in 1 hour if needed. PRN MIGRAINE HEADACHE Ref 0 VIAL Discontinued Medications: Prednisone (Prednisone) 5 Mg Tab 5 MG PO DAILY Ref 0 TAB Rivaroxaban (Xarelto) 20 Mg Tab 20 MG PO DAILY Blood Clot Prevention Ref 0 TAB Lupe Goss MD May 08, 2016 10:40
--- NOTE | 2016-05-08 11:49 | PD.ONC.PN ---
Subjective Subjective Remarks Afebrile overnight. patient resting comfortably. She is out of her fentanyl pop and states she needs another as she still has pain in her abdomen at times. Objective Data Date Time Temp Pulse Resp B/P Pulse Ox O2 Delivery O2 Flow Rate FiO2 05/08/16 08:00 96.8 65 16 180/78 99 05/08/16 04:00 97.6 68 19 168/68 97 05/07/16 23:48 96.7 62 16 180/92 95 05/07/16 22:57 97 Nasal Cannula 3.00 Humidified 05/07/16 20:00 97.0 74 19 168/72 97 05/07/16 17:55 97 Nasal Cannula 3.00 05/07/16 16:00 98.9 72 18 165/86 98 05/07/16 12:00 98.0 80 20 163/86 96 Result Diagram: 05/08/16 0844 Laboratory Results Laboratory Tests Test 05/08/16 08:44 White Blood Count 18.5 TH/MM3 Red Blood Count 3.51 MIL/MM3 Hemoglobin 10.4 GM/DL Hematocrit 32.3 % Mean Corpuscular Volume 92.1 FL Mean Corpuscular Hemoglobin 29.6 PG Mean Corpuscular Hemoglobin 32.2 % Concent Red Cell Distribution Width 17.1 % Platelet Count 168 TH/MM3 Mean Platelet Volume 8.0 FL Neutrophils (%) (Auto) 91.5 % Lymphocytes (%) (Auto) 2.0 % Monocytes (%) (Auto) 6.2 % Eosinophils (%) (Auto) 0.1 % Basophils (%) (Auto) 0.2 % Neutrophils # (Auto) 16.9 TH/MM3 Lymphocytes # (Auto) 0.4 TH/MM3 Monocytes # (Auto) 1.2 TH/MM3 Eosinophils # (Auto) 0.0 TH/MM3 Basophils # (Auto) 0.0 TH/MM3 CBC Comment AUTO DIFF Differential Total Cells 100 Counted Neutrophils % (Manual) 83 % Band Neutrophils % 3 % Lymphocytes % 3 % Monocytes % 3 % Neutrophils # (Manual) 17.4 TH/MM3 Metamyelocytes 3 % Myelocytes 5 % Differential Comment FINAL DIFF MANUAL Platelet Estimate NORMAL Platelet Morphology Comment NORMAL Ovalocytes 1+ Administered Medications Medications (Trade) Dose Ordered Sig/Rachid Route PRN Reason Start Time Stop Time Status Last Admin Dose Admin IV Flush (NS Flush) 2 ml UNSCH PRN IVF FLUSH AFTER USING IV ACCESS 04/26/16 10:45 05/06/16 08:42 Atenolol (Tenormin) 50 mg BID PO 04/26/16 21:00 05/08/16 09:24 Citalopram Hydrobromide (CeleXA) 10 mg BID PO 04/26/16 21:00 05/08/16 09:23 Benzonatate (Tessalon) 200 mg TID PRN PO COUGH 04/27/16 10:00 05/08/16 09:23 Guaifenesin/ Dextromethorphan (Robitussin Dm 200-20 Mg/10 ml Liq) 10 ml Q6H PO 04/27/16 20:00 05/08/16 09:23 Benzocaine/Menthol (Cepacol Extra [place] (Sugar Free)) 1 lozenge Q2HR PRN BUCCAL cough 04/28/16 18:15 05/08/16 09:24 Guaifenesin (Mucinex Er) 600 mg BID PO 04/29/16 09:45 05/08/16 09:24 Clonidine (Catapres) 0.1 mg Q6H PRN PO SBP>170, DBP>90 04/30/16 11:00 05/07/16 23:49 Pantoprazole Sodium (Protonix Inj) 40 mg Q12H IV PUSH 04/30/16 20:00 05/08/16 09:23 Ondansetron HCl (Zofran Inj) 4 mg Q6HR PRN IV PUSH nausea 04/30/16 18:30 04/30/16 20:14 Prednisone (Deltasone) 20 mg BID PO 05/06/16 21:00 05/08/16 09:27 Cefuroxime Axetil (Ceftin) 250 mg Q12HR PO 05/06/16 21:00 05/08/16 09:24 Objective Remarks GENERAL: Elderly female, resting in room in nad. SKIN: Warm and dry. ecchymoses improving along bilateral flanks HEAD: Normocephalic. EYES: No injection or drainage. NECK: Supple, trachea midline. CARDIOVASCULAR: Regular rate and rhythm RESPIRATORY: diminished at bases. scattered rhonchi. GASTROINTESTINAL: Abdomen soft, non-tender, nondistended. EXTREMITIES: No cyanosis NEUROLOGICAL: awake and alert, normal speech. moving all extremities. Assessment/Plan Problem List: (1) Abdominal hemorrhage Status: Acute Plan: -- Xarelto on hold -- Received one dose of Kcentra 05/03/16 and 4 units FFP 05/04-05/05 -- Monitor CBC. 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 She was placed on Xarelto that time. She came to the ER on 04/26/16 with c/o SOB. A CTA was performed that was negative for PE. She began to have coughing with abdominal pain in the hospital and a CT of the abdomen showed her to have a hemorrhage of her abdominis rectus muscle. Her Xarelto was placed on hold the following day. (2) Hx pulmonary embolism Status: Acute Plan: -- Hold Xarelto -- Likely will not need IVC filter; there is no absolute contraindication to stopping her anticoagulation until the bleeding has ceased. Assessment 76 y/o female with PMH of DVT, PE on Xarelto presents to the ER with acute SOB. Hematology following for conflicting needs: h/o emboli vs. acute bleed Plan 1. will order an additional Fentanyl pop 2. monitor CBC Attending Statement The exam, history, and the medical decision-making described in the above note were completed with the assistance of the mid-level provider. I reviewed and agree with the findings presented. I attest that I had a [id number] encounter with the patient on the same day, and personally performed and documented my assessment and findings in the medical record. Pt seen and examined. Hematoma on R abdominal rectus muscle resolving, noted ecchmosis on abdomen, ecchymosis tracking down legs on both sides. Still has pain when cough, fentanyl sucker prn. ROBIN w/ Dr. Ochoa when DC. Magda Sparks May 08, 2016 11:49 Renetta Do MD May 08, 2016 19:15
[2016-05-08 12:00] VITALS: BP 175/90; PULSE 76; RESP 16; TEMP 96.9; O2SAT 98
[2016-05-08 16:12] VITALS: BP 170/80; PULSE 78; RESP 16; TEMP 97.4; O2SAT 96
--- NOTE | 2016-05-08 19:12 | HHI.PR ---
Subjective Remarks 76 YOWF with DVT,PE, persistant cough No fever mild wheezing Has rectus abdominus muscle hematoma Pain better Cough better today Anxious to go to NH Objective Vital Signs Vital Signs Date Time Temp Pulse Resp B/P Pulse Ox O2 Delivery O2 Flow Rate FiO2 05/08/16 16:12 97.4 78 16 170/80 96 05/08/16 12:00 96.9 76 16 175/90 98 05/08/16 08:15 97 Nasal Cannula 3.00 Humidified 05/08/16 08:00 96.8 65 16 180/78 99 05/08/16 04:00 97.6 68 19 168/68 97 05/07/16 23:48 96.7 62 16 180/92 95 05/07/16 22:57 97 Nasal Cannula 3.00 Humidified 05/07/16 20:00 97.0 74 19 168/72 97 I/O 05/07/16 05/07/16 05/07/16 05/08/16 05/08/16 05/08/16 07:00 15:00 23:00 07:00 15:00 23:00 Intake Total 240 ml 840 ml 480 ml 480 ml 720 ml Balance 240 ml 840 ml 480 ml 480 ml 720 ml Intake Oral 240 ml 840 ml 480 ml 480 ml 720 ml # Voids 1 5 2 2 3 # Bowel Movements 0 2 0 0 Result Diagram: 05/08/16 0844 Objective Remarks GENERAL: WBWN WF with cough SKIN: Warm and dry. HEAD: Normocephalic. EYES: No scleral icterus. No injection or drainage. NECK: Supple, trachea midline. No JVD or lymphadenopathy. CARDIOVASCULAR: Regular rate and rhythm without murmurs, gallops, or rubs. RESPIRATORY: Breath sounds equal bilaterally. No accessory muscle use. Harsh BS, mild wheezing GASTROINTESTINAL: Abdomen soft, non-tender, nondistended. MUSCULOSKELETAL: No cyanosis, or edema. BACK: Nontender without obvious deformity. No CVA tenderness. A/P Assessment and Plan Ac Bronchitis RAD DVT PE HTN Anxiety PLAN: Aerosol nebs Robitussin DM Tessalon 200 mg tid Throat Lozenges Pain controll DC plan underway for SNF Lee Page MD May 08, 2016 19:12
[2016-05-08] MEDS: RESP: ALBUTEROL 2.5 MG/IPRATROPIUM 0.5 MG NEB (SCH) NEB (19:17)
[2016-05-08 20:00] VITALS: BP 157/78; PULSE 74; RESP 17; TEMP 97.8; O2SAT 97
[2016-05-09] VITALS: BP 134/93; PULSE 75; RESP 17; TEMP 97.3; O2SAT 97
[2016-05-09] MEDS: guaiFENesin/DEXTROMETHORPHAN 200 MG/20 MG/10 ML CUP PO SCH ×5 (02:00→20:41)
[2016-05-09] MEDS: BENZOCAINE-MENTHOL (SUGAR FREE) 15 MG-3.6 MG LOZENGE BUCCAL PRN ×2 (03:54→20:41)
[2016-05-09] MEDS: cloNIDine HCL 0.1 MG TAB PO PRN (03:54)
[2016-05-09 04:00] VITALS: BP 184/105; PULSE 68; RESP 17; TEMP 97.1; O2SAT 97
[2016-05-09 08:09] VITALS: BP 160/79; PULSE 71; RESP 18; TEMP 97.4; O2SAT 96
[2016-05-09] MEDS: PANTOPRAZOLE SODIUM 40 MG VIAL IV PUSH SCH ×2 (08:14→20:41)
[2016-05-09] MEDS: ATENOLOL 50 MG TAB PO SCH ×2 (08:15→20:41)
[2016-05-09] MEDS: guaiFENesin E.R. 600 MG TAB PO SCH ×2 (08:15→20:41)
[2016-05-09] MEDS: CITALOPRAM HYDROBROMIDE 20 MG TAB PO SCH ×2 (08:15→20:41)
[2016-05-09] MEDS: predniSONE 5 MG TAB PO SCH ×2 (08:15→20:42)
[2016-05-09] MEDS: CEFUROXIME AXETIL 250 MG TAB PO SCH ×2 (08:15→20:41)
--- NOTE | 2016-05-09 10:03 | HHI.PR ---
Subjective Interval History Patient is still has some pain on coughing and abdominal area. No other complaint review of system for 10 point system otherwise unremarkable Review of Systems Constitutional Constitutional: Weakness Vitals/Results Intake & Output 05/08/16 05/08/16 05/09/16 15:00 23:00 07:00 Intake Total 720 ml 480 ml 240 ml Balance 720 ml 480 ml 240 ml Intake Oral 720 ml 480 ml 240 ml # Voids 3 2 2 Vital Signs Vital Signs Date Time Temp Pulse Resp B/P Pulse Ox O2 Delivery O2 Flow Rate FiO2 05/09/16 08:09 97.4 71 18 160/79 96 05/09/16 04:00 97.1 68 17 184/105 97 05/09/16 00:00 97.3 75 17 134/93 97 05/08/16 20:00 97.8 74 17 157/78 97 05/08/16 20:00 Nasal Cannula 3.00 Humidified 05/08/16 16:12 97.4 78 16 170/80 96 05/08/16 12:00 96.9 76 16 175/90 98 CBC/BMP: 05/08/16 0844 Physical Exam General General Appearance: Well Developed, No Acute Distress, Comfortable, Anxious, Obese Eyes Eye Exam: Pupils Equal, Pupils Reactive Ears & Nose Ears & Nose Exam: Nasal Mucosa [place] Throat Throat Exam: Oral Mucosa [place] & Moist Neck Neck Exam: Neck Supple, Trachea Midline Pulmonary Resp Exam: Clear Bilaterally, Breath Sounds Equal, No Distress, Diminished Breath Sounds Cardiology CV Exam: Regular Gastrointestinal/Abdomen GI Exam: Soft, Bowel Sounds Present Musculoskeletal MS Exam: Normal Tone Integumentary Skin Exam: Warm, Dry Extremeties Extremities Exam: No Edema, Pedal Pulses Palpable Neurologic Neuro Exam: Alert, Awake, Oriented, Speech Clear, Moving All Extremities, No Focal Deficits Psychiatric Psych Exam: Appropriate Responses PUD Prophylasis PUD Prophylaxis: Protonix Assessment/Plan Problem List: (1) Dyspnea (2) Hypoxia (3) Bronchitis (4) Hx of deep venous thrombosis (5) Hx pulmonary embolism (6) Fibromyalgia (7) Migraine Assessment/Plan Assessment Reactive airway disease Possible COPD Anemia, Leukocytosis Rectus sheath hematoma Extensive ecchymoses Irritable bowel syndrome, controlled Migraine, controlled Hypertension, medical management Obesity, no acute changes Deconditioning, debility Was On anticoagulation for history of DVT/PE Leukocytosis, essentially unchanged, Ceftin, secondary to by mouth steroids Management Pain control with fentanyl lozenges Imitrex for migraine headache on a when necessary basis continue with Duonebs, at at bedtime O2 therapy and when necessary basis Cough medications Pulmonary following appreciate input antibiotics Ceftin Seen by hematology, Omid boles Appreciate consultants help PPI for PUD prophylaxis Pt. has multiple allergies Meds reviewed Labs and radiological data reviewed Previous notes reviewed Discussed with patient Discussed with case management assistant about DC planning, hopefully today D/W nurse Plan to discharge to SNF Problem Qualifiers (1) Dyspnea: Qualified Code: R06.00 - Dyspnea, unspecified type Lupe Goss MD May 09, 2016 10:03
--- NOTE | 2016-05-09 11:07 | HHI.PR ---
Subjective Remarks 76 YOWF with DVT,PE, persistant cough No fever Has rectus abdominus muscle hematoma Pain better Cough better today Anxious to go to NH No wheezing Objective Vital Signs Vital Signs Date Time Temp Pulse Resp B/P Pulse Ox O2 Delivery O2 Flow Rate FiO2 05/09/16 10:43 Nasal Cannula 3.00 Humidified 05/09/16 08:09 97.4 71 18 160/79 96 05/09/16 04:00 97.1 68 17 184/105 97 05/09/16 00:00 97.3 75 17 134/93 97 05/08/16 20:00 97.8 74 17 157/78 97 05/08/16 20:00 Nasal Cannula 3.00 Humidified 05/08/16 16:12 97.4 78 16 170/80 96 05/08/16 12:00 96.9 76 16 175/90 98 I/O 05/08/16 05/08/16 05/08/16 05/09/16 05/09/16 05/09/16 07:00 15:00 23:00 07:00 15:00 23:00 Intake Total 480 ml 720 ml 480 ml 240 ml Balance 480 ml 720 ml 480 ml 240 ml Intake Oral 480 ml 720 ml 480 ml 240 ml # Voids 2 3 2 2 # Bowel Movements 0 Result Diagram: 05/08/16 0844 Objective Remarks GENERAL: WBWN WF with cough SKIN: Warm and dry. HEAD: Normocephalic. EYES: No scleral icterus. No injection or drainage. NECK: Supple, trachea midline. No JVD or lymphadenopathy. CARDIOVASCULAR: Regular rate and rhythm without murmurs, gallops, or rubs. RESPIRATORY: Breath sounds equal bilaterally. No accessory muscle use. Harsh BS, GASTROINTESTINAL: Abdomen soft, non-tender, nondistended. MUSCULOSKELETAL: No cyanosis, or edema. BACK: Nontender without obvious deformity. No CVA tenderness. A/P Assessment and Plan Ac Bronchitis RAD DVT PE HTN Anxiety PLAN: Aerosol nebs Robitussin DM Tessalon 200 mg tid Throat Lozenges Pain controll DC plan underway for SNF Lee Page MD May 09, 2016 11:07
[2016-05-09 12:00] VITALS: BP 153/77; PULSE 63; RESP 18; TEMP 97.5; O2SAT 99
[2016-05-09] MEDS: BENZONATATE 100 MG CAP PO PRN (15:09)
[2016-05-09 16:00] VITALS: BP 147/68; PULSE 69; RESP 18; TEMP 97.6; O2SAT 97
[2016-05-09 20:00] VITALS: BP 151/81; PULSE 77; RESP 16; TEMP 98.1; O2SAT 98
[2016-05-09] MEDS: RESP: ALBUTEROL 2.5 MG/IPRATROPIUM 0.5 MG NEB (SCH) NEB (21:00)
[2016-05-10] VITALS: BP_SYST 187; BP_SYST 203; BP_DIAS 83; BP_DIAS 90; PULSE 68; RESP 16; TEMP 97.4; O2SAT 99
[2016-05-10] MEDS: cloNIDine HCL 0.1 MG TAB PO PRN ×2 (01:25→14:16)
[2016-05-10] MEDS: BENZOCAINE-MENTHOL (SUGAR FREE) 15 MG-3.6 MG LOZENGE BUCCAL PRN ×2 (01:25→20:46)
[2016-05-10] MEDS: guaiFENesin/DEXTROMETHORPHAN 200 MG/20 MG/10 ML CUP PO SCH ×4 (01:25→20:46)
[2016-05-10 04:00] VITALS: BP 151/87; PULSE 63; RESP 18; TEMP 96.7; O2SAT 100
[2016-05-10 08:00] VITALS: BP 138/80; PULSE 66; RESP 18; TEMP 97.5; O2SAT 97
[2016-05-10] MEDS ORDERED: FENTANYL BUCCAL ONE ×2 (10:00→11:00)
[2016-05-10] MEDS: CEFUROXIME AXETIL 250 MG TAB PO SCH ×2 (10:19→20:47)
[2016-05-10] MEDS: DICYCLOMINE HCL 20 MG TAB PO SCH (10:19)
[2016-05-10] MEDS: guaiFENesin E.R. 600 MG TAB PO SCH ×2 (10:19→20:46)
[2016-05-10] MEDS: CITALOPRAM HYDROBROMIDE 20 MG TAB PO SCH ×2 (10:19→20:47)
[2016-05-10] MEDS: PANTOPRAZOLE SODIUM 40 MG VIAL IV PUSH SCH ×2 (10:20→20:47)
[2016-05-10] MEDS: ATENOLOL 50 MG TAB PO SCH ×2 (10:20→20:47)
[2016-05-10] MEDS: predniSONE 5 MG TAB PO SCH ×2 (10:27→20:46)
[2016-05-10 12:00] VITALS: BP 189/90; PULSE 62; RESP 18; TEMP 97.1; O2SAT 96
--- NOTE | 2016-05-10 13:08 | HHI.PR ---
Subjective Interval History pt has some pain, meds help her no other complaint feeling better ROs for 10 point system is unremarkable Review of Systems Constitutional Constitutional: Weakness Vitals/Results Intake & Output 05/09/16 05/09/16 05/10/16 15:00 23:00 07:00 Intake Total 480 ml 400 ml 400 ml Balance 480 ml 400 ml 400 ml Intake Oral 480 ml 400 ml 400 ml # Voids 2 1 2 # Bowel Movements 0 0 Vital Signs Vital Signs Date Time Temp Pulse Resp B/P Pulse Ox O2 Delivery O2 Flow Rate FiO2 05/10/16 10:47 Nasal Cannula 3.00 05/10/16 08:00 97.5 66 18 138/80 97 05/10/16 04:00 96.7 63 18 151/87 100 05/10/16 00:00 97.4 68 16 187/83 99 05/09/16 20:00 Nasal Cannula 3.00 Humidified 05/09/16 20:00 98.1 77 16 151/81 98 05/09/16 16:00 97.6 69 18 147/68 97 CBC/BMP: 05/08/16 0844 Physical Exam General General Appearance: Well Developed, No Acute Distress, Comfortable, Anxious, Obese Eyes Eye Exam: Pupils Equal, Pupils Reactive Ears & Nose Ears & Nose Exam: Nasal Mucosa [place] Throat Throat Exam: Oral Mucosa [place] & Moist Neck Neck Exam: Neck Supple, Trachea Midline Pulmonary Resp Exam: Clear Bilaterally, Breath Sounds Equal, No Distress, Diminished Breath Sounds Cardiology CV Exam: Regular Gastrointestinal/Abdomen GI Exam: Soft, Bowel Sounds Present Musculoskeletal MS Exam: Normal Tone Integumentary Skin Exam: Warm, Dry Extremeties Extremities Exam: No Edema, Pedal Pulses Palpable Neurologic Neuro Exam: Alert, Awake, Oriented, Speech Clear, Moving All Extremities, No Focal Deficits Psychiatric Psych Exam: Appropriate Responses PUD Prophylasis PUD Prophylaxis: Protonix Assessment/Plan Problem List: (1) Dyspnea (2) Hypoxia (3) Bronchitis (4) Hx of deep venous thrombosis (5) Hx pulmonary embolism (6) Fibromyalgia (7) Migraine Assessment/Plan Assessment Reactive airway disease Possible COPD Anemia, Leukocytosis Rectus sheath hematoma Extensive ecchymoses Irritable bowel syndrome, controlled Migraine, controlled Hypertension, medical management Obesity, no acute changes Deconditioning, debility Was On anticoagulation for history of DVT/PE Leukocytosis, essentially unchanged, Ceftin, secondary to by mouth steroids Management Pain control with fentanyl lozenges Imitrex for migraine headache on a when necessary basis continue with Duonebs, at at bedtime O2 therapy and when necessary basis Cough medications helping her Pulmonary following appreciate input antibiotics Julitain Seen by hematology, Omid boles Appreciate consultants help PPI for PUD prophylaxis Pt. has multiple allergies Meds reviewed Previous notes reviewed Discussed with patient Discussed with case investigator about DC planning, hopefully today onc authorization completed D/W nurse Plan to discharge to SNF Problem Qualifiers (1) Dyspnea: Qualified Code: R06.00 - Dyspnea, unspecified type Lupe Goss MD May 10, 2016 13:07
[2016-05-10 16:00] VITALS: BP 117/70; PULSE 69; RESP 16; TEMP 98.4; O2SAT 92
--- NOTE | 2016-05-10 16:24 | HHI.FF ---
Face to Face Verification Diagnosis: (1) Dyspnea (2) Hypoxia (3) Bronchitis (4) Fibromyalgia (5) Hx of deep venous thrombosis (6) Hx pulmonary embolism (7) Abdominal hemorrhage Physical Therapy Order: Evaluate and Treat, Improve ambulation, Strength and gait training Occupational Therapy Order: Evaluate and Treat, Improve ADL, Gross motor coordination, Fine motor coordination Home Health Nursing Order: Signs/symptoms of disease process Instructions: vital signs Home Health Aide Order: To Assist In: Bathing and personal care I have seen patient Diana Alva on 05/10/16. My clinical findings support the need for the requested home health care services because: Patient has SOB Deconditioned w/ increased weakness Med compliance is questionable Limited ability to care for self High risk of falls I certify that my clinical findings support that this patient is homebound because: Hx COPD- exertion dyspnea/weakness Unsteady gait/balance Need for psychosocial assistance Poor cardiac reserve Dominga Shelley May 10, 2016 16:24
--- NOTE | 2016-05-10 16:48 | HHI.PR ---
Subjective Remarks 76 YOWF with DVT,PE, persistant cough No fever Cough better today No wheezing I Am going back home. [facility] in the [facility] Objective Vital Signs Vital Signs Date Time Temp Pulse Resp B/P Pulse Ox O2 Delivery O2 Flow Rate FiO2 05/10/16 12:00 97.1 62 18 189/90 96 05/10/16 11:15 18 05/10/16 10:47 Nasal Cannula 3.00 05/10/16 08:00 97.5 66 18 138/80 97 05/10/16 04:00 96.7 63 18 151/87 100 05/10/16 00:00 97.4 68 16 187/83 99 05/09/16 20:00 Nasal Cannula 3.00 Humidified 05/09/16 20:00 98.1 77 16 151/81 98 I/O 05/09/16 05/09/16 05/09/16 05/10/16 05/10/16 05/10/16 07:00 15:00 23:00 07:00 15:00 23:00 Intake Total 240 ml 480 ml 400 ml 400 ml Balance 240 ml 480 ml 400 ml 400 ml Intake Oral 240 ml 480 ml 400 ml 400 ml # Voids 2 2 1 2 # Bowel Movements 0 0 Result Diagram: 05/08/16 0844 Objective Remarks GENERAL: WBWN WF with cough SKIN: Warm and dry. HEAD: Normocephalic. EYES: No scleral icterus. No injection or drainage. NECK: Supple, trachea midline. No JVD or lymphadenopathy. CARDIOVASCULAR: Regular rate and rhythm without murmurs, gallops, or rubs. RESPIRATORY: Breath sounds equal bilaterally. No accessory muscle use. Harsh BS, GASTROINTESTINAL: Abdomen soft, non-tender, nondistended. MUSCULOSKELETAL: No cyanosis, or edema. BACK: Nontender without obvious deformity. No CVA tenderness. A/P Assessment and Plan Ac Bronchitis RAD DVT PE HTN Anxiety PLAN: Aerosol nebs Robitussin DM Tessalon 200 mg tid Throat Lozenges Stable from pulm standpoint Lee Page MD May 10, 2016 16:48
[2016-05-10] MEDS: RESP: ALBUTEROL 2.5 MG/IPRATROPIUM 0.5 MG NEB (SCH) NEB (19:48)
[2016-05-10 20:00] VITALS: BP 118/69; PULSE 80; RESP 16; TEMP 97.6; O2SAT 96
[2016-05-11] VITALS: BP 123/78; PULSE 70; RESP 16; TEMP 96.8; O2SAT 95
[2016-05-11] MEDS: guaiFENesin/DEXTROMETHORPHAN 200 MG/20 MG/10 ML CUP PO SCH ×3 (02:00→14:31)
[2016-05-11] MEDS: BENZONATATE 100 MG CAP PO PRN (03:04)
[2016-05-11 04:00] VITALS: BP 156/84; PULSE 79; RESP 16; TEMP 98.4; O2SAT 93
[2016-05-11 08:00] VITALS: BP 173/88; PULSE 78; RESP 20; TEMP 97.1; O2SAT 94
[2016-05-11 09:06] VITALS: O2SAT 98
[2016-05-11] MEDS: ATENOLOL 50 MG TAB PO SCH (09:30)
[2016-05-11] MEDS: predniSONE 5 MG TAB PO SCH (09:30)
[2016-05-11] MEDS: PANTOPRAZOLE SODIUM 40 MG VIAL IV PUSH SCH (09:30)
[2016-05-11] MEDS: guaiFENesin E.R. 600 MG TAB PO SCH (09:30)
[2016-05-11] MEDS: CITALOPRAM HYDROBROMIDE 20 MG TAB PO SCH (09:31)
[2016-05-11] MEDS: CEFUROXIME AXETIL 250 MG TAB PO SCH (09:39)
[2016-05-11 12:00] VITALS: BP 168/87; PULSE 74; RESP 18; TEMP 97.1; O2SAT 93
--- NOTE | 2016-05-11 13:37 | HHI.PR ---
Subjective Interval History Feeling better wants to go home Walking with a walker Pain is improving need some pain medication for home No nausea vomiting or diarrhea Breathing better Denies any other complaint Review of system for 10 point system otherwise unremarkable Review of Systems Constitutional Constitutional: Weakness Vitals/Results Intake & Output 05/10/16 05/10/16 05/11/16 15:00 23:00 07:00 Intake Total 960 ml 250 ml 300 ml Output Total 450 ml Balance 960 ml 250 ml -150 ml Intake Oral 960 ml 250 ml 300 ml Output Urine Total 450 ml # Voids 4 2 # Bowel Movements 2 0 0 Vital Signs Vital Signs Date Time Temp Pulse Resp B/P Pulse Ox O2 Delivery O2 Flow Rate FiO2 05/11/16 12:00 97.1 74 18 168/87 93 05/11/16 09:30 Room Air 05/11/16 09:06 98 Nasal Cannula 21 05/11/16 08:00 97.1 78 20 173/88 94 05/11/16 04:00 98.4 79 16 156/84 93 05/11/16 00:00 96.8 70 16 123/78 95 05/10/16 20:48 Room Air 92 05/10/16 20:00 97.6 80 16 118/69 96 05/10/16 16:00 98.4 69 16 117/70 92 CBC/BMP: 05/08/16 0844 Physical Exam General General Appearance: Well Developed, No Acute Distress, Comfortable, Anxious, Obese Eyes Eye Exam: Pupils Equal, Pupils Reactive Ears & Nose Ears & Nose Exam: Nasal Mucosa Lely Throat Throat Exam: Oral Mucosa Lely & Moist Neck Neck Exam: Neck Supple, Trachea Midline Pulmonary Resp Exam: Clear Bilaterally, Breath Sounds Equal, No Distress Cardiology CV Exam: Regular Gastrointestinal/Abdomen GI Exam: Soft, Bowel Sounds Present Musculoskeletal MS Exam: Normal Tone Integumentary Skin Exam: Warm, Dry Extremeties Extremities Exam: No Edema, Pedal Pulses Palpable Neurologic Neuro Exam: Alert, Awake, Oriented, Speech Clear, Moving All Extremities, No Focal Deficits Psychiatric Psych Exam: Appropriate Responses PUD Prophylasis PUD Prophylaxis: Protonix Assessment/Plan Problem List: (1) Dyspnea (2) Hypoxia (3) Bronchitis (4) Hx of deep venous thrombosis (5) Hx pulmonary embolism (6) Fibromyalgia (7) Migraine Assessment/Plan Assessment Reactive airway disease Possible COPD Anemia, Leukocytosis Rectus sheath hematoma Extensive ecchymoses Irritable bowel syndrome, controlled Migraine, controlled Hypertension, medical management Obesity, no acute changes Deconditioning, debility Was On anticoagulation for history of DVT/PE Leukocytosis, essentially unchanged, Ceftin, secondary to by mouth steroids Management Pain control with fentanyl lozenges. Will give prescription and advised to go to her primary care doctor if needed further Imitrex for migraine headache on a when necessary basis. Patient has it at home Cough medications helping her advise [id number] Pulmonary following appreciate input antibiotics Ceftin Seen by hematology, Omid boles Appreciate consultants help PPI for PUD prophylaxis Pt. has multiple allergies Meds reviewed Previous notes reviewed Discussed with patient Discussed with vocational case manager about DC planning, will DC home today with home health care D/W nurse Problem Qualifiers (1) Dyspnea: Qualified Code: R06.00 - Dyspnea, unspecified type Lupe Goss MD May 11, 2016 13:37
[2016-05-11] MEDS ORDERED: [UNRECOGNIZED DRUG - CODE] BUCCAL (13:49)
--- NOTE | 2016-05-11 17:28 | HHI.PR ---
Subjective Remarks 76 YOWF with DVT,PE, persistant cough No fever Cough better today No wheezing I Am going back home. [facility] in the [facility] No new complaint Objective Vital Signs Vital Signs Date Time Temp Pulse Resp B/P Pulse Ox O2 Delivery O2 Flow Rate FiO2 05/11/16 12:00 97.1 74 18 168/87 93 05/11/16 09:30 Room Air 05/11/16 09:06 98 Nasal Cannula 21 05/11/16 08:00 97.1 78 20 173/88 94 05/11/16 04:00 98.4 79 16 156/84 93 05/11/16 00:00 96.8 70 16 123/78 95 05/10/16 20:48 Room Air 92 05/10/16 20:00 97.6 80 16 118/69 96 I/O 05/10/16 05/10/16 05/10/16 05/11/16 05/11/16 05/11/16 07:00 15:00 23:00 07:00 15:00 23:00 Intake Total 400 ml 960 ml 250 ml 300 ml 600 ml Output Total 450 ml Balance 400 ml 960 ml 250 ml -150 ml 600 ml Intake Oral 400 ml 960 ml 250 ml 300 ml 600 ml Output Urine Total 450 ml # Voids 2 4 2 1 # Bowel Movements 0 2 0 0 Result Diagram: 05/08/16 0844 Objective Remarks GENERAL: WBWN WF with cough SKIN: Warm and dry. HEAD: Normocephalic. EYES: No scleral icterus. No injection or drainage. NECK: Supple, trachea midline. No JVD or lymphadenopathy. CARDIOVASCULAR: Regular rate and rhythm without murmurs, gallops, or rubs. RESPIRATORY: Breath sounds equal bilaterally. No accessory muscle use. Harsh BS, GASTROINTESTINAL: Abdomen soft, non-tender, nondistended. MUSCULOSKELETAL: No cyanosis, or edema. BACK: Nontender without obvious deformity. No CVA tenderness. A/P Assessment and Plan Ac Bronchitis RAD DVT PE HTN Anxiety PLAN: Aerosol nebs Robitussin DM Tessalon 200 mg tid Throat Lozenges Dc plans for today WillFU in office Lee Page MD May 11, 2016 17:28
== END 2016-05-11 16:37 | disposition home health service (06) | DRG 202 ==
LOC: NEPC 10:25 → NEDA 14:21 → NEPGCP 20:05 → OBSVTOIN 04-27 09:46 → HOCB 04-27 17:20
PROVIDERS: ADMIT Specialist; ATTEND Specialist
PROC: 3E0F7GC Introduction of Other Therapeutic Substance into Respiratory Tract, Via Natural or Artificial Opening (ICD-10-PCS; principal; 2016-04-27)
PROC: 30233K1 Transfusion of Nonautologous Frozen Plasma into Peripheral Vein, Percutaneous Approach (ICD-10-PCS; 2016-05-04)
DX: J20.9 Acute bronchitis, unspecified (principal); R04.2 Hemoptysis; K76.89 Other specified diseases of liver; D63.8 Anemia in other chronic diseases classified elsewhere; I10 Essential (primary) hypertension; S30.1XXA Contusion of abdominal wall, initial encounter; R44.0 Auditory hallucinations; J45.909 Unspecified asthma, uncomplicated; E86.0 Dehydration; E78.00 Pure hypercholesterolemia, unspecified; Z86.711 Personal history of pulmonary embolism; Z86.718 Personal history of other venous thrombosis and embolism; Z79.02 Long term (current) use of antithrombotics/antiplatelets; M19.90 Unspecified osteoarthritis, unspecified site; M79.7 Fibromyalgia; Z88.5 Allergy status to narcotic agent; Z88.2 Allergy status to sulfonamides; Z88.6 Allergy status to analgesic agent; Z88.1 Allergy status to other antibiotic agents; Z91.040 Latex allergy status; G43.909 Migraine, unspecified, not intractable, without status migrainosus; D73.89 Other diseases of spleen; E78.5 Hyperlipidemia, unspecified; F41.9 Anxiety disorder, unspecified; X58.XXXA Exposure to other specified factors, initial encounter; Y93.9 Activity, unspecified; Y92.9 Unspecified place or not applicable; J98.09 Other diseases of bronchus, not elsewhere classified; Z80.9 Family history of malignant neoplasm, unspecified; Z84.89 Family history of other specified conditions; R09.02 Hypoxemia; R45.1 Restlessness and agitation; T38.0X5A Adverse effect of glucocorticoids and synthetic analogues, initial encounter; Y92.230 Patient room in hospital as the place of occurrence of the external cause; K58.9 Irritable bowel syndrome, unspecified; E66.9 Obesity, unspecified
CPT/HCPCS: 36430; 71010; 71020; 71275; 74020; 74177; 80048; 80053; 81001; 82550; 83880; 84484; 85007; 85014; 85018; 85027; 85384; 85610; 85730; 86927; 87040; 87493; 87804; 93005; 94060; 94640; 94664; 96374; C9113; C9132; G0378; J0696; J1956; J2405; J2920; J2930; J3010; J3030; J7050; J7512; P9017; Q9963; Q9967